=== PATIENT | male | born 1965 | race Caucasian/White ===

== ENCOUNTER → 2016-08-07 | Outpatient (CLI) | payer OTHER, BC ==
[~2016-08-07] MED LIST: ANDROGEL TOP; MOME50SP5; MULT-506 PO; PRLSR20 PO; SERT-234 PO
[2016-08-07 15:54] LABS: BASO % 0.2 %; BASO ABS # 0.01 K/uL (0-0.2); COMPLETE YES; EOS % 2.6 %; HEMATOCRIT 42.5 % (42-52); IG% 0.7 %; LYMPH % 15.4 %; LYMPH ABS # 0.94 K/uL (1.2-3.4); MEAN CELL VOLUME 88.5 fL (80-100); MEAN CORPUSCULAR HEMOGLOBIN 32.1 pg (25-34); MEAN CORPUSCULAR HGB CONC 36.2 g/dl (32-36); MEAN PLATELET VOLUME 10.4 fL (7.4-10.4); MONO % 6.9 %; NEUT % 74.2 %; PLATELET COUNT 175 K/uL (130-400)
--- NOTE | 2016-08-07 15:59 | DIAGNOSTIC IMAGING REPORT ---
LEFT SHOULDER MIN 2 VIEWS ROUTINE CLINICAL HISTORY: ARTHRITIS pain COMPARISON: None. DISCUSSION: The bones and joint spaces appear intact. There is no evidence of fracture, dislocation or bony disease. There is no evidence for soft tissue swelling. IMPRESSION: Negative study. Electronically signed by: Chito Noe M.D. 08/07/2016 3:57 PM Dictated Date/Time: 08/07/2016 3:57 PM
--- NOTE | 2016-08-07 16:00 | DIAGNOSTIC IMAGING REPORT ---
RIGHT SHOULDER MIN 2 VIEWS ROUTINE CLINICAL HISTORY: ARTHRITIS Right COMPARISON: None. DISCUSSION: The bones and joint spaces appear intact. There is no evidence of fracture, dislocation or bony disease. Minimal to mild degenerative change acromioclavicular joint. IMPRESSION: Minimal degenerative change acromioclavicular joint. Otherwise negative study. Electronically signed by: Chito Noe M.D. 08/07/2016 3:58 PM Dictated Date/Time: 08/07/2016 3:58 PM
--- NOTE | 2016-08-07 16:01 | DIAGNOSTIC IMAGING REPORT ---
RIGHT HAND MIN 3 VIEWS ROUTINE, LEFT HAND MIN 3 VIEWS ROUTINE CLINICAL HISTORY: ARTHRITIS Right. Bilateral hand pain. COMPARISON STUDY: None. FINDINGS: No fracture or dislocation. Soft tissues are unremarkable. No erosions identified. Bone mineralization is intact. Minimal cartilage space narrowing at the DIP joints. IMPRESSION: Minimal degenerative changes at the bilateral DIP joints. No erosions identified. Electronically signed by: Kme Mendieta M.D. 08/07/2016 4:00 PM Dictated Date/Time: 08/07/2016 3:57 PM
--- NOTE | 2016-08-07 16:01 | DIAGNOSTIC IMAGING REPORT ---
RIGHT HIP UNILATERAL 2 VIEWS CLINICAL HISTORY: ARTHRITIS Right pain COMPARISON: None. DISCUSSION: The bones and joint spaces appear intact. There is no evidence of fracture, dislocation or bony disease. There is no evidence for soft tissue swelling. IMPRESSION: Negative study. Electronically signed by: Chito Noe M.D. 08/07/2016 4:00 PM Dictated Date/Time: 08/07/2016 3:59 PM
--- NOTE | 2016-08-07 16:04 | DIAGNOSTIC IMAGING REPORT ---
LEFT HIP 2 VIEWS HISTORY: Left hip pain. ARTHRITIS COMPARISON: None. FINDINGS: There is no fracture or dislocation. Soft tissues are unremarkable. No radiopaque foreign bodies. The left hip cartilage space is maintained for age. Bone mineralization is intact. IMPRESSION: No significant degenerative changes within the left hip. Electronically signed by: Kem Mendieta M.D. 08/07/2016 4:02 PM Dictated Date/Time: 08/07/2016 4:01 PM
[2016-08-07 16:53] LABS: TOTAL IRON BINDING CAPACITY 376 mcg/dl (250-450)
[2016-08-07 16:54] LABS: ALKALINE PHOSPHATASE 86 U/L (45-117); AST/SGOT 26 U/L (15-37); BLOOD UREA NITROGEN 17 mg/dl (7-18); BUN/CREATININE RATIO 17.2 (10-20); CALCIUM 7.9 mg/dl (8.5-10.1); CARBON DIOXIDE 25 mmol/L (21-32); CHLORIDE 108 mmol/L (98-107); CREATININE 0.99 mg/dl (0.60-1.40); POTASSIUM 4.1 mmol/L (3.5-5.1); RHEUMATOID FACTOR < 10.0 U/mL (0-15); SODIUM 143 mmol/L (136-145)
[2016-08-07 16:56] LABS: ALB/GLOB RATIO 1.4 (0.9-2)
[2016-08-07 16:57] LABS: ALT/SGPT 50 U/L (12-78)
[2016-08-07 17:18] LABS: GLUCOSE 104 mg/dl (70-99)
[2016-08-12 04:29] LABS: 18KDIGG BAND NONREACTIVE (NONREACTIVE); 23KDIGG BAND NONREACTIVE (NONREACTIVE); 23KDIGM BAND NONREACTIVE (NONREACTIVE); 28KDIGG BAND NONREACTIVE (NONREACTIVE); 30KDIGG BAND NONREACTIVE (NONREACTIVE); 39KDIGG BAND NONREACTIVE (NONREACTIVE); 39KDIGM BAND NONREACTIVE (NONREACTIVE); 41KDIGG BAND NONREACTIVE (NONREACTIVE); 41KDIGM BAND NONREACTIVE (NONREACTIVE); 45KDIGG BAND NONREACTIVE (NONREACTIVE); 58KDIGG BAND NONREACTIVE (NONREACTIVE); 66KDIGG BAND NONREACTIVE (NONREACTIVE); 93KDIGG BAND NONREACTIVE (NONREACTIVE)
== END | disposition home or self-care (01) ==
LOC: C.RAD 14:43
PROVIDERS: ATTEND Family Medicine
DX: R53.83 Other fatigue (principal); M25.50 Pain in unspecified joint; M19.90 Unspecified osteoarthritis, unspecified site

== ENCOUNTER → 2016-09-04 | Outpatient (CLI) | payer OTHER, BC ==
[2016-09-04 12:52] LABS: THYROID STIMULATING HORMONE 1.51 uIu/ml (0.300-4.500)
== END | disposition home or self-care (01) ==
LOC: C.LABBFT 10:24
PROVIDERS: ATTEND Family Medicine
DX: E03.9 Hypothyroidism, unspecified (principal)

== ENCOUNTER 2021-10-01 16:04 | Observation (INO) ==
--- NOTE | 2021-10-01 16:08 | Emergency Department Note ---
Impression & Plan TIA (transient ischemic attack), Hyponatremia ED Provider Note NAME: OUSMANE LISA AGE: 55 SEX: M : 1965 ARRIVES VIA: Ambulance INFORMANT: Patient, ED PROVIDER(S): Reinaldo Kwon MD Chief Complaint: Right upper extremity weakness and facial droop, stroke alert HPI: Patient presents as a stroke alert from EMS. Patient's last known well was 3 PM when the patient developed right-sided facial weakness and right upper extremity weakness. Patient reportedly had improvement in symptoms while he was evaluated by EMS and had a normal BSG. The patient currently denies any symptoms head or neck pain. The patient denies any chest pain or shortness of breath. The patient did have some nausea with associated vomiting after receiving the CAT scan dye. Patient denies any prior history of stroke or mini stroke. Patient denies any history of seizure. Patient denies any alcohol tobacco or drug use. A code stroke was initiated in the field and the patient was taken directly to CT scan prior to my evaluation. ROS: See HPI for pertinent positives and negatives. A total of 10 systems were reviewed and otherwise negative. Past medical history: See below Surgical history: See below Social history: See below Physical Exam: GENERAL: NAD, wearing a mask, non-toxic. EYE EXAM: Normal conjunctiva. PERRL, no anisocoria and EOM's grossly intact w/o pain. OROPHARYNX: Moist mucus membranes. Grossly normal dentition. NECK: Supple, no nuchal rigidity, no adenopathy, non-tender. No signs of meningismus. LUNGS: Clear to auscultation. Normal chest wall mechanics. HEART: NSR, no MRG. ABDOMEN: Abdomen soft, non-tender, normo-active bowel sounds, no masses, no rebound or guarding. BACK: No CVA TTP. SKIN: No rashes and no bruising. UPPER EXTREMITIES: Upper extremities are grossly normal. LOWER EXTREMITIES: Grossly normal, no edema. NEURO EXAM: A&O x3, cranial nerves II-XII grossly intact, normal speech, moves all 4 extremities on command w/o issue. Good finger to nose, no drift, no sensory deficits. Differential diagnoses: Infection, dehydration, metabolic abnormality, hypo/hyperglycemia, electrolyte disturbance, anemia, hypoxia, cardiac sources, intracerebral event, toxicologic, neurologic, as well as other pathologies. Course: Patient was seen and evaluated the bedside. Full history physical exam was performed. EKG interpreted by me Normal sinus rhythm, rate of 60, normal intervals, normal axis, no ST changes or T WI. Imaging Studies: See Below Cardiac monitoring: An order was placed for continuous cardiac monitoring. The monitor shows a rate of 62 with sinus rhythm. MDM: Patient was seen due to concern for strokelike symptoms. I did evaluate the patient the patient did not have any obvious concerning findings on exam. The patient may have had slight difficulty with [id number] of the left upper extremity but the patient did not have any evidence of right upper extremity weakness or facial droop. I did convey these findings and symptoms to the telestroke neurologist Dr. Maya. She stated that she would be happy to evaluate the patient but stated that this would likely not change the patient's overall disposition unless there was concern on the patient's CT or CT angiography's. She did recommend that the patient be given aspirin and Plavix as there is no evidence of bleeding. She stated the Plavix would be a 300 load and then subsequently at 75. She recommended checking lipid panel MRI brain, hemoglobin A1c and echocardiogram. The patient CT head and CT angiography head and neck are negative. Blood work shows a normal white count virtually normal hemoglobin at 13.9. Platelet count is unremarkable. Patient's kidney function is unremarkable with mild hyponatremia. COVID-negative. The patient was ordered baby aspirin and 300 of Plavix. I did speak with the on-call hospitalist Dr. Velarde. The patient was admitted to the medicine service. MR brain ordered and pending at the time of admission. Past Med/Surg History Medical History Arthritis Depression GERD (gastroesophageal reflux disease) Severe persistent asthma Tremor Surgical History History of appendectomy History of carpal tunnel surgery History of cholecystectomy Family History Other Cancer Diabetes Denies family history of Heart disease Lung disease Asthma Social History (Updated 10/01/21 @ 19:14 by Reinaldo Kwon MD) Smoking Status: Never smoker Hx Alcohol Use: No Hx Substance Use: No Feels Safe at Home: Yes Allergies Allergies Allergy/AdvReac Type Severity Reaction Status Date / Time oxycodone Allergy Intermediate Vomiting Verified 10/01/21 16:44 hydrocodone AdvReac Intermediate Vomiting Verified 10/01/21 16:44 Home Meds Home Medications Medication Instructions Recorded Confirmed omeprazole magnesium 20 mg 20 mg PO QAM 11/05/19 10/01/21 tablet,delayed release diclofenac potassium 50 mg tablet 100 mg PO TID 12/24/20 10/01/21 sertraline 100 mg tablet 200 mg PO DAILY 12/24/20 10/01/21 budesonide 0.5 mg/2 mL suspension 0.5 mg INHALATION BID PRN 10/01/21 10/01/21 for nebulization cetirizine 10 mg tablet 10 mg PO DAILY 10/01/21 10/01/21 fluticasone propionate 50 1 - 2 spray INTRANASAL BID PRN 10/01/21 10/01/21 mcg/actuation nasal spray,suspension ibuprofen 200 mg tablet 400 - 600 mg PO DIRECTED PRN 10/01/21 10/01/21 methylprednisolone 4 mg tablet 0 mg PO DAILY 10/01/21 10/01/21 propranolol 20 mg tablet 20 mg PO TID PRN 10/01/21 10/01/21 Results & Data (ED) Vital Signs Vital Signs - 24 hr 10/01/21 16:25 10/01/21 16:56 10/01/21 17:56 Temperature 36.8 C 36.5 C Temperature Source Oral Oral Pulse Rate 63 Pulse Rate [Apical] 59 L 70 Pulse Rhythm Regular Pulse Strength Normal Respiratory Rate 15 15 16 Respiratory Effort / Characteristics Non-Labored Spontaneous Respiratory Depth Normal Respiratory Pattern Regular Blood Pressure 164/96 H Blood Pressure [Right Arm] 126/79 129/70 Blood Pressure Mean 118 Blood Pressure Mean [Right Arm] 94 89 Blood Pressure Position Lying Blood Pressure Position [Right Arm] Lying Pulse Oximetry 94 96 94 Oxygen Delivery Method Room Air Room Air Sepsis Recent Fever Within 48 Hours No Sepsis New/Unexplained Change in Mental Status No Sepsis Action Taken by Nursing No Action Required Home Medications Current Medication List: was personally reviewed by me Laboratory Data Attestation: I reviewed the patient's lab results. Result diagrams: 10/01/21 16:21 10/01/21 16:21 Lab Results 10/01/21 10/01/21 10/01/21 Range/Units 16:21 16:21 16:21 WBC 5.75 (4.8-10.8) K/uL RBC 4.48 L (4.7-6.1) M/uL Hgb 13.9 L (14.0-18.0) g/dL Hct 39.5 L (42-52) % MCV 88.2 (80-100) fL MCH 31.0 (25-34) pg MCHC 35.2 (32-36) g/dL RDW Std Deviation 46.6 H (36.4-46.3) fL RDW Coeff of Cheryl 14.4 (11.5-14.5) % Plt Count 176 (130-400) K/uL MPV 9.2 (7.4-10.4) fL Immature Gran % (Auto) 0.2 % Neut % (Auto) 60.9 % Lymph % (Auto) 24.2 % [place] % (Auto) 7.7 % Eos % (Auto) 6.8 % Baso % (Auto) 0.2 % Neut # (Auto) 3.51 (1.4-6.5) K/uL Lymph # (Auto) 1.39 (1.2-3.4) K/uL [place] # (Auto) 0.44 (0.11-0.59) K/uL Eos # (Auto) 0.39 (0-0.5) K/uL Baso # (Auto) 0.01 (0-0.2) K/uL Immature Gran # (Auto) 0.01 (0.00-0.02) K/uL PT 11.3 (9.0-12.0) Seconds INR 1.1 (0.9-1.1) APTT 41.6 H (21.0-31.0) Seconds PTT Ratio 1.5 Sodium 133 L (136-145) mmol/L Potassium 4.0 (3.5-5.1) mmol/L Chloride 99 (98-107) mmol/L Carbon Dioxide 30 (21-32) mmol/L Anion Gap 4 (3-11) BUN 16 (6-23) mg/dl Creatinine 1.11 (0.6-1.4) mg/dl Est Cr Clr Drug Dosing 89.6 ml/min Est GFR ( Amer) 85.6 ml/min Est GFR (Non-Af Amer) 73.8 ml/min BUN/Creatinine Ratio 14.4 (10-20) Glucose 83 (70-99(Fasting)) mg/dl Calcium 8.6 (8.5-10.1) mg/dl Magnesium 1.8 (1.7-2.4) mg/dl Total Bilirubin 1.0 (0.2-1.0) mg/dl AST 17 (13-39) U/L ALT 16 (7-52) U/L Alkaline Phosphatase 66 (34-104) U/L Troponin I High Sens 3.6 (0-20) pg/ml Total Protein 7.0 (6.0-8.3) gm/dl Albumin 4.2 (3.4-5.0) gm/dl Globulin 2.8 (2.5-4.0) gm/dl Albumin/Globulin Ratio 1.5 (0.9-2) SARS-CoV-2, RNA, NAAT (NEGATIVE) 10/01/21 Range/Units 17:50 WBC (4.8-10.8) K/uL RBC (4.7-6.1) M/uL Hgb (14.0-18.0) g/dL Hct (42-52) % MCV (80-100) fL MCH (25-34) pg MCHC (32-36) g/dL RDW Std Deviation (36.4-46.3) fL RDW Coeff of Cheryl (11.5-14.5) % Plt Count (130-400) K/uL MPV (7.4-10.4) fL Immature Gran % (Auto) % Neut % (Auto) % Lymph % (Auto) % [place] % (Auto) % Eos % (Auto) % Baso % (Auto) % Neut # (Auto) (1.4-6.5) K/uL Lymph # (Auto) (1.2-3.4) K/uL [place] # (Auto) (0.11-0.59) K/uL Eos # (Auto) (0-0.5) K/uL Baso # (Auto) (0-0.2) K/uL Immature Gran # (Auto) (0.00-0.02) K/uL PT (9.0-12.0) Seconds INR (0.9-1.1) APTT (21.0-31.0) Seconds PTT Ratio Sodium (136-145) mmol/L Potassium (3.5-5.1) mmol/L Chloride (98-107) mmol/L Carbon Dioxide (21-32) mmol/L Anion Gap (3-11) BUN (6-23) mg/dl Creatinine (0.6-1.4) mg/dl Est Cr Clr Drug Dosing ml/min Est GFR ( Amer) ml/min Est GFR (Non-Af Amer) ml/min BUN/Creatinine Ratio (10-20) Glucose (70-99(Fasting)) mg/dl Calcium (8.5-10.1) mg/dl Magnesium (1.7-2.4) mg/dl Total Bilirubin (0.2-1.0) mg/dl AST (13-39) U/L ALT (7-52) U/L Alkaline Phosphatase (34-104) U/L Troponin I High Sens (0-20) pg/ml Total Protein (6.0-8.3) gm/dl Albumin (3.4-5.0) gm/dl Globulin (2.5-4.0) gm/dl Albumin/Globulin Ratio (0.9-2) SARS-CoV-2, RNA, NAAT NEGATIVE (NEGATIVE) Administered Medications Discontinued Medications Aspirin (Aspirin Chew 324 Mg) 81 mg PO NOW STA Stop: 10/01/21 17:46 Last Admin: 10/01/21 17:57 Dose: 81 mg Documented by: [id number] Clopidogrel Bisulfate (Clopidogrel Bisulfate 300 Mg Tab) 300 mg PO NOW STA Stop: 10/01/21 17:46 Last Admin: 10/01/21 17:57 Dose: 300 mg Documented by: [id number] Ioversol (Optiray 320 125ml) 120 ml IV ONCE ONE Stop: 10/01/21 16:10 Last Admin: 10/01/21 16:14 Dose: 120 ml Documented by: [id number] Imaging Data Radiologist's Impression: Head CT 10/01/21 16:01 CT angio head w con, CT head/brain wo con, CT angio neck with con CLINICAL HISTORY: Stroke Like Symptoms. Right facial droop, slurred speech TECHNIQUE: Contiguous axial CT images of the head were acquired from the base of the skull to the vertex without intravenous contrast administration. CT angiography of the head and neck was performed following intravenous administration of iodinated contrast. Coronal and sagittal MIPS were obtained from the axial data set and were submitted for review. Automated dose lowering techniques and/or adjustment according to patient size were utilized for this examination. All measurements were calculated based on NASCET criteria. CT DOSE: 1217.16 mGy.cm Comparison: None available at the time of this dictation. FINDINGS: CT head: There is no acute intracranial hemorrhage or evidence of acute territorial infarction. No shift of the midline structures, mass effect, or extra-axial abnormalities are shown. Soft tissue thickening is seen in the ethmoid air cells and bilateral maxillary sinuses. Lungs and soft tissues are unremarkable. CTA Neck: A 3 vessel aortic arch is shown. There is no significant atheroscle rotic plaque in the aortic arch or the origins of the innominate, left common carotid, and left subclavian arteries. The common carotid, external carotid, cervical segments of the internal carotid arteries, and the cervical segments of the vertebral arteries are patent without hemodynamically significant stenosis. The left vertebral artery is dominant. CTA Head: The anterior and posterior cerebral circulations are patent. No hemodynamically significant stenosis, aneurysm, dissection, or arteriovenous malformation is shown. Atherosclerotic disease is noted. IMPRESSION: 1. No acute intracranial hemorrhage, evidence of acute territorial infarction, or other acute intracranial disease process. 2. No occlusion, hemodynamically significant stenosis, aneurysm, dissection, or arteriovenous malformation in the major intracranial arteries. 3. No occlusion, hemodynamically significant stenosis, or dissection in the major cervical arteries. Assessment of stenosis of the internal carotid arteries is based on NASCET criteria. ACT 112: Negative or not required by law. Electronically signed by: Sebas Wasserman M.D. 10/01/2021 4:47 PM Head CTA 10/01/21 16:01 CT angio head w con, CT head/brain wo con, CT angio neck with con CLINICAL HISTORY: Stroke Like Symptoms. Right facial droop, slurred speech TECHNIQUE: Contiguous axial CT images of the head were acquired from the base of the skull to the vertex without intravenous contrast administration. CT angiography of the head and neck was performed following intravenous administration of iodinated contrast. Coronal and sagittal MIPS were obtained from the axial data set and were submitted for review. Automated dose lowering techniques and/or adjustment according to patient size were utilized for this examination. All measurements were calculated based on NASCET criteria. CT DOSE: 1217.16 mGy.cm Comparison: None available at the time of this dictation. FINDINGS: CT head: There is no acute intracranial hemorrhage or evidence of acute territorial infarction. No shift of the midline structures, mass effect, or extra-axial abnormalities are shown. Soft tissue thickening is seen in the ethmoid air cells and bilateral maxillary sinuses. Lungs and soft tissues are unremarkable. CTA Neck: A 3 vessel aortic arch is shown. There is no significant atherosclerotic plaque in the aortic arch or the origins of the innominate, left common carotid, and left subclavian arteries. The common carotid, external carotid, cervical segments of the internal carotid arteries, and the cervical segments of the vertebral arteries are patent without hemodynamically significant stenosis. The left vertebral artery is dominant. CTA Head: The anterior and posterior cerebral circulations are patent. No hemodynamically significant stenosis, aneurysm, dissection, or arteriovenous malformation is shown. Atherosclerotic disease is noted. IMPRESSION: 1. No acute intracranial hemorrhage, evidence of acute territorial infarction, or other acute intracranial disease process. 2. No occlusion, hemodynamically significant stenosis, aneurysm, dissection, or arteriovenous malformation in the major intracranial arteries. 3. No occlusion, hemodynamically significant stenosis, or dissection in the major cervical arteries. Assessment of stenosis of the internal carotid arteries is based on NASCET criteria. ACT 112: Negative or not required by law. Electronically signed by: Sebas Wasserman M.D. 10/01/2021 4:47 PM Neck CTA 10/01/21 16:01 CT angio head w con, CT head/brain wo con, CT angio neck with con CLINICAL HISTORY: Stroke Like Symptoms. Right facial droop, slurred speech TECHNIQUE: Contiguous axial CT images of the head were acquired from the base of the skull to the vertex without intravenous contrast administration. CT angiography of the head and neck was performed following intravenous administration of iodinated contrast. Coronal and sagittal MIPS were obtained from the axial data set and were submitted for review. Automated dose lowering techniques and/or adjustment according to patient size were utilized for this examination. All measurements were calculated based on NASCET criteria. CT DOSE: 1217.16 mGy.cm Comparison: None available at the time of this dictation. FINDINGS: CT head: There is no acute intracranial hemorrhage or evidence of acute ter ritorial infarction. No shift of the midline structures, mass effect, or extra- axial abnormalities are shown. Soft tissue thickening is seen in the ethmoid air cells and bilateral maxillary sinuses. Lungs and soft tissues are unremarkable. CTA Neck: A 3 vessel aortic arch is shown. There is no significant atherosclerotic plaque in the aortic arch or the origins of the innominate, left common carotid, and left subclavian arteries. The common carotid, external carotid, cervical segments of the internal carotid arteries, and the cervical segments of the vertebral arteries are patent without hemodynamically significant stenosis. The left vertebral artery is dominant. CTA Head: The anterior and posterior cerebral circulations are patent. No hemodynamically significant stenosis, aneurysm, dissection, or arteriovenous malformation is shown. Atherosclerotic disease is noted. IMPRESSION: 1. No acute intracranial hemorrhage, evidence of acute territorial infarction, or other acute intracranial disease process. 2. No occlusion, hemodynamically significant stenosis, aneurysm, dissection, or arteriovenous malformation in the major intracranial arteries. 3. No occlusion, hemodynamically significant stenosis, or dissection in the major cervical arteries. Assessment of stenosis of the internal carotid arteries is based on NASCET criteria. ACT 112: Negative or not required by law. Electronically signed by: Sebas Wasserman M.D. 10/01/2021 4:47 PM Discharge Plan Visit Data Chief Complaint: Stroke Alert Stated Complaint: STROKE SX ED Provider: Reinaldo Kwon Discharge Problem: TIA (transient ischemic attack), Hyponatremia Patient Disposition: Admitted As Inpatient Forms Stand Alone Forms: [facility] Prescriptions Prescriptions: No Action omeprazole magnesium 20 mg tablet,delayed release (DR/EC) 20 mg PO QAM RF: 0 sertraline 100 mg tablet 200 mg PO DAILY RF: 0 diclofenac potassium 50 mg tablet 100 mg PO TID RF: 0 cetirizine 10 mg tablet 10 mg PO DAILY RF: 0 methylprednisolone 4 mg tablet 0 mg PO DAILY RF: 0 ibuprofen 200 mg Tablet 400 - 600 mg PO DIRECTED PRN (Reason: Pain) RF: 0 budesonide 0.5 mg/2 mL suspension for nebulization 0.5 mg inhalation BID PRN (Reason: Shortness Of Breath) RF: 0 propranolol 20 mg tablet 20 mg PO TID PRN (Reason: TREMORS) RF: 0 fluticasone propionate 50 mcg/actuation spray,suspension 1 - 2 spray INTRANASAL BID PRN (Reason: Congestion) RF: 0 Referrals Referrals: Song Pride MD [Primary Care Provider] -
[2021-10-01] MEDS ORDERED: OPTIRAY 320 125ml IV ONE (16:09)
[2021-10-01 16:38] LABS: Basophils # (auto) 0.01 K/uL (0-0.2); Basophils % (auto) 0.2 %; Eosinophils # (auto) 0.39 K/uL (0-0.5); Eosinophils % (auto) 6.8 %; Hematocrit (blood only) 39.5 % (42-52); Hemoglobin 13.9 g/dL (14.0-18.0); Immature Granulocytes # (auto) 0.01 K/uL (0.00-0.02); Immature Granulocytes % (auto) 0.2 %; Lymphocytes # (auto) 1.39 K/uL (1.2-3.4); Lymphocytes % (auto) 24.2 %; Mean Corpuscular Hgb Conc 35.2 g/dL (32-36); Mean Corpuscular Volume 88.2 fL (80-100); Mean Platelet Volume 9.2 fL (7.4-10.4); Monocytes # (auto) 0.44 K/uL (0.11-0.59); Monocytes % (auto) 7.7 %; Neutrophils # (auto) 3.51 K/uL (1.4-6.5); Neutrophils % (auto) 60.9 %; Platelet Count 176 K/uL (130-400); RDW Coefficient of Variation 14.4 % (11.5-14.5); RDW Standard Deviation 46.6 fL (36.4-46.3); Red Blood Count 4.48 M/uL (4.7-6.1); White Blood Count 5.75 K/uL (4.8-10.8)
--- NOTE | 2021-10-01 16:49 | CT Scan Report ---
CT angio head w con, CT head/brain wo con, CT angio neck with con CLINICAL HISTORY: Stroke Like Symptoms. Right facial droop, slurred speech TECHNIQUE: Contiguous axial CT images of the head were acquired from the base of the skull to the lui ace without intravenous contrast administration. CT angiography of the head and neck was performed f ollowing intravenous administration of iodinated contrast. Coronal and sagittal MIPS were obtained fr om the axial data set and were submitted for review. Automated dose lowering techniques and/or adjus tment according to patient size were utilized for this examination. All measurements were calculated based on NASCET criteria. CT DOSE: 1217.16 mGy.cm Comparison: None available at the time of this dictation. FINDINGS: CT head: There is no acute intracranial hemorrhage or evidence of acute territorial infarction. No sh ift of the midline structures, mass effect, or extra-axial abnormalities are shown. Soft tissue thick ening is seen in the ethmoid air cells and bilateral maxillary sinuses. Lungs and soft tissues are unremarkable. CTA Neck: A 3 vessel aortic arch is shown. There is no significant atherosclerotic plaque in the aor tic arch or the origins of the innominate, left common carotid, and left subclavian arteries. The c ommon carotid, external carotid, cervical segments of the internal carotid arteries, and the cervical segments of the vertebral arteries are patent without hemodynamically significant stenosis. The left vertebral artery is dominant. CTA Head: The anterior and posterior cerebral circulations are patent. No hemodynamically significan t stenosis, aneurysm, dissection, or arteriovenous malformation is shown. Atherosclerotic disease is noted. IMPRESSION: 1. No acute intracranial hemorrhage, evidence of acute territorial infarction, or other acute intrac ranial disease process. 2. No occlusion, hemodynamically significant stenosis, aneurysm, dissection, or arteriovenous malfor mation in the major intracranial arteries. 3. No occlusion, hemodynamically significant stenosis, or dissection in the major cervical arteries. Assessment of stenosis of the internal carotid arteries is based on NASCET criteria. ACT 112: Negative or not required by law. Electronically signed by: Sebas Wasserman M.D. 10/01/2021 4:47 PM
[2021-10-01 16:52] LABS: INR 1.1 (0.9-1.1); Partial Thromboplastin Ratio 1.5; Partial Thromboplastin Time 41.6 Seconds (21.0-31.0); Prothrombin Time 11.3 Seconds (9.0-12.0)
[2021-10-01 16:57] LABS: Albumin Globulin Ratio 1.5 (0.9-2); Albumin Level 4.2 gm/dl (3.4-5.0); BUN Creatinine Ratio 14.4 (10-20); Calcium 8.6 mg/dl (8.5-10.1); Creatinine Clr Calc Pharmacy 89.6 ml/min; Est GFR (African American) 85.6 ml/min; Est GFR (Non-African American) 73.8 ml/min; Globulin 2.8 gm/dl (2.5-4.0); Magnesium 1.8 mg/dl (1.7-2.4)
[2021-10-01 17:03] LABS: Troponin I High Sensitivity 3.6 pg/ml (0-20)
[2021-10-01] MEDS ORDERED: CLOPIDOGREL BISULFATE 300 MG TAB PO STA (17:45)
[2021-10-01] MEDS ORDERED: ASPIRIN CHEW 324 MG PO STA (17:45)
--- NOTE | 2021-10-01 18:00 | History & Physical Report ---
Date of Service October 01, 2021 Assessment & Plan (1) TIA (transient ischemic attack): Plan: - Admit to telemetry for 24 hours, evaluate for episodes of atrial fibrillation. - Aspirin + Plavix given in ED per telestroke. - Head CT, CTA of head and neck as above, no significant stenosis. - Echo in a.m. - CBC, BMP, HbA1c, lipid panel in a.m. - PT, OT to evaluate in a.m. - Avoid hypotension, hypoglycemia. (2) Hyponatremia: Plan: - Na 133. - Continue to monitor on a.m. labs. (3) Severe persistent asthma: Plan: - Apparently being worked up for unknown lung dz at [facility]. - Continue budesonide and Flonase twice daily. - Continue Zyrtec and methylprednisolone daily. (4) GERD (gastroesophageal reflux disease): Plan: - Continue PPI. (5) Tremor: Plan: - Continue propranolol 20 mg 3 times daily as needed. (6) Depression: Plan: - Continue Zoloft 200 mg daily. (7) Arthritis: Plan: - Continue diclofenac. Ibuprofen prn. Plan: - Med/tele for observation overnight. - SCDs for DVT ppx. - Full Code. History of Present Illness Chief Complaint: RUE numbness, right facial droop Primary Care Provider: Song Pride MD Patient is a 55-year-old male with past medical history of interstitial lung disease, asthma, depression, tremor, GERD, arthritis who presents today with right upper extremity numbness, right facial droop, and confusion for 1 hour patient was outside with his when he complained to her that his right arm was numb and weak. At this time she noticed right-sided facial droop. She immediately called EMS for transportation to ED for evaluation. During this, he had intermittent episodes of confusion, there were periods of time he was unable to comprehend questions being asked to him, and other times when he could comprehend questions but was unable to get his words out to respond appropr iately. This is all resolved by the time they arrived to the ED. He denies headache, nausea, vomiting, chest pain, palpitations, shortness of breath, dizziness, visual changes with this. He has not experienced something like this before. Did have one episode of emesis during CT, otherwise feels he is back to his baseline. In ED, vital signs within normal limits and stable. Labs largely nonsignificant, sodium 133. Hemoglobin 13.9, stable. Head CT, as well as head and neck CTA all unrevealing. Telestroke service consulted, recommend aspirin with clopidogrel loading dose. Hospitalist service consulted for further evaluation and admission. Allergies Allergy/AdvReac Type Severity Reaction Status Date / Time oxycodone Allergy Intermediate Vomiting Verified 10/01/21 16:44 hydrocodone AdvReac Intermediate Vomiting Verified 10/01/21 16:44 Home Medications Medication Instructions Recorded Confirmed Type omeprazole magnesium 20 mg 20 mg PO QAM 11/05/19 10/01/21 History tablet,delayed release diclofenac potassium 50 mg tablet 100 mg PO TID 12/24/20 10/01/21 History sertraline 100 mg tablet 200 mg PO DAILY 12/24/20 10/01/21 History budesonide 0.5 mg/2 mL suspension 0.5 mg INHALATION BID PRN 10/01/21 10/01/21 History for nebulization cetirizine 10 mg tablet 10 mg PO DAILY 10/01/21 10/01/21 History fluticasone propionate 50 1 - 2 spray INTRANASAL BID PRN 10/01/21 10/01/21 History mcg/actuation nasal spray,suspension ibuprofen 200 mg tablet 400 - 600 mg PO DIRECTED PRN 10/01/21 10/01/21 History methylprednisolone 4 mg tablet 0 mg PO DAILY 10/01/21 10/01/21 History propranolol 20 mg tablet 20 mg PO TID PRN 10/01/21 10/01/21 History Past Med/Surg History Medical History Arthritis Depression GERD (gastroesophageal reflux disease) Severe persistent asthma Tremor Surgical History History of appendectomy History of carpal tunnel surgery History of cholecystectomy Family History Other Cancer Diabetes Denies family history of Heart disease Lung disease Asthma Social History (Updated 10/01/21 @ 19:14 by Reinaldo Kwon MD) Smoking Status: Never smoker Hx Alcohol Use: No Hx Substance Use: No Current Living Situation: Spouse Feels Safe at Home: Yes Safety Concerns: Feels Safe At This Time Assistive Devices: None Review of Systems Review of Systems: Constitutional: No fever/chills, weakness, fatigue, myalgias, anorexia, night sweats Eyes: No diplopia, no worsening or blurred vision ENT: normal hearing, no trouble swallowing Respiratory: No cough, sputum, dyspnea at rest or on exertion Cardiovascular: No chest pain, tightness or palpitations Abdomen: No pain, nausea, vomiting, diarrhea or constipation : Denies dysuria, hematuria, increased urgency/frequency, urinary retention Musculoskeletal: No joint pain, calf pain, swelling Neurologic: RUE numbness/weakness, R facial droop, acute confusion x 1 hour today, resolved; No balance problems Psychiatric: No anxiety or depression Skin: No rash or itch Physical Exam Physical Exam: General: awake, alert, no apparent distress Head: Normocephalic, atraumatic ENT: PERRL, EOMI, no pharyngeal exudate, mucous membranes moist Chest: Clear to auscultation, on room air, no adventitious breath sounds Cardiac: Regular rate and rhythm, no murmur, no JVD, normal peripheral pulses, good capillary refill Abdominal: NABS x 4 quadrants, soft, nontender to palpation, no rebound, guarding or tenderness Extremities: Normal inspection, no peripheral edema or erythema, calfs nontender to palpation Psych: Normal mood and affect Neuro: AAO x 3, strength intact bilaterally and rated 5/5, no motor deficits, speech is clear, no peripheral sensory deficits Skin: no rash or erythema Results & Data Results & Data ([facility]) Vital Signs (Past 12 Hours) Vital Signs Temp Pulse Pulse Resp BP BP Pulse Ox 10/01/21 16:56 36.5 C 59 L 15 126/79 96 10/01/21 16:25 36.8 C 63 15 164/96 H 94 Laboratory Results Abnormal lab results 10/01/21 10/01/21 10/01/21 Range/Units 16:21 16:21 16:21 RBC 4.48 L (4.7-6.1) M/uL Hgb 13.9 L (14.0-18.0) g/dL Hct 39.5 L (42-52) % RDW Std Deviation 46.6 H (36.4-46.3) fL APTT 41.6 H (21.0-31.0) Seconds Sodium 133 L (136-145) mmol/L Diagnostic Findings Head CT 10/01/21 16:01 CT angio head w con, CT head/brain wo con, CT angio neck with con CLINICAL HISTORY: Stroke Like Symptoms. Right facial droop, slurred speech TECHNIQUE: Contiguous axial CT images of the head were acquired from the base of the skull to the vertex without intravenous contrast administration. CT angiography of the head and neck was performed following intravenous administration of iodinated contrast. Coronal and sagittal MIPS were obtained from the axial data set and were submitted for review. Automated dose lowering techniques and/or adjustment according to patient size were utilized for this examination. All measurements were calculated based on NASCET criteria. CT DOSE: 1217.16 mGy.cm Comparison: None available at the time of this dictation. FINDINGS: CT head: There is no acute intracranial hemorrhage or evidence of acute territorial infarction. No shift of the midline structures, mass effect, or extra-axial abnormalities are shown. Soft tissue thickening is seen in the ethmoid air cells and bilateral maxillary sinuses. Lungs and soft tissues are unremarkable. CTA Neck: A 3 vessel aortic arch is shown. There is no significant atherosclerotic plaque in the aortic arch or the origins of the innominate, left common carotid, and left subclavian arteries. The common carotid, external carotid, cervical segments of the internal carotid arteries, and the cervical segments of the vertebral arteries are patent without hemodynamically signifi cant stenosis. The left vertebral artery is dominant. CTA Head: The anterior and posterior cerebral circulations are patent. No hemodynamically significant stenosis, aneurysm, dissection, or arteriovenous malformation is shown. Atherosclerotic disease is noted. IMPRESSION: 1. No acute intracranial hemorrhage, evidence of acute territorial infarction, or other acute intracranial disease process. 2. No occlusion, hemodynamically significant stenosis, aneurysm, dissection, or arteriovenous malformation in the major intracranial arteries. 3. No occlusion, hemodynamically significant stenosis, or dissection in the major cervical arteries. Assessment of stenosis of the internal carotid arteries is based on NASCET criteria. ACT 112: Negative or not required by law. Electronically signed by: Sebas Wasserman M.D. 10/01/2021 4:47 PM Head CTA 10/01/21 16:01 CT angio head w con, CT head/brain wo con, CT angio neck with con CLINICAL HISTORY: Stroke Like Symptoms. Right facial droop, slurred speech TECHNIQUE: Contiguous axial CT images of the head were acquired from the base of the skull to the vertex without intravenous contrast administration. CT angiography of the head and neck was performed following intravenous administration of iodinated contrast. Coronal and sagittal MIPS were obtained from the axial data set and were submitted for review. Automated dose lowering techniques and/or adjustment according to patient size were utilized for this examination. All measurements were calculated based on NASCET criteria. CT DOSE: 1217.16 mGy.cm Comparison: None available at the time of this dictation. FINDINGS: CT head: There is no acute intracranial hemorrhage or evidence of acute territorial infarction. No shift of the midline structures, mass effect, or extra-axial abnormalities are shown. Soft tissue thickening is seen in the ethmoid air cells and bilateral maxillary sinuses. Lungs and soft tissues are unremarkable. CTA Neck: A 3 vessel aortic arch is shown. There is no significant atherosclerotic plaque in the aortic arch or the origins of the innominate, left common carotid, and left subclavian arteries. The common carotid, external carotid, cervical segments of the internal carotid arteries, and the cervical segments of the vertebral arteries are patent without hemodynamically significant stenosis. The left vertebral artery is dominant. CTA Head: The anterior and posterior cerebral circulations are patent. No hemodynamically significant stenosis, aneurysm, dissection, or arteriovenous malformation is shown. Atherosclerotic disease is noted. IMPRESSION: 1. No acute intracranial hemorrhage, evidence of acute territorial infarction, or other acute intracranial disease process. 2. No occlusion, hemodynamically significant stenosis, aneurysm, dissection, or arteriovenous malformation in the major intracranial arteries. 3. No occlusion, hemodynamically significant stenosis, or dissection in the major cervical arteries. Assessment of stenosis of the internal carotid arteries is based on NASCET criteria. ACT 112: Negative or not required by law. Electronically signed by: Sebas Wasserman M.D. 10/01/2021 4:47 PM Neck CTA 10/01/21 16:01 CT angio head w con, CT head/brain wo con, CT angio neck with con CLINICAL HISTORY: Stroke Like Symptoms. Right facial droop, slurred speech TECHNIQUE: Contiguous axial CT images of the head were acquired from the base of the skull to the vertex without intravenous contrast administration. CT angiography of the head and neck was performed following intravenous administration of iodinated contrast. Coronal and sagittal MIPS were obtained from the axial data set and were submitted for review. Automated dose lowering techniques and/or adjustment according to patient size were utilized for this examination. All measurements were calculated based on NASCET criteria. CT DOSE: 1217.16 mGy.cm Comparison: None available at the time of this dictation. FINDINGS: CT head: There is no acute intracranial hemorrhage or evidence of acute territorial infarction. No shift of the midline structures, mass effect, or extra-axial abnormalities are shown. Soft tissue thickening is seen in the ethmoid air cells and bilateral maxillary sinuses. Lungs and soft tissues are unremarkable. CTA Neck: A 3 vessel aortic arch is shown. There is no significant atherosclerotic plaque in the aortic arch or the origins of the innominate, left common carotid, and left subclavian arteries. The common carotid, external carotid, cervical segments of the internal carotid arteries, and the cervical segments of the vertebral arteries are patent without hemodynamically significant stenosis. The left vertebral artery is dominant. CTA Head: The anterior and posterior cerebral circulations are patent. No hemodynamically significant stenosis, aneurysm, dissection, or arteriovenous malformation is shown. Atherosclerotic disease is noted. IMPRESSION: 1. No acute intracranial hemorrhage, evidence of acute territorial infarction, or other acute intracranial disease process. 2. No occlusion, hemodynamically significant stenosis, aneurysm, dissection, or arteriovenous malformation in the major intracranial arteries. 3. No occlusion, hemodynamically significant stenosis, or dissection in the major cervical arteries. Assessment of stenosis of the internal carotid arteries is based on NASCET criteria. ACT 112: Negative or not required by law. Electronically signed by: Sebas Wasserman M.D. 10/01/2021 4:47 PM ECG Additional Comments: Normal sinus rhythm Normal ECG When compared with ECG of 24-DEC-2020 16:09, No significant change was found. Code Status & VTE Plan Code Status Full code. Supervising Physician Co-Signing Physician Notes I personally saw and examined the patient. I verified all dwyer points and agree with Maria L Bryson PA-C with the following exceptions and/or additions: 55 year old male with right upper extremity numbness and motor weakness with right sided facial droop and expressive dysphasia lasting for < 1 hour. Symptoms now completely resolved. O/E A&Ox3, HS1+2, no murmurs, Chest CTAB, no unilateral focal neurological deficit. PERRL, EOMI without diplopia, CN 2-> 12 intact. A/P TIA - Brain MRI pending. TTE. Lipid panel. HbA1C. Symptoms now resolved and can likely go home tomorrow if do not recur. ASA + clopidogrel + atorvastatin. Interstitial lung disease and arthritis - he reports inability to come off steroids and diclofenac no longer working for him. Family history fo RA. Highly recommend rheumatology follow up and autoimmune testing as outpatient as I suspect he has rheumatoid arthritis which also puts him at higher risk of stroke. PG Care Time/CCT Total # of Minutes Spent Total Time Spent with Patient: Total time spent is greater than 50% in coordination of care (as documented) at patient's floor/unit and/or counseling patient: Coding Level of Care Code INT OBSERVATION CARE 70M LVL 3 Diagnoses Severe persistent asthma J45.50 TIA (transient ischemic attack) G45.9 Hyponatremia E87.1 GERD (gastroesophageal reflux disease) K21.9 Tremor R25.1 Depression F32.A Arthritis M19.90
[2021-10-01] MEDS ORDERED: FLUTICASONE PROPIONATE NA SPR 16 GM BTL NAE PRN (19:55)
[2021-10-01] MEDS ORDERED: ONDANSETRON INJ 2 MG/ML 2 ML VIAL IV PRN (19:55)
[2021-10-01] MEDS ORDERED: IBUPROFEN 200 MG TAB PO PRN (19:55)
[2021-10-01] MEDS ORDERED: BUDESONIDE 0.5 MG/2 ML VIAL (PULMICORT) INH PRN (19:55)
[2021-10-01] MEDS ORDERED: PROPRANOLOL HCL 20 MG TAB PO PRN (19:55)
[2021-10-01] MEDS ORDERED: ACETAMINOPHEN 325 MG TAB PO PRN (19:55)
[2021-10-01] MEDS ORDERED: POLYETHYLENE (MIRALAX) 17 GM PACK PO PRN (19:55)
[2021-10-01] MEDS ORDERED: DICLOFENAC SODIUM 25 MG TABDR PO SCH (21:00)
[2021-10-01] MEDS ORDERED: Nursing to Pharmacy Communication SCH (22:00)
[2021-10-02] MEDS ORDERED: methylPREDNISolone 4 MG TAB PO SCH
--- NOTE | 2021-10-02 01:23 | Communication Note ---
Date of Service: October 02, 2021 0121 -- Notified by [facility] radiologist by phone that MRI of brain is NEGATIVE for stroke. [facility] Patient: OUSMANE LISA (Male) : 63 Status: IP Date: 10/02/21 00:58 Room #: 258 History: Patient's last known well was 3 PM when the patient developed right- sided facial weakness and right upper extremity weakness. Patient reportedly had improvement in symptoms while he was evaluated by EMS and had a normal BSG. The patient currently denies any symptoms head or neck pain. Patient denies any prior history of stroke or mini stroke. Patient denies any history of seizure. Patient denies any alcohol tobacco or drug use. Slices: [phone] Priors: Tech: ZiggysixtomeccaPascual [place] @ [phone] Exams: MRI HEAD Contrast: Accession Numbers: [id number] Referring Physician: REFERRED SELF Preliminary Findings Only See Final Report For Complete Findings MRI HEAD : No acute infarct, bleed, or acute intracranial abnormality. Mild to moderate motion artifact. Radiologist: Radha Lilly M.D. Study ready at 01:01 and initial results transmitted at 01:07 Results also transmitted to [facility] ([id number]) @ [phone] (Fax) Communications: Clear Time Type Notes 10/02/21 01:21 Call Doctor Regarding Caitlyn dickerson, called Dr. Bobby on 10/02 01:21 (-04:00) *This report constitutes a preliminary interpretation only. Non-acute findings felt to be unrelated to the clinical presentation may not be discussed in this report. The study will be interpreted and a final report will be generated by the local Radiologist the following shift. To reach the [facility] radiology department call [phone]. If a discrepancy is found between the preliminary and final interpretations of this study, please notify us via our Client Portal at [email or web address], under QA Exams. You can also fax this report with a description of the discrepancy, or include the final report, to our daytime fax number [phone]. If faxing, please indicate the severity of discrepancy using one of the following categories: [ ] 1 - Agree/Informational [ ] 2 - Unlikely to Affect Management [ ] 3 - Possible Eventual Change of Management [ ] 4 - Probable Immediate Change of Management For all other patient related information, please fax us at [phone]. [phone]
[2021-10-02 07:19] LABS: Basophils # (auto) 0.01 K/uL (0-0.2); Basophils % (auto) 0.3 %; Eosinophils # (auto) 0.31 K/uL (0-0.5); Hematocrit (blood only) 38.5 % (42-52); Hemoglobin 13.5 g/dL (14.0-18.0); Immature Granulocytes # (auto) 0.01 K/uL (0.00-0.02); Immature Granulocytes % (auto) 0.3 %; Lymphocytes # (auto) 0.83 K/uL (1.2-3.4); Lymphocytes % (auto) 21.4 %; Mean Corpuscular Hemoglobin 30.7 pg (25-34); Mean Corpuscular Hgb Conc 35.1 g/dL (32-36); Mean Corpuscular Volume 87.5 fL (80-100); Mean Platelet Volume 9.4 fL (7.4-10.4); Monocytes # (auto) 0.32 K/uL (0.11-0.59); Monocytes % (auto) 8.3 %; Neutrophils # (auto) 2.39 K/uL (1.4-6.5); Neutrophils % (auto) 61.7 %; Platelet Count 147 K/uL (130-400); RDW Coefficient of Variation 14.3 % (11.5-14.5); RDW Standard Deviation 45.8 fL (36.4-46.3); White Blood Count 3.87 K/uL (4.8-10.8)
--- NOTE | 2021-10-02 07:40 | Magnetic Resonance Report ---
Brain MRI WITHOUT CONTRAST HISTORY: Right-sided facial weakness and right upper extremity weakness. TECHNIQUE: Multiplanar multisequence MRI of the brain was performed without the use of contrast. COMPARISON STUDY: Head CT 10/01/2021. FINDINGS: There are no areas of restricted diffusion to suggest acute infarction. The midline structu res are intact. Near-complete opacification of the ethmoid air cells with mild to moderate mucosal th ickening within the maxillary sinuses. There are trace fluid levels within the paranasal sinuses. Old punctate lacunar infarct within the right cerebellar hemisphere. The mastoid air cells are clear. Th e ventricles and sulci are within normal limits for age. There is no mass, hematoma, midline shift. T he major vascular flow-voids at the skull base are well maintained. IMPRESSION: No acute intracranial abnormality. Acute on chronic paranasal sinus disease. ACT 112: Negative or not required by law. Electronically signed by: Kem Mendieta M.D. 10/02/2021 7:37 AM
[2021-10-02 07:49] LABS: BUN Creatinine Ratio 12.5 (10-20); Calcium 8.9 mg/dl (8.5-10.1); Chol HDL Ratio 8.1 (0-5); Creatinine Clr Calc Pharmacy 92.7 ml/min; Est GFR (African American) 92.6 ml/min; Est GFR (Non-African American) 79.9 ml/min; Potassium 3.9 mmol/L (3.5-5.1)
[2021-10-02] MEDS: CLOPIDOGREL BISULFATE 75 MG TAB PO SCH (08:12)
[2021-10-02] MEDS: methylPREDNISolone 4 MG TAB PO SCH (08:12)
[2021-10-02] MEDS: SERTRALINE HCL 100 MG TABLET PO SCH (08:12)
[2021-10-02] MEDS: CETIRIZINE HCL 10 MG TABLET PO SCH (08:12)
[2021-10-02] MEDS: PANTOprazole 40 MG TAB PO SCH (08:12)
[2021-10-02] MEDS: ASPIRIN 81 MG ECTAB PO SCH (09:06)
[2021-10-02 10:10] LABS: Partial Thromboplastin Ratio 1.5; Partial Thromboplastin Time 40.7 Seconds (21.0-31.0)
--- NOTE | 2021-10-02 10:18 | Electrocardiogram Report ---
Test Reason : Blood Pressure : / mmHG Vent. Rate : 060 BPM Atrial Rate : 060 BPM P-R Int : 168 ms QRS Dur : 088 ms QT Int : 426 ms P-R-T Axes : 064 -01 060 degrees QTc Int : 426 ms Normal sinus rhythm Normal ECG When compared with ECG of 24-DEC-2020 16:09, No significant change was found Confirmed by Kana Iverson ([id number]) on 10/02/2021 10:17:31 AM Referred By: REFERRED SELF Confirmed By:Kana Iverson
--- NOTE | 2021-10-02 11:34 | CT Scan Report ---
HEAD CT NONCONTRAST CT DOSE: 729.78 mGycm HISTORY: recurrent expressive dysphasia, stroke alert TECHNIQUE: Multiaxial CT images of the head were performed without the use of intravenous contrast. A utomated exposure control was utilized for this study. A dose lowering technique was utilized adheri ng to the principles of ALARA. Comparison: Head CT 10/01/2021 brain MRI 10/02/2021. Findings: Acute on chronic paranasal sinus disease again noted. The mastoid air cells are clear. Old lacunar infarct again noted within the right cerebellar hemisphere. The calvarium and skull base are intact. The ventricles and sulci are within normal limits. There is no mass, hematoma, midline shift, or acute infarct. Impression: 1. No acute intracranial abnormality. 2. Acute on chronic paranasal sinus disease again noted. ACT 112: Negative or not required by law. Electronically signed by: Kem Mendieta M.D. 10/02/2021 11:33 AM
--- NOTE | 2021-10-02 11:45 | Hospitalist Progress Note ---
Date of Service October 02, 2021 Assessment & Plan (1) TIA (transient ischemic attack): Plan: It appears that the patient had a 30-min long TIA episode yesterday localizing to the left brain. Work-up was negative including CTA head/neck, echo with bubble study, and MRI br ain. Tele also normal thus far. Asa/plavix for secondary prevention was advised by [facility] last evening. This am about 1100 he had a second event - will assume another TIA event - lasting about 30 minutes also. Repeat MRI brain w/ contrast was again negative. CT head negative for ICH. EEG negative for seizure activity. Lyme, sed rate, crp, prolactin, VBG, TSH - all normal/negative. Etiology of recurrent TIAs?? Or, is he having seizures? Other cause? Still suspect TIAs. Cont asa/plavix. Serial neuro exams and neuro checks. Cholesterol/LDL noted to be quite high - start high-intensity statin 80mg daily. 30-day event monitor post-d/c if nothing else is found while here. Consult [facility] neuro in am tomorrow. If patient has a lupus anticoagulant or APL antibody he may need anticoagulation. see below. (2) Cerebrovascular disease: Plan: OLD right sided cerebellar stroke seen on imaging. I discussed this finding with the patient & his . I explained that we cannot date old strokes; chronicity is uncertain. Prior to yesterday no old head imaging is available. (3) Prolonged PTT (partial thromboplastin time): Plan: Patient is not on heparin or any anticoagulation. PTT was 41 yesterday and 40 again today. Mixing study performed - initially corrected, then with time the PTT became prolonged once again. This could be due to a lupus anticoagulant or a factor inhibitor. I spoke with the on-call automatic lump making machine tender - advises lupus anticoagulant, antiphospholipid ab, and factor levels (8, 9, 11, 12). If patient has Lupus Anticoagulant or Antiphospholipid ab syndrome this could be the reason he is having TIAs. (4) Hyperlipidemia: Plan: very high total chol + LDL very low HDL in light of #1 and #2 --- start lipitor 80mg daily (5) Hyponatremia: Plan: Na 133 upon admission; 139 this am. Etiology? Mild volume contraction at presentation? (6) Severe persistent asthma: Plan: Follows with [facility]. Previously seen by Dr Arboleda with [facility] and Dr Flores [facility] Allergy. h/o severe asthma; now with ?ILD? Continue budesonide and Flonase twice daily. Continue Zyrtec and methylprednisolone daily. (7) GERD (gastroesophageal reflux disease): Plan: Continue PPI. (8) Tremor: Plan: Noted. Typically takes inderal prn. (9) Depression: Plan: Continue Zoloft 200 mg daily. (10) Arthritis: Plan: Hold NSAIDs in the setting of elevated aPTT and #1. (11) Sinus disease: Plan: 2nd to chronic allergic rhinitis? Patient does not endorse any acute sinusitis symptoms. Further, sed rate & crp wnl. Continue antihistamines, etc. Plan: in light of code purple/code stroke alert and management of such, complex care coordination with Marlene, updating , etc - critical care = 90 minutes today Admission and Anticipated Discharge Date Admission Date: October 01, 2021 Subjective overnight - telemetry was normal apparently ate a normal breakfast and saw PT/OT - did well with both about 11am a "Colten Ferro" was called by staff for aphasia and altered mental status upon arrival he was awake, able to state he was at [facility] (although speech was slow/slurred) and followed commands albeit with difficulty no obvious facial droop fingerstick blood sugar was upper 90s and vitals were normal staff report no obvious seizure or seizure like activity as I proceeded with my assessment he followed commands less and less it seemed as if he may have had mild left arm/weakness but this was not certain I asked staff to activate the code stroke alert pathway additional exam findings - no acute distress; neck - no JVD; heart - RRR, s1 s2; lungs - scant rales bases; abd - soft; ext - warm, no edema patient sent for STAT head CT, and following such he was transferred to room 102 in the ICU I reassessed him upon arrival from CT -- exam unchanged; still not following commands, global aphasia now present, but no focal motor deficits were obvious telestroke consult with [facility] was obtained - Dr Gomez did the consultation TPA NOT advised, especially since aPTT was 40 she advised repeat MRI brain w/ and w/o contrast along with EEG & hypercoagulable work-up about 1130am the patient began to follow commands and was speaking; speech was clear he was moving all 4 limbs EEG was subsequently completed following his repeat MRI brain; EEG neg for seizure focus prolactin level returned normal Lyme testing, sed rate and crp were all normal due to prolonged aPTT I performed a mixing study; there was early correction, but ultimately aPTT became delayed as time went on I spoke with on-call heme/onc who recommended Lupus Anticoagulant testing, APLA testing and factor testing for deficiencies pt's - Daisy ([phone]) - was at bedside early this afternoon extensive update given to her during this additional visit the patient was awake/alert explained concern for recurrent TIA also in differential - seizures vs migraines vs stroke "mimics" vs other explained that EEG did not show seizure focus and prolactin was normal pt does not have h/o migraines no infections and no lyme based on testing at one point asked for transfer to [facility] was concerned that we were not certain about his diagnosis and that she wanted neurology to see him gave reassurances regarding his testing, work-up, the telestroke visit with [facility] today, and that [facility] Neuro would see him in am with that said I also offered to honor her request for transfer she ultimately stated that they were ok with staying at [facility] Review of Systems Review of Systems: Unobtainable due to cognitive status Physical Exam Physical Exam: initial exam this am during code purple - gen - eyes open, awake, did talk albeit with expressive aphasia/slowed speech; no acute distress eyes - PERRL face - no obvious droop heart - RRR, s1 s2, no murmur lungs - fine b/l basilar rales, no increased work of breathing abd - soft NT ND BS+ ext - no edema neuro - no pronator drift initially; then, L handgrip and left hip flexion seemed weaker vs the right side repeat exam after the event resolved - gen - speech clear, following commands face - no droop neuro - strength 5/5 x 4 exts Results & Data Results & Data ([facility]) Vital Signs (Past 12 Hours) Vital Signs Temp Pulse Pulse Resp BP Pulse Ox 10/02/21 11:36 36.4 C L 62 16 127/80 94 10/02/21 11:11 97 H 18 153/97 H 96 10/02/21 08:00 36.5 C 67 16 123/85 93 10/02/21 07:49 56 L 10/02/21 03:40 36.6 C 63 20 120/75 94 10/02/21 01:38 66 Laboratory Results Laboratory Results - last 24 hr 10/02/21 10/02/21 10/02/21 06:38 06:38 06:38 WBC 3.87 L RBC 4.40 L Hgb 13.5 L Hct 38.5 L MCV 87.5 MCH 30.7 MCHC 35.1 RDW Std Deviation 45.8 RDW Coeff of Cheryl 14.3 Plt Count 147 MPV 9.4 Immature Gran % (Auto) 0.3 Neut % (Auto) 61.7 Lymph % (Auto) 21.4 [place] % (Auto) 8.3 Eos % (Auto) 8.0 Baso % (Auto) 0.3 Neut # (Auto) 2.39 Lymph # (Auto) 0.83 L [place] # (Auto) 0.32 Eos # (Auto) 0.31 Baso # (Auto) 0.01 Immature Gran # (Auto) 0.01 ESR PT INR APTT PTT Ratio PT Mix Interpretation PTT Mix Interpretation VBG pH VBG pCO2 VBG pO2 VBG HCO3 VBG O2 Saturation VBG Base Excess Barometric Pressure Sodium 139 Potassium 3.9 Chloride 104 Carbon Dioxide 30 Anion Gap 5 BUN 13 Creatinine 1.04 Est Cr Clr Drug Dosing 92.7 Est GFR ( Amer) 92.6 Est GFR (Non-Af Amer) 79.9 BUN/Creatinine Ratio 12.5 Glucose 96 POC Glucose Estimat Average Glucose Pending Hemoglobin A1c Pending Calcium 8.9 Ammonia C-Reactive Protein Triglycerides 380 H Cholesterol 235 H LDL Cholesterol, Calc 130 VLDL Cholesterol, Calc 76 H HDL Cholesterol 29 Cholesterol/HDL Ratio 8.1 H TSH Prolactin Lyme Disease IgG Ab Lyme Disease IgM Ab 10/02/21 10/02/21 10/02/21 09:40 11:13 12:21 WBC RBC Hgb Hct MCV MCH MCHC RDW Std Deviation RDW Coeff of Cheryl Plt Count MPV Immature Gran % (Auto) Neut % (Auto) Lymph % (Auto) [place] % (Auto) Eos % (Auto) Baso % (Auto) Neut # (Auto) Lymph # (Auto) [place] # (Auto) Eos # (Auto) Baso # (Auto) Immature Gran # (Auto) ESR 7 PT INR APTT 40.7 H PTT Ratio 1.5 PT Mix Interpretation PTT Mix Interpretation VBG pH VBG pCO2 VBG pO2 VBG HCO3 VBG O2 Saturation VBG Base Excess Barometric Pressure Sodium Potassium Chloride Carbon Dioxide Anion Gap BUN Creatinine Est Cr Clr Drug Dosing Est GFR ( Amer) Est GFR (Non-Af Amer) BUN/Creatinine Ratio Glucose POC Glucose 97 Estimat Average Glucose Hemoglobin A1c Calcium Ammonia C-Reactive Protein Triglycerides Cholesterol LDL Cholesterol, Calc VLDL Cholesterol, Calc HDL Cholesterol Cholesterol/HDL Ratio TSH Prolactin Lyme Disease IgG Ab Lyme Disease IgM Ab 10/02/21 10/02/21 10/02/21 12:21 12:21 12:21 WBC RBC Hgb Hct MCV MCH MCHC RDW Std Deviation RDW Coeff of Cheryl Plt Count MPV Immature Gran % (Auto) Neut % (Auto) Lymph % (Auto) [place] % (Auto) Eos % (Auto) Baso % (Auto) Neut # (Auto) Lymph # (Auto) [place] # (Auto) Eos # (Auto) Baso # (Auto) Immature Gran # (Auto) ESR PT INR APTT PTT Ratio PT Mix Interpretation PTT Mix Interpretation VBG pH VBG pCO2 VBG pO2 VBG HCO3 VBG O2 Saturation VBG Base Excess Barometric Pressure Sodium Potassium Chloride Carbon Dioxide Anion Gap BUN Creatinine Est Cr Clr Drug Dosing Est GFR ( Amer) Est GFR (Non-Af Amer) BUN/Creatinine Ratio Glucose POC Glucose Estimat Average Glucose Hemoglobin A1c Calcium Ammonia 44.0 C-Reactive Protein < 0.50 Triglycerides Cholesterol LDL Cholesterol, Calc VLDL Cholesterol, Calc HDL Cholesterol Cholesterol/HDL Ratio TSH Prolactin 7.01 Lyme Disease IgG Ab Lyme Disease IgM Ab 10/02/21 10/02/21 10/02/21 12:21 12:21 12:22 WBC RBC Hgb Hct MCV MCH MCHC RDW Std Deviation RDW Coeff of Cheryl Plt Count MPV Immature Gran % (Auto) Neut % (Auto) Lymph % (Auto) [place] % (Auto) Eos % (Auto) Baso % (Auto) Neut # (Auto) Lymph # (Auto) [place] # (Auto) Eos # (Auto) Baso # (Auto) Immature Gran # (Auto) ESR PT 11.2 INR 1.1 APTT 41.8 H PTT Ratio 1.5 PT Mix Interpretation Not Reportable PTT Mix Interpretation Factor Inhibitor VBG pH 7.40 VBG pCO2 48 VBG pO2 36 VBG HCO3 29 VBG O2 Saturation 72.0 VBG Base Excess 2.8 Barometric Pressure 728.1 Sodium Potassium Chloride Carbon Dioxide Anion Gap BUN Creatinine Est Cr Clr Drug Dosing Est GFR ( Amer) Est GFR (Non-Af Amer) BUN/Creatinine Ratio Glucose POC Glucose Estimat Average Glucose Hemoglobin A1c Calcium Ammonia C-Reactive Protein Triglycerides Cholesterol LDL Cholesterol, Calc VLDL Cholesterol, Calc HDL Cholesterol Cholesterol/HDL Ratio TSH Prolactin Lyme Disease IgG Ab Negative Lyme Disease IgM Ab Negative 10/02/21 12:22 WBC RBC Hgb Hct MCV MCH MCHC RDW Std Deviation RDW Coeff of Cheryl Plt Count MPV Immature Gran % (Auto) Neut % (Auto) Lymph % (Auto) [place] % (Auto) Eos % (Auto) Baso % (Auto) Neut # (Auto) Lymph # (Auto) [place] # (Auto) Eos # (Auto) Baso # (Auto) Immature Gran # (Auto) ESR PT INR APTT PTT Ratio PT Mix Interpretation PTT Mix Interpretation VBG pH VBG pCO2 VBG pO2 VBG HCO3 VBG O2 Saturation VBG Base Excess Barometric Pressure Sodium Potassium Chloride Carbon Dioxide Anion Gap BUN Creatinine Est Cr Clr Drug Dosing Est GFR ( Amer) Est GFR (Non-Af Amer) BUN/Creatinine Ratio Glucose POC Glucose Estimat Average Glucose Hemoglobin A1c Calcium Ammonia C-Reactive Protein Triglycerides Cholesterol LDL Cholesterol, Calc VLDL Cholesterol, Calc HDL Cholesterol Cholesterol/HDL Ratio TSH 2.493 Prolactin Lyme Disease IgG Ab Lyme Disease IgM Ab Diagnostic Findings Head CT 10/02/21 11:[address] DOSE: 729.78 mGycm HISTORY: recurrent expressive dysphasia, stroke alert TECHNIQUE: Multiaxial CT images of the head were performed without the use of intravenous contrast. Automated exposure control was utilized for this study. A dose lowering technique was utilized adhering to the principles of ALARA. Comparison: Head CT 10/01/2021 brain MRI 10/02/2021. Findings: Acute on chronic paranasal sinus disease again noted. The mastoid air cells are clear. Old lacunar infarct again noted within the right cerebellar hemisphere. The calvarium and skull base are intact. The ventricles and sulci are within normal limits. There is no mass, hematoma, midline shift, or acute infarct. Impression: 1. No acute intracranial abnormality. 2. Acute on chronic paranasal sinus disease again noted. ACT 112: Negative or not required by law. Electronically signed by: Kem Mendieta M.D. 10/02/2021 11:33 AM Brain MRI 10/02/21 12:18 Brain MRI WITH AND WITHOUT CONTRAST HISTORY: recurrent TIA event (global aphasia AM of 10/02) TECHNIQUE: Multiplanar multisequence MRI of the brain was performed both before and after the intravenous administration of contrast. COMPARISON STUDY: Brain MRI 10/02/2021. FINDINGS: There are no areas of restricted diffusion to suggest acute infarction. The midline structures are intact. Acute on chronic paranasal sinus disease again noted.. The mastoid air cells are clear. The ventricles and sulci are within normal limits for age. There is no mass, hematoma, midline shift. The major vascular flow-voids at the skull base are well maintained. Postcontrast sequences show no areas of abnormal enhancement. There is an old right cerebellar lacunar infarct again noted. IMPRESSION: No significant change compared to the prior study. No acute intracranial abnormality. ACT 112: Negative or not required by law. Electronically signed by: Kem Mendieta M.D. 10/02/2021 1:45 PM PG Care Time/CCT Total # of Minutes Spent Total Time Spent with Patient: Total time spent is greater than 50% in coordination of care (as documented) at patient's floor/unit and/or counseling patient: Prolonged Care Time 90 Critical Care Time: Yes Total Critical Care Time: 90 Coding Level of Care Code None Diagnoses TIA (transient ischemic attack) G45.9 Hyponatremia E87.1 Severe persistent asthma J45.50 GERD (gastroesophageal reflux disease) K21.9 Tremor R25.1 Depression F32.A Arthritis M19.90 Sinus disease J34.9 Prolonged PTT (partial thromboplastin time) R79.1 Hyperlipidemia E78.5 Cerebrovascular disease I67.9 Additional Codes Critical Care Time - Critical Care Time: Yes ([id number])
[2021-10-02 12:34] LABS: Base Excess VBG 2.8 mEq/L; pH VBG 7.4 (7.36-7.41)
[2021-10-02 12:46] LABS: INR 1.1 (0.9-1.1); Partial Thromboplastin Ratio 1.5; Partial Thromboplastin Time 41.8 Seconds (21.0-31.0); Prothrombin Time 11.2 Seconds (9.0-12.0)
[2021-10-02] MEDS ORDERED: GADOBUTROL 10ML VIAL IV ONE (13:14)
--- NOTE | 2021-10-02 13:48 | Magnetic Resonance Report ---
Brain MRI WITH AND WITHOUT CONTRAST HISTORY: recurrent TIA event (global aphasia AM of 10/02) TECHNIQUE: Multiplanar multisequence MRI of the brain was performed both before and after the intrave nous administration of contrast. COMPARISON STUDY: Brain MRI 10/02/2021. FINDINGS: There are no areas of restricted diffusion to suggest acute infarction. The midline structu res are intact. Acute on chronic paranasal sinus disease again noted.. The mastoid air cells are jose alejandro r. The ventricles and sulci are within normal limits for age. There is no mass, hematoma, midline ajay ft. The major vascular flow-voids at the skull base are well maintained. Postcontrast sequences show no areas of abnormal enhancement. There is an old right cerebellar lacunar infarct again noted. IMPRESSION: No significant change compared to the prior study. No acute intracranial abnormality. ACT 112: Negative or not required by law. Electronically signed by: Kem Mendieta M.D. 10/02/2021 1:45 PM
[2021-10-02 13:52] LABS: Lyme Ab IgG w/WB Rflx Negative (Negative); Lyme Ab IgM w/WB Rflx Negative (Negative)
--- NOTE | 2021-10-02 15:37 | Electroencephalogram ---
EEG Procedure Note Date of Service October 02, 2021 Start / End Times Start Time: 13:37 End Time: 13:[address] Myles Núñez History A 55 year old male with 2 episodes of staring spells. EEG performed for evaluation of epileptiform activity. Home Medication List Medication Instructions Recorded Confirmed Type omeprazole magnesium 20 mg 20 mg PO QAM 11/05/19 10/01/21 History tablet,delayed release diclofenac potassium 50 mg tablet 100 mg PO TID 12/24/20 10/01/21 History sertraline 100 mg tablet 200 mg PO DAILY 12/24/20 10/01/21 History budesonide 0.5 mg/2 mL suspension 0.5 mg INHALATION BID PRN 10/01/21 10/01/21 History for nebulization cetirizine 10 mg tablet 10 mg PO DAILY 10/01/21 10/01/21 History fluticasone propionate 50 1 - 2 spray INTRANASAL BID PRN 10/01/21 10/01/21 History mcg/actuation nasal spray,suspension ibuprofen 200 mg tablet 400 - 600 mg PO DIRECTED PRN 10/01/21 10/01/21 History methylprednisolone 4 mg tablet 0 mg PO DAILY 10/01/21 10/01/21 History propranolol 20 mg tablet 20 mg PO TID PRN 10/01/21 10/01/21 History Inpatient Medication List Aspirin (Aspirin 81 Mg Ectab) 81 mg PO DAILY [facility] Stop: 11/01/21 08:59 Last Admin: 10/02/21 09:06 Dose: 81 mg Documented by: [id number] Cetirizine HCl (Cetirizine Hcl 10 Mg Tablet) 10 mg PO DAILY [facility] Stop: 11/01/21 08:59 Last Admin: 10/02/21 08:12 Dose: 10 mg Documented by: [id number] Clopidogrel Bisulfate (Cl[facility]ogrel Bisulfate 75 Mg Tab) [facility] [place]: 11/01/21 08:59 Last Admin: 10/02/21 08:12 Dose: 75 mg Documented by: [id number] Methylprednisolone (Methylprednisolone 4 Mg Tab) 16 mg PO DAILY [facility] Stop: 10/06/21 08:59 Last Admin: 10/02/21 08:12 Dose: 16 mg Documented by: [id number] Pantoprazole Sodium (Pantoprazole 40 Mg Tab) [facility] [place] Stop: 11/01/21 08:59 Last Admin: 10/02/21 08:12 Dose: 40 mg Documented by: [id number] Sertraline HCl (Sertraline Hcl 100 Mg Tablet) 200 mg PO DAILY [facility] Stop: 11/01/21 08:59 Last Admin: 10/02/21 08:12 Dose: 200 mg Documented by: [id number] Discontinued Medications Aspirin (Aspirin Chew 324 Mg) 81 mg PO NOW STA Stop: 10/01/21 17:46 Last Admin: 10/01/21 17:57 Dose: 81 mg Documented by: [id number] Clopidogrel Bisulfate (Clopidogrel Bisulfate 300 Mg Tab) 300 mg PO NOW STA Stop: 10/01/21 17:46 Last Admin: 10/01/21 17:57 Dose: 300 mg Documented by: [id number] Diclofenac Sodium (Diclofenac Sodium 25 Mg Tabdr) 100 mg PO TID [facility] Stop: 10/31/21 20:59 Last Admin: 10/01/21 21:46 Dose: 100 mg Documented by: [id number] Gadobutrol (Gadobutrol 10ml Vial) 9 ml IV ONCE ONE Stop: 10/02/21 13:15 Last Admin: 10/02/21 13:15 Dose: 9 ml Documented by: [id number] Ioversol (Optiray 320 125ml) 120 ml IV ONCE ONE Stop: 10/01/21 16:10 Last Admin: 10/01/21 16:14 Dose: 120 ml Documented by: [id number] Description This is a 21 electrode EEG with a single channel dedicated to limited EKG. The electrodes were placed in accordance with the International 10-20 system. REPORT: At the onset of the EEG the patient is in an altered mental state.. The background is symmetric. The posterior dominant rhythm is not well seen with a loss of the normal anterior to posterior gradient. The background predominantly consist of 6-7 Hz theta activity with intermixed generalized 2-3 Hz delta activity. Photic stimulation does not inducte any additional abnormalities. No stage II sleep transients are seen. Interpretation This is an abnormal routine EEG due to generalized background slowing suggestive of a non specific encephalopathy. There is no evidence of focal slowing or epileptiform activity.
[2021-10-03 05:31] LABS: Basophils # (auto) 0.01 K/uL (0-0.2); Basophils % (auto) 0.2 %; Eosinophils # (auto) 0.23 K/uL (0-0.5); Eosinophils % (auto) 4.4 %; Hematocrit (blood only) 40.1 % (42-52); Hemoglobin 14.3 g/dL (14.0-18.0); Immature Granulocytes # (auto) 0.01 K/uL (0.00-0.02); Immature Granulocytes % (auto) 0.2 %; Lymphocytes # (auto) 1.08 K/uL (1.2-3.4); Lymphocytes % (auto) 20.8 %; Mean Corpuscular Hemoglobin 31.2 pg (25-34); Mean Corpuscular Hgb Conc 35.7 g/dL (32-36); Mean Corpuscular Volume 87.6 fL (80-100); Mean Platelet Volume 9.2 fL (7.4-10.4); Monocytes # (auto) 0.37 K/uL (0.11-0.59); Monocytes % (auto) 7.1 %; Neutrophils # (auto) 3.48 K/uL (1.4-6.5); Neutrophils % (auto) 67.3 %; Platelet Count 162 K/uL (130-400); RDW Coefficient of Variation 14.6 % (11.5-14.5); RDW Standard Deviation 46.6 fL (36.4-46.3); Red Blood Count 4.58 M/uL (4.7-6.1); White Blood Count 5.18 K/uL (4.8-10.8)
[2021-10-03 05:58] LABS: BUN Creatinine Ratio 16.1 (10-20); Calcium 9.3 mg/dl (8.5-10.1); Creatinine Clr Calc Pharmacy 110.8 ml/min; Est GFR (African American) 111.8 ml/min; Est GFR (Non-African American) 96.5 ml/min; Potassium 3.9 mmol/L (3.5-5.1)
[2021-10-03 07:34] LABS: Estimated Average Glucose 97 mg/dl
[2021-10-03] MEDS: CETIRIZINE HCL 10 MG TABLET PO SCH (08:22)
[2021-10-03] MEDS: ASPIRIN 81 MG ECTAB PO SCH (08:22)
[2021-10-03] MEDS: CLOPIDOGREL BISULFATE 75 MG TAB PO SCH (08:22)
[2021-10-03] MEDS: PANTOprazole 40 MG TAB PO SCH (08:23)
[2021-10-03] MEDS: SERTRALINE HCL 100 MG TABLET PO SCH (08:23)
[2021-10-03] MEDS: methylPREDNISolone 4 MG TAB PO SCH (08:23)
[2021-10-03] MEDS ORDERED: ATORVASTATIN 40 MG TAB PO SCH (09:00)
--- NOTE | 2021-10-03 09:31 | Neurology Consultation ---
Date of Consultation October 03, 2021 Assessment & Plan (1) TIA (transient ischemic attack): Probable recurrent TIA affecting different vascular territories. Suspect recurrent thromboembolism is underlying etiology. Echocardiography and CT angiography are unremarkable. May have underlying coagulopathy, work-up ongoing. No known prior history of DVT or PE. Does have a chronic right cerebellar infarct on neuro imaging, clinically asymptomatic, however. Agree with aspirin 81 mg/day and Plavix 75 mg/day for the time being. Would continue with dual antiplatelet therapy for 3 weeks, then plan to switch to monotherapy, aspirin 81 mg/day. Follow-up with results of hypercoagulable panel which may impact this decision. Agree with high intensity atorvastatin. If patient has additional episodes would consider transesophageal echocardiography as well as repeat EEG. Would not start an anticonvulsant at this point time. Patient does not have signs or symptoms suggestive of meningoencephalitis, would not recommend lumbar puncture at this point in time. No prior history of migraine, I do not think these episodes are consistent with complicated or hemiplegic migraine. Conversion disorder or functional neurological disorder not strongly suspected at this time. Patient is currently neurologically intact, without evidence of aphasia, hemiplegia, or other neurologic deficit. Continue clinical observation and medical management. If he remains clinically stable should be appropriate for discharge but would recommend prolonged cardiac monitoring. Again, follow-up with results of hypercoagulable panel as above. History of Present Illness Reason for Consultation: recurrent TIA Requesting Physician: Myles Matthews MD Attending Physician: Myles Matthews History of Present Illness The patient is a 55-year-old male who presented to the emergency department on October 01, 2021 with a chief complaint of right upper extremity weakness and right facial droop that began acutely at home. Recalls having some associated sensory disturbance to the right upper limb as well. No headache, dizziness, or alteration in level of alertness or awareness. His symptoms resolved by the time he was assessed in the emergency department. A CT of the head including CT angiogram of the head and neck were unremarkable. He did present as a stroke alert although given symptomatic resolution was not considered an appropriate candidate for thrombolytic therapy. He was given both aspirin and Plavix and [facility]. Past medical history notable for severe persistent asthma, GERD, tremor, depression. He was not taking antiplatelet therapy, anticoagulants, or a statin prior to this hospitalization. MRI was unremarkable, no evidence for acute or subacute infarct. There was evidence of a chronic lacunar infarct within the right cerebellar hemisphere. The patient apparently had another strokelike episode yesterday morning, at around 11 AM. Patient exhibited some slowed slurred speech at that time, difficulty following commands, no obvious facial droop. Blood sugar and vitals were normal at that time. No obvious seizure activity. There may have been some mild left arm weakness at that time although examinatio n was inconsistent. Stat CT of the head was unremarkable. Above brain MRI was unremarkable as well, completed after this second episode. Patient also had another brain MRI completed at 5:45 last night that was negative for acute or subacute infarct. Patient's echocardiography was unremarkable as well, no cardioembolic source identified. Patient denies any history of stroke or TIA in spite of the observation of the chronic right cerebellar infarct on imaging. He denies a history of migraine or seizure disorder. Patient did have an EEG completed yesterday afternoon as well. The study revealed generalized background slowing suggestive of a nonspecific encephalopathy. No focal slowing or epileptiform activity. A hypercoagulable panel has been ordered. Allergies Allergy/AdvReac Type Severity Reaction Status Date / Time oxycodone Allergy Intermediate Vomiting Verified 10/01/21 16:44 hydrocodone AdvReac Intermediate Vomiting Verified 10/01/21 16:44 Home Medications Medication Instructions Recorded Confirmed Type omeprazole magnesium 20 mg 20 mg PO QAM 11/05/19 10/01/21 History tablet,delayed release diclofenac potassium 50 mg tablet 100 mg PO TID 12/24/20 10/01/21 History sertraline 100 mg tablet 200 mg PO DAILY 12/24/20 10/01/21 History budesonide 0.5 mg/2 mL suspension 0.5 mg INHALATION BID PRN 10/01/21 10/01/21 History for nebulization cetirizine 10 mg tablet 10 mg PO DAILY 10/01/21 10/01/21 History fluticasone propionate 50 1 - 2 spray INTRANASAL BID PRN 10/01/21 10/01/21 History mcg/actuation nasal spray,suspension ibuprofen 200 mg tablet 400 - 600 mg PO DIRECTED PRN 10/01/21 10/01/21 History methylprednisolone 4 mg tablet 0 mg PO DAILY 10/01/21 10/01/21 History propranolol 20 mg tablet 20 mg PO TID PRN 10/01/21 10/01/21 History Patient History Medical History Arthritis Depression GERD (gastroesophageal reflux disease) Severe persistent asthma Tremor Surgical History History of appendectomy History of carpal tunnel surgery History of cholecystectomy Family History Other Cancer Diabetes Denies family history of Heart disease Lung disease Asthma Social History (Updated 10/01/21 @ 19:14 by Reinaldo Kwon MD) Smoking Status: Never smoker Hx Alcohol Use: No Hx Substance Use: No Current Living Situation: Spouse Feels Safe at Home: Yes Safety Concerns: Feels Safe At This Time Assistive Devices: None Review of Systems Constitutional: no fever and no chills Eyes: no blind spots and no diplopia Ear, Nose, Mouth, Throat: no ear pain and no hearing loss Respiratory: no cough and no dyspnea Cardiovascular: no chest pain and no palpitations Gastrointestinal: no constipation and no diarrhea/loose stools Genitourinary: no urinary incontinence or no urinary urgency Musculoskeletal: no muscle weakness and no muscle atrophy Integumentary: no rash and no lesions Neurologic: as per Subjective / HPI Psychiatric: no behavioral changes, no depression, no abnormal sleep pattern and no anxiety Hematologic / Lymphatic: no easy bruising and no lymphadenopathy Exam (Neuro) Constitutional: well developed and well nourished; no acute distress Eyes: normal visual grewal by confrontation, PERRL, normal accommodation and EOM intact bilaterally; no fundoscopic abnormality, no nystagmus and no papilledema Cardiovascular: Vessels: normal carotid upstroke; no carotid bruit Neurologic: Oriented to:: Person, Place and Time Memory: Short Term Intact and Remote Intact Attention: Span Intact and Concentration Intact Language: Naming Objects and Repeating Phrases Speech Fluency: negative Dysarthria Speech Aphasia: negative Aphasia Fund of Knowledge: Current Events, Past History and Vocabulary Cranial Nerves: Normal II (Visual grewal full to confrontation, visual acuity normal), III, IV, (Pupils equal round reactive to light and accommodation, eye movements normal), V (Facial sensation intact), VII (There is no facial droop or weakness), VIII (Hearing intact), IX, X (Palate elevates to midline), XI (Shoulder shrug intact) and XII (Tongue protrudes to midline) Motor Strength: Normal Lower Extremities and Normal Upper Extremities; negative Pronator Drift Motor Tone: Normal Lower Extremities and Normal Upper Extremities Muscle Bulk/Involuntary Movements: No Involuntary Movements; negative Muscle Atrophy Sensation: Light Touch Intact, Pain/Temperature Intact, Vibration Intact and Proprioception Intact Coordination: Normal; negative Limited Balance, Dysdiadochokinesia, Finger-Nose Abnormal or Heel-Guevara Abnormal Deep Tendon Reflexes: Rt Triceps: 2+, Lt Triceps: 2+, Rt Biceps: 2+, Lt Biceps: 2+, Rt Brachioradialis: 2+, Lt Brachioradialis: 2+, Rt Patellar: 2+, Lt Patellar: 2+, Rt Ankle: 2+ and Lt Ankle: 2+ Special Tests: negative Babinski Present Gait: Normal Station and Gait Results & Data ([facility]) Vital Signs (Past 12 Hours) Vital Signs Temp Pulse Resp BP Pulse Ox 10/03/21 04:30 36.5 C 65 16 111/77 94 10/02/21 23:25 36.8 C 84 19 110/88 95 Coding Level of Care Code 88254 Initial Inpt Care Lvl 3 Diagnoses TIA (transient ischemic attack) G45.9
--- NOTE | 2021-10-03 14:12 | Discharge Summary ---
Date of Service date of admission - October 01, 2021 date of discharge - October 03, 2021 Admission HPI Per Admitting Provider Patient is a 55-year-old male with past medical history of interstitial lung disease, asthma, depression, tremor, GERD, arthritis who presents today with right upper extremity numbness, right facial droop, and confusion for 1 hour patient was outside with his when he complained to her that his right arm was numb and weak. At this time she noticed right-sided facial droop. She immediately called EMS for transportation to ED for evaluation. During this, he had intermittent episodes of confusion, there were periods of time he was unable to comprehend questions being asked to him, and other times when he could comprehend questions but was unable to get his words out to respond appropriately. This is all resolved by the time they arrived to the ED. He d enies headache, nausea, vomiting, chest pain, palpitations, shortness of breath, dizziness, visual changes with this. He has not experienced something like this before. Did have one episode of emesis during CT, otherwise feels he is back to his baseline. In ED, vital signs within normal limits and stable. Labs largely nonsignificant, sodium 133. Hemoglobin 13.9, stable. Head CT, as well as head and neck CTA all unrevealing. Telestroke service consulted, recommend aspirin with clopidogrel loading dose. Hospitalist service consulted for further evaluation and admission. Principal Diagnosis 1. TIA x 2, etiology uncertain 2. prolonged aPTT - abnormal mixing study suggesting the presence of an inhibitor - follow-up needed 3. steroid-dependent chronic lung disease Discharge Exam gen - awake, alert, oriented x 3 eyes - PERRL face - no droop neck - no JVD heart - RRR, s1 s2, no murmur lungs - minima/fine b/l basilar rales, no increased work of breathing abd - soft NT ND BS+ ext - no edema, pulses 2+ b/l neuro - no pronator drift, speech clear and fluent, strength 5/5 x 4 exts, no facial droop Discharge Data Allergies Allergy/AdvReac Type Severity Reaction Status Date / Time oxycodone Allergy Intermediate Vomiting Verified 10/01/21 16:44 hydrocodone AdvReac Intermediate Vomiting Verified 10/01/21 16:44 [facility]ations [facility], OT, Speech therapy Procedures Performed 1. EEG - negative for seizure activity 2. Echocardiogram - * EF 55-60% * dilated right ventricle but normal RV function * grade 1 diastolic dysfunction * no PFO (no right to left shunt) 3. Mixing study (indication - prolonged aPTT) Ordered Studies Head CT 10/01/21 16:01 CT angio head w con, CT head/brain wo con, CT angio neck with con CLINICAL HISTORY: Stroke Like Symptoms. Right facial droop, slurred speech TECHNIQUE: Contiguous axial CT images of the head were acquired from the base of the skull to the vertex without intravenous contrast administration. CT angiography of the head and neck was performed following intravenous administration of iodinated contrast. Coronal and sagittal MIPS were obtained from the axial data set and were submitted for review. Automated dose lowering techniques and/or adjustment according to patient size were utilized for this examination. All measurements were calculated based on NASCET criteria. CT DOSE: 1217.16 mGy.cm Comparison: None available at the time of this dictation. FINDINGS: CT head: There is no acute intracranial hemorrhage or evidence of acute territorial infarction. No shift of the midline structures, mass effect, or extra-axial abnormalities are shown. Soft tissue thickening is seen in the ethmoid air cells and bilateral maxillary sinuses. Lungs and soft tissues are unremarkable. CTA Neck: A 3 vessel aortic arch is shown. There is no significant atherosclerotic plaque in the aortic arch or the origins of the innominate, left common carotid, and left subclavian arteries. The common carotid, external carotid, cervical segments of the internal carotid arteries, and the cervical segments of the vertebral arteries are patent without hemodynamically significant stenosis. The left vertebral artery is dominant. CTA Head: The anterior and posterior cerebral circulations are patent. No hemodynamically significant stenosis, aneurysm, dissection, or arteriovenous malformation is shown. Atherosclerotic disease is noted. IMPRESSION: 1. No acute intracranial hemorrhage, evidence of acute territorial infarction, or other acute intracranial disease process. 2. No occlusion, hemodynamically significant stenosis, aneurysm, dissection, or arteriovenous malformation in the major intracranial arteries. 3. No occlusion, hemodynamically significant stenosis, or dissection in the major cervical arteries. Assessment of stenosis of the internal carotid arteries is based on NASCET criteria. ACT 112: Negative or not required by law. Electronically signed by: Sebas Wasserman M.D. 10/01/2021 4:47 PM Head CTA 10/01/21 16:01 CT angio head w con, CT head/brain wo con, CT angio neck with con CLINICAL HISTORY: Stroke Like Symptoms. Right facial droop, slurred speech TECHNIQUE: Contiguous axial CT images of the head were acquired from the base of the skull to the vertex without intravenous contrast administration. CT angiography of the head and neck was performed following intravenous administration of iodinated contrast. Coronal and sagittal MIPS were obtained from the axial data set and were submitted for review. Automated dose lowering techniques and/or adjustment according to patient size were utilized for this examination. All measurements were calculated based on NASCET criteria. CT DOSE: 1217.16 mGy.cm Comparison: None available at the time of this dictation. FINDINGS: CT head: There is no acute intracranial hemorrhage or evidence of acute territorial infarction. No shift of the midline structures, mass effect, or extra-axial abnormalities are shown. Soft tissue thickening is seen in the ethmoid air cells and bilateral maxillary sinuses. Lungs and soft tissues are unremarkable. CTA Neck: A 3 vessel aortic arch is shown. There is no significant atherosclerotic plaque in the aortic arch or the origins of the innominate, left common carotid, and left subclavian arteries. The common carotid, external carotid, cervical segments of the internal carotid arteries, and the cervical segments of the vertebral arteries are patent without hemodynamically significant stenosis. The left vertebral artery is dominant. CTA Head: The anterior and posterior cerebral circulations are patent. No hemodynamically significant stenosis, aneurysm, dissection, or arteriovenous malformation is shown. Atherosclerotic disease is noted. IMPRESSION: 1. No acute intracranial hemorrhage, evidence of acute territorial infarction, or other acute intracranial disease process. 2. No occlusion, hemodynamically significant stenosis, aneurysm, dissection, or arteriovenous malformation in the major intracranial arteries. 3. No occlusion, hemodynamically significant stenosis, or dissection in the major cervical arteries. Assessment of stenosis of the internal carotid arteries is based on NASCET criteria. ACT 112: Negative or not required by law. Electronically signed by: Sebas Wasserman M.D. 10/01/2021 4:47 PM Neck CTA 10/01/21 16:01 CT angio head w con, CT head/brain wo con, CT angio neck with con CLINICAL HISTORY: Stroke Like Symptoms. Right facial droop, slurred speech TECHNIQUE: Contiguous axial CT images of the head were acquired from the base of the skull to the vertex without intravenous contrast administration. CT angiography of the head and neck was performed following intravenous adm inistration of iodinated contrast. Coronal and sagittal MIPS were obtained from the axial data set and were submitted for review. Automated dose lowering techniques and/or adjustment according to patient size were utilized for this examination. All measurements were calculated based on NASCET criteria. CT DOSE: 1217.16 mGy.cm Comparison: None available at the time of this dictation. FINDINGS: CT head: There is no acute intracranial hemorrhage or evidence of acute territorial infarction. No shift of the midline structures, mass effect, or extra-axial abnormalities are shown. Soft tissue thickening is seen in the ethmoid air cells and bilateral maxillary sinuses. Lungs and soft tissues are unremarkable. CTA Neck: A 3 vessel aortic arch is shown. There is no significant ather osclerotic plaque in the aortic arch or the origins of the innominate, left common carotid, and left subclavian arteries. The common carotid, external carotid, cervical segments of the internal carotid arteries, and the cervical segments of the vertebral arteries are patent without hemodynamically significant stenosis. The left vertebral artery is dominant. CTA Head: The anterior and posterior cerebral circulations are patent. No hemodynamically significant stenosis, aneurysm, dissection, or arteriovenous malformation is shown. Atherosclerotic disease is noted. IMPRESSION: 1. No acute intracranial hemorrhage, evidence of acute territorial infarction, or other acute intracranial disease process. 2. No occlusion, hemodynamically significant stenosis, aneurysm, dissection, or arteriovenous malformation in the major intracranial arteries. 3. No occlusion, hemodynamically significant stenosis, or dissection in the major cervical arteries. Assessment of stenosis of the internal carotid arteries is based on NASCET criteria. ACT 112: Negative or not required by law. Electronically signed by: Sebas Wasserman M.D. 10/01/2021 4:[address] 10/02/21 11:[address] DOSE: 729.78 mGycm HISTORY: recurrent expressive dysphasia, stroke alert TECHNIQUE: Multiaxial CT images of the head were performed without the use of in travenous contrast. Automated exposure control was utilized for this study. A dose lowering technique was utilized adhering to the principles of ALARA. Comparison: Head CT 10/01/2021 brain MRI 10/02/2021. Findings: Acute on chronic paranasal sinus disease again noted. The mastoid air cells are clear. Old lacunar infarct again noted within the right cerebellar hemisphere. The calvarium and skull base are intact. The ventricles and sulci are within normal limits. There is no mass, hematoma, midline shift, or acute infarct. Impression: 1. No acute intracranial abnormality. 2. Acute on chronic paranasal sinus disease again noted. ACT 112: Negative or not required by law. Electronically signed by: Kem Mendieta M.D. 10/02/2021 11:33 AM Brain MRI 10/02/21 12:18 Brain MRI WITH AND WITHOUT CONTRAST HISTORY: recurrent TIA event (global aphasia AM of 10/02) TECHNIQUE: Multiplanar multisequence MRI of the brain was performed both before and after the intravenous administration of contrast. COMPARISON STUDY: Brain MRI 10/02/2021. FINDINGS: There are no areas of restricted diffusion to suggest acute infarction. The midline structures are intact. Acute on chronic paranasal sinus disease again noted.. The mastoid air cells are clear. The ventricles and sulci are within normal limits for age. There is no mass, hematoma, midline shift. The major vascular flow-voids at the skull base are well maintained. Postcontrast sequences show no areas of abnormal enhancement. There is an old right cerebellar lacunar infarct again noted. IMPRESSION: No significant change compared to the prior study. No acute intracranial abnormality. ACT 112: Negative or not required by law. Electronically signed by: Kem Mendieta M.D. 10/02/2021 1:45 PM Brain MRI 10/02/21 17:45 Brain MRI WITHOUT CONTRAST HISTORY: Right-sided facial weakness and right upper extremity weakness. TECHNIQUE: Multiplanar multisequence MRI of the brain was performed without the use of contrast. COMPARISON STUDY: Head CT 10/01/2021. FINDINGS: There are no areas of restricted diffusion to suggest acute infarction. The midline structures are intact. Near-complete opacification of the ethmoid air cells with mild to moderate mucosal thickening within the maxillary sinuses. There are trace fluid levels within the paranasal sinuses. Old punctate lacunar infarct within the right cerebellar hemisphere. The mastoid air cells are clear. The ventricles and sulci are within normal limits for age. There is no mass, hematoma, midline shift. The major vascular flow-voids at the skull base are well maintained. IMPRESSION: No acute intracranial abnormality. Acute on chronic paranasal sinus disease. ACT 112: Negative or not required by law. Electronically signed by: Kem Mendieta M.D. 10/02/2021 7:37 AM Cervical Spine X-Ray 10/03/21 15:43 CERVICAL SPINE 4 VIEWS CLINICAL HISTORY: Atraumatic posterior neck pain. FINDINGS: AP, lateral, odontoid, and swimmer's views of the thoracic spine are compared to a study dated 09/21/2009. The skeletal structures are well mineralized. There is no radiographic evidence of acute fracture or subluxation involving the cervical spine. The odontoid process and lateral masses appear intact as seen on the open-mouth view. The jt antodental articulation is maintained. Vertebral body height and alignment are maintained throughout the cervical spine. C7 is only seen on the swimmer's view. There is straightening of the cervical lordosis. Small anterior osteophytes are seen throughout. The spinolaminar line is maintained. The spinous processes appear intact. There is only mild disc space narrowing. Posterior disc osteophyte complexes at C4-C5 and C5-C6 may contribute to mild acquired compromise of the central canal. There is mild multilevel facet arthropathy seen on the frontal view. The prevertebral soft tissues are within normal limits. Apical lung parenchyma is clear as visualized. IMPRESSION: 1. No acute bony abnormality is seen involving the cervical spine. 2. Mild spondylotic change as above. Dictated: 10/03/2021 4:00 PM Transcribed: 10/03/2021 4:09 PM [facility] [id number] [facility] Electronically signed by: Gerson Amro M.D. 10/03/2021 4:09 PM Hospital Course (1) TIA (transient ischemic attack): The patient had a 30-minute long TIA episode on the day of admission localizing to the left brain. Initial work-up was negative including CT head, CTA head/neck, echo with bubble study, and MRI brain (MRI showed an old cerebellar stroke but otherwise no acute findings). [place] Telestroke consultation at time of admission advised against lytic therapy. They did recommended Asa/plavix for secondary prevention. On the AM of 10/02/21, about 1100, he had a second TIA event also lasting about 30 minutes. Symptoms included confusion and global aphasia. Repeat MRI brain w/ contrast obtained following the second TIA event was again negative for acute stroke. CT head negative for ICH. EEG negative for seizure activity. Prolactin level was normal. Lyme screen, sed rate, crp, VBG, TSH - all normal/negative. He had a 2nd [facility] Telestroke consultation on 10/02/21 and asa/plavix were recommended along with a hypercoagulable work-up (Factor V Leiden mutation, prothrombin gene mutation, etc). From 10/02/21 until discharge he had no further events and neurological exam remained normal. Dr Rm Pepe saw Mr Bailey on 10/03/21 and, like [facility], advised a combination of aspirin with plavix. Dr Pepe felt both of his events were indeed TIAs. The plavix will be taken for 21 days then can be stopped. The aspirin should be taken indefinitely. The patient was started on high-intensity statin with lipitor 40mg daily. With respect to his prolonged aPTT -- this is concerning for the presence of Lupus anticoagulant or APL antibody. See #3 below. If indeed the patient has a Lupus anticoagulant the patient may need his asa/plavix changed to anticoagulation. Finally, we advised a 30-day event monitor to rule out PAF. Telemetry during his stay was normal. Follow-up with [facility] advised within 3-4 weeks of discharge. (2) Cerebrovascular disease: OLD right sided cerebellar stroke seen on imaging. I discussed this finding with the patient & his . Chronicity is uncertain. He has no prior head imaging study to compare. (3) Prolonged PTT (partial thromboplastin time): Patient was not on heparin or any anticoagulation at the time of his prolonged PTT values. PTT was 41 seconds and 40 on repeat. Mixing study performed - initially corrected, then with time the PTT became prolonged once again. This could be due to a Lupus anticoagulant or a factor inhibitor. Lupus anticoagulant, antiphospholipid ab's, and factor levels (8, 9, 11, 12) were dispatched in response to this. If patient has Lupus Anticoagulant or Antiphospholipid ab syndrome this could be the reason he is having TIAs. This would potentially be an indication for chronic anticoagulation. He will need follow-up with hematology shortly after discharge if his blood work shows the presence of Lupus anticoagulant or other condition. (4) Hyperlipidemia: total cholesterol = 235 LDL = 130 HDL = 29 triglycerides = 380 Started on lipitor 40mg daily. (5) Hyponatremia: Na 133 upon admission; 139 upon recheck. (6) Severe persistent asthma: Follows [facility]. Previously seen by Dr Arboleda with [facility] and Dr Flores with [facility] Allergy. h/o severe asthma; now with ?ILD? Continue budesonide and Flonase twice daily. Continue Zyrtec and methylprednisolone 16mg daily. (7) GERD (gastroesophageal reflux disease): In light of aspirin, plavix and chronic methylprednisolone therapy I recommended we stop his omeprazole 20mg daily and change to pantoprazole 40mg daily for GI prophylaxis. (8) Tremor: Inderal prn. (9) Depression: Continue Zoloft 200 mg daily. (10) Arthritis: Hold NSAIDs in the setting of elevated aPTT and #1. Cont his chronic steroid therapy. (11) Sinus disease: 2nd to chronic allergic rhinitis? Patient did not endorse any acute sinusitis symptoms while hospitalized. Further, sed rate & crp wnl. Continue antihistamines, etc. Just prior to discharge the patient complained of mild posterior neck pain. This has been a chronic issue for him. Cervical spine x-rays showed DJD. Recommended tylenol prn. Total Time Total Time Spent Total Time Spent (In Minutes): 60 Discharge Plan Discharge Items Patient Disposition: Home - Self-Care Reason For Visit: TIA Discharge Diagnosis: 1. TIA (Transient Ischemic Attack) x 2 2. OLD right sided cerebellar stroke 3. Prolonged PTT - work-up in progress for a blood clotting disorder; follow-up needed 4. high cholesterol Activity: As commented below Activity Comment: light activities until you see your family doctor Sexual Activity: Wait until after follow-up appointment Exercise/Sports: Wait until after follow-up appointment Driving/Machine Use: NO DRIVING UNTIL CLEARED BY DR KERR Non-emergency contact: Primary Care Provider, Specialist and Neurologist Call non-emergency contact if: you have any medication questions and your symptoms worsen Follow-up/Referrals: Rm Pepe MD [Physician] - 10/28/21 8:30 am (3-4 weeks; dx - TIA (or one of his APPs can see him) October 28 @ 0830 with Physican Assist.) Song Kerr MD [Primary Care Provider] - (1 week Office aware of appt needed. Will call you with date/time.) Dayana Jones MD [Physician] - (first available (or one of Dr Jones's APPs can see him); dx - prolonged PTT, concern for inhibitor We will try and make your appt tomorrow and call you. If you do not hear from us by 5 pm, please call Dr Jones's office) Diet: Heart Healthy Addtl Attending Provider Instructions: Mr Bailey, You were hospitalized for an episode of right sided neurological symptoms including drooping of the right face and right arm weakness. This was thought to be a "transient ischemic attack," also known as a TIA (see handout) The first episode lasted about 30 minutes. TIA events are not the same thing as a stroke. A TIA occurs when a set of neurological symptoms develop and then resolve, typically within hours. Your MRI brain showed an old stroke in the right cerebellum but not a new stroke to account for your symptoms. Your CT scans of the blood vessels of the head & neck were normal, and your echocardiogram was normal. EEG did not show seizure activity. You had a 2nd TIA episode after admission, this event lasting about 30 minutes as well. A second MRI brain was negative for new stroke. The stroke doctor from [place] recommended aspirin and plavix to prevent another TIA . On 10/03 Dr Rm Pepe saw you in consult from [facility]. He felt that both episodes were indeed TIAs. He also recommends aspirin and plavix for prevention of future TIA events along with cholesterol medication. The only other abnormality seen during your stay was an abnormal "PTT" level. This blood test measures your body's ability to clot blood. It may or not be related to your TIA events. We have dispatched a large amount of blood work to check on why the PTT level is abnormal. We also checked blood tests looking for genetic or hereditary causes of blood clotting disorders. These tests will return in about 1 week. Finally, your x-rays of the neck showed arthritis, particularly in the lower portions of the neck. [id number] tylenol and [id number] "Salonpas" (patches) work nicely for neck arthritis. Recommendations - 1. aspirin 81mg once daily for prevention of TIA & stroke. Purchase [id number]. Take indefinitely (unless otherwise directed). 2. plavix (clopidogrel) 75mg once daily x 21 days. After that 21-day time period this drug can be discontinued. Prescription sent to your pharmacy for you. 3. lipitor (atorvastatin) cholesterol medication - 40mg once daily for high cholesterol. Prescription sent to your pharmacy for you. Your lipid profile levels were - * total cholesterol = 235 - goal is <200 * LDL = 130 ("bad" cholesterol) - goal is ideally <70 * HDL = 29 ("good" cholesterol) - goal is ideally >45 * triglycerides = 380 (building block of fat) - goal is <150 4. discontinue your prilosec (omeprazole) acid run lead. In its place take pantoprazole 40mg once daily. Start tomorrow. Prescription sent to your pharmacy for you. 5. please STOP all anti-inflammatory pills including ibuprofen/motrin, diclofenac, naprosyn/alleve, etc. Ok to take tylenol for aches/pains. 6. we recommend you wear a heart monitor for 30 days at home. This is to look for abnormal heart rhythms that can cause TIAs. Namely we are looking for a.fib (none seen while here). This device will be mailed to your home within the next week with instructions on its use. The results will be interpreted by a [facility] welfare aide and sent to your family doctor. 7. please see Dr Pepe or one of his PAs within the next 3-4 weeks for follow- up of your TIA. 8. please see the web marketing strategist (blood specialist) for the abnormal PTT blood test. Dr Jones or one of her PAs can see you at the [facility]. 9. no driving until cleared by Dr Kerr. 10. continue your methylprednisolone steroid for your breathing condition as previous. Follow-up - see separate section It was our pleasure to care for you at [facility]! Dr Matthews Addtl Film Cutter Provider Instructions: Risk Factors for TIA & Stroke: You can reduce your chances of TIA and stroke by working with your medical provider to adopt a healthy lifestyle. Some specific ways to lower your chance of stroke are: * If you are a smoker, now is the time to stop smoking cigarettes * If you are diabetic, improve the control of your blood sugars * Avoid excessive amounts of alcohol * Control high blood pressure * Lose weight if you are overweight * Be sure to lead an active lifestyle * Eat a healthy diet low in salt, cholesterol and fat You should know about other risk factors for stroke that you are unable to control. These include: * Age 55 years or older * Male gender * Certain racial groups: , or / * Family History of Stroke, Mini stroke or Heart Attack * Sickle Cell Disease Follow Up: It is important for you to keep your follow up appointments with your medical provider. Who to Call and When: Medical Emergencies: Call 911 immediately if you experience any of the following warning signs and symptoms of Stroke: * Sudden numbness or weakness of the face, arm or leg, especially on one side of the body * Sudden confusion, trouble speaking or understanding * Sudden trouble seeing in one or both eyes * Sudden trouble walking, dizziness, loss of balance or coordination * Sudden severe headache with no cause Do not delay calling 911 if you experience any warning signs or symptoms of a stroke. Delay in seeking medical attention may affect what treatments can be given to you. . Pending Studies at Discharge: Yes Studies:: Blood work to determine if you have a genetic/inherited form of blood disorder that would predispose you to blood clots, etc. Stand-Alone Forms: My [facility], Smoking Cessation Medications and DC Order Prescriptions: New clopidogrel 75 mg Tablet 75 mg PO QAM Qty: 30 RF: 0 aspirin 81 mg Tablet,Delayed Release (Dr/Ec) 81 mg PO DAILY Qty: 90 RF: 3 atorvastatin 40 mg tablet 40 mg PO DAILY Qty: 30 RF: 2 Continued sertraline 100 mg tablet 200 mg PO DAILY RF: 0 cetirizine 10 mg tablet 10 mg PO DAILY RF: 0 budesonide 0.5 mg/2 mL suspension for nebulization 0.5 mg inhalation BID PRN (Reason: Shortness Of Breath) RF: 0 propranolol 20 mg tablet 20 mg PO TID PRN (Reason: TREMORS) RF: 0 fluticasone propionate 50 mcg/actuation spray,suspension 1 - 2 spray INTRANASAL BID PRN (Reason: Congestion) RF: 0 Changed methylprednisolone 4 mg tablet 16 mg PO DAILY Qty: 0 RF: 0 pantoprazole 40 mg tablet,delayed release (DR/EC) 40 mg PO QAM Qty: 30 RF: 2 Discontinued diclofenac potassium 50 mg tablet 100 mg PO TID RF: 0 ibuprofen 200 mg Tablet 400 - 600 mg PO DIRECTED PRN (Reason: Pain) RF: 0 Discharge Orders: Discharge Order (Routine); Ordered 10/03/21 Ordered By: Myles Cavazos/Other Patient Handouts: Lipid Panel, What Is a TIA?, Medicine for Cholesterol Control Admission Data Admit Date/Time: 10/02/21 20:55 Attending Provider: Myles Matthews Admit Provider: Myles Velarde Primary Care Provider: Song Kerr Other Providers: Myles Velarde ; Rm Pepe Other Interventions: Discharge Summary Assessment (RN) Last Done: 10/03/21 16:54 Coding Level of Care Code D/C DAY MANAGEMENT >30 MINS Diagnoses TIA (transient ischemic attack) G45.9 Cerebrovascular disease I67.9 Prolonged PTT (partial thromboplastin time) R79.1 Hyperlipidemia E78.5 Hyponatremia E87.1 Severe persistent asthma J45.50 GERD (gastroesophageal reflux disease) K21.9 Tremor R25.1 Depression F32.A Arthritis M19.90 Sinus disease J34.9
--- NOTE | 2021-10-03 16:11 | XRay Report ---
CERVICAL SPINE 4 VIEWS CLINICAL HISTORY: Atraumatic posterior neck pain. FINDINGS: AP, lateral, odontoid, and swimmer's views of the thoracic spine are compared to a study da dorian 09/21/2009. The skeletal structures are well mineralized. There is no radiographic evidence of acute fracture or subluxation involving the cervical spine. The odontoid process and lateral masses appear intact as se en on the open-mouth view. The atlantodental articulation is maintained. Vertebral body height and al ignment are maintained throughout the cervical spine. C7 is only seen on the swimmer's view. There is straightening of the cervical lordosis. Small anterior osteophytes are seen throughout. The spinolam inar line is maintained. The spinous processes appear intact. There is only mild disc space narrowing . Posterior disc osteophyte complexes at C4-C5 and C5-C6 may contribute to mild acquired compromise o f the central canal. There is mild multilevel facet arthropathy seen on the frontal view. The prevert ebral soft tissues are within normal limits. Apical lung parenchyma is clear as visualized. IMPRESSION: 1. No acute bony abnormality is seen involving the cervical spine. 2. Mild spondylotic change as above. Dictated: 10/03/2021 4:00 PM Transcribed: 10/03/2021 4:09 PM Phuong [id number] [email or web address]_Barrie Electronically signed by: Gerson Amor M.D. 10/03/2021 4:09 PM
[2021-10-06 15:42] LABS: Anti-Thrombin III Activity 127 % normal (80-135); B2 Glycoprotein IgA <2.0 U/mL (<20.0); B2 Glycoprotein IgG <2.0 U/mL (<20.0); B2 Glycoprotein IgM <2.0 U/mL (<20.0); Coag Factor 11 Activity 85 % (65-150); Coag Factor 9 Activity 98 % (60-160); Phosphatidylserine IgG <10 U/mL (<10); Phosphatidylserine IgM <25 U/mL (<25); Protein S Functional(Activity) 92 % (70-150)
[2021-10-07 07:56] LABS: DRVVT 1:1 Reflex Do Not Order CORRECTED (CORRECTED); DRVVT Neutralization (Reflex) Positive (Negative); Lupus Hex Phase (Rflxdonotord) Positive (Negative); Thrombin Time (reflex only) 17 sec (13-19)
[2021-10-09 21:28] LABS: Factor 5 Mutation NEGATIVE
== END 2021-10-03 18:00 | disposition home or self-care (01) | DRG 69 ==
LOC: 2W 16:04 → ED 16:04 → SUATTDRO 18:02 → 2W 19:28 → 1E 10-02 12:29

== ENCOUNTER 2022-09-19 14:20 | Inpatient (IN) ==
[2022-09-19] MEDS ORDERED: SODIUM CHLORIDE 0.9% 500 ML IV STA (14:27)
--- NOTE | 2022-09-19 14:27 | ED Triage Note ---
Date of Service September 19, 2022 History of Present Illness This patient was briefly evaluated while in triage. An abbreviated physical exam was performed. This patient is a 56-year-old Male who presents to the ED for evaluation of shortness of breath that worsened 5 to 6 days ago, and has progressively worsene d over the past 3 days. Patient also believes that he had a fever as well. The patient has had similar recurrent symptoms. The patient was recently seen by Dr. Arboleda, inner diameter grinder tool for his symptoms. Patient reports history of abnormal CT of the lungs. The patient is currently not on any inhalers. Patient denies any known sick contacts. Physical Exam CONSTITUTIONAL: Healthy and well nourished. Patient does not appear in any acute respiratory distress. HEENT: No scleral icterus or conjunctival injection/pallor. NECK: No JVD or carotid bruits appreciated. LYMPHATICS: No cervical chain adenopathy. RESPIRATORY: Patient has diffuse expiratory wheezing and crackles without stridor. CARDIOVASCULAR: Regular rate and rhythm with no murmurs, rubs or gallops. INTEGUMENTARY: No rash or other significant dermatologic conditions noted. HEMATOLOGIC: No ecchymosis or petechiae. PSYCHIATRIC: Positive affect. NEUROLOGIC: No focal neurologic deficits noted. Initial orders for labs and / or imaging were placed and patient was placed in the waiting area until a bed is available. Please see further documentation for the full ED course.
[2022-09-19 15:01] LABS: Basophils # (auto) 0.03 K/uL (0-0.2); Basophils % (auto) 0.5 %; Eosinophils # (auto) 1.06 K/uL (0-0.50); Eosinophils % (auto) 16.7 %; Hematocrit (blood only) 42.4 % (42.0-52.0); Hemoglobin 14.8 g/dl (14.0-18.0); Immature Granulocytes # (auto) 0.03 K/uL (0.01-0.20); Immature Granulocytes % (auto) 0.5 %; Lymphocytes # (auto) 0.47 K/uL (1.2-3.4); Lymphocytes % (auto) 7.4 %; Mean Corpuscular Hemoglobin 30.3 pg (25.0-34.0); Mean Corpuscular Hgb Conc 34.9 g/dL (32.0-36.0); Mean Corpuscular Volume 86.7 fL (80.0-100.0); Mean Platelet Volume 10.2 fL (9.4-12.4); Monocytes # (auto) 0.52 K/uL (0.11-0.59); Monocytes % (auto) 8.2 %; Neutrophils # (auto) 4.23 K/uL (1.40-6.50); Neutrophils % (auto) 66.7 %; Platelet Count 173 K/uL (130-400); RDW Coefficient of Variation 13.9 % (11.5-14.5); RDW Standard Deviation 43.9 fL (36.4-46.3); Red Blood Count 4.89 M/uL (4.70-6.10); White Blood Count 6.34 K/ul (4.8-10.8)
--- NOTE | 2022-09-19 15:14 | XRay Report ---
XR chest 2V PA/lateral HISTORY: 56 years-old Male Chest pain,SOB acute chest pain with shortness of breath COMPARISON: 03/15/2022 TECHNIQUE: PA and lateral views of the chest FINDINGS: FINDINGS: Cardiomediastinal and hilar silhouettes are within normal limits. No pneumothorax, pleural effusion, airspace consolidation or overt pulmonary edema. Hyperinflation with mild diaphragmatic fla ttening. Mild linear scarring versus atelectasis of the lateral right midlung redemonstrated. Cholecy stectomy. Bones of the chest appear grossly intact. IMPRESSION: Chronic findings as above without acute process. ACT 112: Negative or not required by law. The above report was generated using voice recognition software. It may contain grammatical, syntax o r spelling errors. Electronically signed by: Moises Turpin M.D. 09/19/2022 3:13 PM
[2022-09-19 15:19] LABS: Albumin Globulin Ratio 1.4 (0.9-2); Albumin Level 4.4 gm/dl (3.4-5.0); BUN Creatinine Ratio 15.1 (10-20); Bilirubin,Total 0.9 mg/dl (0.2-1.0); Creatinine Clr Calc Pharmacy 91.6 ml/min; Est GFR (African American) 89.9 ml/min; Est GFR (Non-African American) 77.5 ml/min; Globulin 3.1 gm/dl (2.5-4.0); Potassium 4.1 mmol/L (3.5-5.1); Total Protein 7.5 gm/dl (6.0-8.3)
[2022-09-19 15:25] LABS: Troponin I High Sensitivity 3.9 pg/ml (0-20)
[2022-09-19 15:43] LABS: D Dimer 470 ug/L FEU (0-500); INR 1.2 (0.9-1.1); Partial Thromboplastin Ratio 1.9; Prothrombin Time 12.5 Seconds (9.0-12.0)
[2022-09-19 15:51] LABS: Partial Thromboplastin Time 52.5 Seconds (21.0-31.0)
[2022-09-19 16:01] LABS: Influenza A virus by PCR Negative (Neg); Influenza B virus by PCR Negative (Neg); RSV by PCR Negative (Neg); SARS CoV2 RNA(COVID-19) Ceph NEGATIVE (Negative)
[2022-09-19] MEDS ORDERED: ALBUT/IPRATROP 3MG/0.5MG NEB 3 ML VIAL NEB STA (16:26)
--- NOTE | 2022-09-19 16:30 | Emergency Department Note ---
Impression & Plan SOMERS (dyspnea on exertion), Hypoxia, Abnormal EKG, Asthma exacerbation ED Provider Note NAME: OUSMNAE LISA AGE: 56 SEX: M : 1965 ARRIVES VIA: Walk-In INFORMANT: Patient, ED PROVIDER(S): Joey Choi DO CHIEF COMPLAINT: Shortness of breath HPI: The patient is a 56-year-old male who presented to the emergency department for an evaluation of shortness of breath. The patient states that he has been experiencing shortness of breath over the course of the last week. He states he had similar episodes in the past over the last 4 years. He has had no chest pain. He denies having any swelling in his legs. He denies having any nausea or vomiting. He has been seen multiple times and seen many specialist. No formal diagnosis has been made although he does carry a diagnosis of reactive airway disease/asthma and has a pulmonary physician. He states he does not see his family doctor today. He presented to the emergency department today because he noticed his oxygen saturation at home was in the 70s. He has been compliant with his outpatient medications which include a blood thinner. ROS: See above HPI for pertinent positives & negatives. A total of 10 systems reviewed and were otherwise negative. PAST MEDICAL HISTORY: See Below PAST SURGICAL HISTORY: See Below FAMILY HISTORY: See Below SOCIAL HISTORY: See Below HOME MEDICATIONS: See Below ALLERGIES: See Below VITALS: See Below PHYSICAL EXAMINATION: GENERAL: Patient is awake alert in no acute distress patient is resting comfortably and showing no signs of anxiety EYES: The conjunctivae are clear. The pupils are round and reactive. EARS, NOSE, MOUTH AND THROAT: The nose is without any evidence of any deformity. NECK: The neck is nontender and supple. RESPIRATORY: Diminished breath sounds are noted throughout. Some pursed lip breathing as well as conversational dyspnea was appreciated. There is wheezing in both upper lung grewal. CARDIOVASCULAR: Regular rate and rhythm noted there no murmurs rubs or gallops normal S1 normal S2. GASTROINTESTINAL: The abdomen is soft. Abdomen is nontender. MUSCULOSKELETAL/EXTREMITIES: There is no evidence of gross deformity full range of motion is noted in the hips and shoulders. SKIN: There is no obvious evidence of any rash. There is no calf tenderness or pedal edema noted. NEUROLOGIC: Patient is awake alert and oriented x3 strength is symmetric patellar reflexes are 2+ bilaterally MEDICAL DECISION MAKING: The patient is a 56-year-old male who presented to the emergency department for an evaluation of difficulty breathing. The patient has had problems with difficulty breathing over the course of the last 4 years. It sounds that he has intermittent episodes of this shortness of breath over the course of the last 4 years she has had it multiple times every few months ago. The patient has been compliant with his outpatient medications. He does not have a firm diagnosis but he does see pulmonary at our facility as well as at the [facility]. It was recommended that he starts taking a biologic but this was not approved by insurance. The patient was treated with supplemental oxygen as well as DuoNeb therapy. He was reevaluated multiple times. He was feeling much better on reevaluation. I discussed his condition with the on-call [facility]ist. Triage Nursing notes reviewed. Prior medical records reviewed Vital Signs: reviewed and remarkable for hypoxia. Differential diagnosis: Reactive airway disease, pneumonia, pneumothorax, COPD, CHF, infections, cardiac ischemia, pulmonary embolism, musculoskeletal, gastrointestinal, as well as other pathologies. ER treatment provided: See below Diagnostics interpreted by me: ECG: EKG was obtained in the emergency department. My interpretation is normal sinus rhythm at 84 bpm. There is no ectopy. There is no acute ST segment abnormalities noted. High lateral ST depression with T wave versions are noted. This was compared to a tracing from October 01, 2021. Bilateral changes are new. Cardiac Monitoring: An order was placed for continuous cardiac monitoring. The monitor shows a rate of 75 bpm with sinus rhythm. Laboratory studies: As stated above and show below. Imaging studies: See below. Radiographic imaging was reviewed by myself Consultation(s): The [facility] hospitalist, Dr. Nazario was notified about the patient. Past Med/Surg History Medical History Acute sinusitis Arthritis Calculus of gallbladder with chronic cholecystitis without obstruction Cerebrovascular disease Cough Depression GERD (gastroesophageal reflux disease) Hyperlipidemia Hyponatremia Pancreatitis Personal history of irradiation [employer] Pneumonia Prolonged PTT (partial thromboplastin time) Severe persistent asthma Sinus disease TIA (transient ischemic attack) Tremor Surgical History History of appendectomy History of carpal tunnel surgery History of cholecystectomy S/P knee surgery ACL Family History Brother Myocardial infarction Grandfather Prostate cancer Father Dyslipidemia Sister Diabetes Mother Cancer Denies family history of Ovarian cancer Heart disease Breast cancer Colorectal cancer Lung disease Asthma Social History Smoking Status: Never smoker Hx Alcohol Use: No Hx Substance Use: No Communication Ability: Effective Visual Impairment: Partially Limited marital status: Current Living Situation: Spouse current occupational status: unemployed How many Children do You have: 1 Feels Safe at Home: Yes Childhood Exposure to Second-Hand Smoke: Yes caffeine: Yes Dental Care, Regularly: No Physical Activity Frequency: Does not Exercise Seatbelt Use: always Sunscreen Use: No Assistive Devices: None Allergies Allergies Allergy/AdvReac Type Severity Reaction Status Date / Time oxycodone Allergy Intermediate Vomiting Verified 09/19/22 13:27 niacin Allergy Unverified 09/19/22 13:27 hydrocodone AdvReac Intermediate Vomiting Verified 09/19/22 13:27 Home Meds Home Medications Medication Instructions Recorded Confirmed budesonide 0.5 mg/2 mL suspension 0.5 mg inhalation BID PRN 10/01/21 09/19/22 for nebulization Shortness Of Breath fluticasone propionate 50 1 - 2 spray intranasal BID PRN 10/01/21 09/19/22 mcg/actuation nasal Congestion spray,suspension diclofenac potassium 50 mg tablet 50 mg PO TID PRN Pain 05/31/22 09/19/22 apixaban 5 mg tablet (Eliquis) 5 mg PO BID 09/19/22 09/19/22 atorvastatin 40 mg tablet 40 mg PO DAILY 09/19/22 09/19/22 propranolol 20 mg tablet 20 mg PO TID PRN tremors 09/19/22 09/19/22 Previous Rx's Medication Instructions Recorded aspirin 81 mg tablet,delayed 81 mg PO DAILY #90 tabs 10/03/21 release pantoprazole 40 mg tablet,delayed 40 mg PO QAM #30 tabs 02/21/22 release sertraline 100 mg tablet 200 mg PO DAILY #30 tabs 02/21/22 Results & Data (ED) Vital Signs Vital Signs - 24 hr 09/19/22 14:23 09/19/22 14:27 09/19/22 16:19 Temperature 37.2 C Temperature Source Temporal Artery Scan Pulse Rate 81 Respiratory Rate 18 Respiratory Effort / Characteristics Non-Labored Spontaneous Non-Labored Spontaneous Respiratory Depth Normal Normal Respiratory Pattern Regular Regular Blood Pressure 138/89 Blood Pressure Mean 105 Blood Pressure Position Sitting Pulse Oximetry 94 89 L Oxygen Delivery Method Room Air Nasal Cannula Oxygen Flow Rate 0 Sepsis Recent Fever Within 48 Hours No Sepsis New/Unexplained Change in Mental Status N/A Sepsis Action Taken by Nursing No Action Required Oxygen Flow Rate - Titration 2 Pulse Oximetry Post Tiitration 93 09/19/22 16:00 09/19/22 16:26 Temperature Temperature Source Pulse Rate 75 Respiratory Rate Respiratory Effort / Characteristics Respiratory Depth Respiratory Pattern Blood Pressure Blood Pressure Mean Blood Pressure Position Pulse Oximetry 89 L Oxygen Delivery Method Room Air Oxygen Flow Rate Sepsis Recent Fever Within 48 Hours Sepsis New/Unexplained Change in Mental Status Sepsis Action Taken by Nursing Oxygen Flow Rate - Titration Pulse Oximetry Post Tiitration Home Medications Current Medication List: was personally reviewed by me Laboratory Data Attestation: I reviewed the patient's lab results. 09/19/22 14:30 09/19/22 14:30 Lab Results 09/19/22 09/19/22 09/19/22 Range/Units 14:30 14:30 14:30 WBC 6.34 (4.8-10.8) K/ul RBC 4.89 (4.70-6.10) M/uL Hgb 14.8 (14.0-18.0) g/dl Hct 42.4 (42.0-52.0) % MCV 86.7 (80.0-100.0) fL MCH 30.3 (25.0-34.0) pg MCHC 34.9 (32.0-36.0) g/dL RDW Std Deviation 43.9 (36.4-46.3) fL RDW Coeff of Cheryl 13.9 (11.5-14.5) % Plt Count 173 (130-400) K/uL MPV 10.2 (9.4-12.4) fL Immature Gran % (Auto) 0.5 % Neut % (Auto) 66.7 % Lymph % (Auto) 7.4 % Hemphill % (Auto) 8.2 % Eos % (Auto) 16.7 % Baso % (Auto) 0.5 % Neut # (Auto) 4.23 (1.40-6.50) K/uL Lymph # (Auto) 0.47 L (1.2-3.4) K/uL Hemphill # (Auto) 0.52 (0.11-0.59) K/uL Eos # (Auto) 1.06 H (0-0.50) K/uL Baso # (Auto) 0.03 (0-0.2) K/uL Immature Gran # (Auto) 0.03 (0.01-0.20) K/uL PT 12.5 H (9.0-12.0) Seconds INR 1.2 H (0.9-1.1) APTT 52.5 H* (21.0-31.0) Seconds PTT Ratio 1.9 D-Dimer 470 (0-500) ug/L FEU Sodium 140 (136-145) mmol/L Potassium 4.1 (3.5-5.1) mmol/L Chloride 107 (98-107) mmol/L Carbon Dioxide 25 (21-32) mmol/L Anion Gap 8 (3-11) BUN 16 (6-23) mg/dl Creatinine 1.06 (0.6-1.4) mg/dl Est Cr Clr Drug Dosing 91.6 ml/min Est GFR ( Amer) 89.9 ml/min Est GFR (Non-Af Amer) 77.5 ml/min BUN/Creatinine Ratio 15.1 (10-20) Glucose 89 (70-99(Fasting)) mg/dl Calcium 9.0 (8.6-10.3) mg/dl Total Bilirubin 0.9 (0.2-1.0) mg/dl AST 14 (13-39) U/L ALT 11 (7-52) U/L Alkaline Phosphatase 87 (34-104) U/L Troponin I High Sens 3.9 (0-20) pg/ml Total Protein 7.5 (6.0-8.3) gm/dl Albumin 4.4 (3.4-5.0) gm/dl Globulin 3.1 (2.5-4.0) gm/dl Albumin/Globulin Ratio 1.4 (0.9-2) Lipase 8 L (11-82) U/L SARS-CoV-2 (PCR) (Negative) Influenza Type A (PCR) (Neg) Influenza Type B (PCR) (Neg) RSV (RT-PCR) (Neg) 09/19/22 Range/Units 14:30 WBC (4.8-10.8) K/ul RBC (4.70-6.10) M/uL Hgb (14.0-18.0) g/dl Hct (42.0-52.0) % MCV (80.0-100.0) fL MCH (25.0-34.0) pg MCHC (32.0-36.0) g/dL RDW Std Deviation (36.4-46.3) fL RDW Coeff of Cheryl (11.5-14.5) % Plt Count (130-400) K/uL MPV (9.4-12.4) fL Immature Gran % (Auto) % Neut % (Auto) % Lymph % (Auto) % Hemphill % (Auto) % Eos % (Auto) % Baso % (Auto) % Neut # (Auto) (1.40-6.50) K/uL Lymph # (Auto) (1.2-3.4) K/uL Hemphill # (Auto) (0.11-0.59) K/uL Eos # (Auto) (0-0.50) K/uL Baso # (Auto) (0-0.2) K/uL Immature Gran # (Auto) (0.01-0.20) K/uL PT (9.0-12.0) Seconds INR (0.9-1.1) APTT (21.0-31.0) Seconds PTT Ratio D-Dimer (0-500) ug/L FEU Sodium (136-145) mmol/L Potassium (3.5-5.1) mmol/L Chloride (98-107) mmol/L Carbon Dioxide (21-32) mmol/L Anion Gap (3-11) BUN (6-23) mg/dl Creatinine (0.6-1.4) mg/dl Est Cr Clr Drug Dosing ml/min Est GFR ( Amer) ml/min Est GFR (Non-Af Amer) ml/min BUN/Creatinine Ratio (10-20) Glucose (70-99(Fasting)) mg/dl Calcium (8.6-10.3) mg/dl Total Bilirubin (0.2-1.0) mg/dl AST (13-39) U/L ALT (7-52) U/L Alkaline Phosphatase (34-104) U/L Troponin I High Sens (0-20) pg/ml Total Protein (6.0-8.3) gm/dl Albumin (3.4-5.0) gm/dl Globulin (2.5-4.0) gm/dl Albumin/Globulin Ratio (0.9-2) Lipase (11-82) U/L SARS-CoV-2 (PCR) NEGATIVE (Negative) Influenza Type A (PCR) Negative (Neg) Influenza Type B (PCR) Negative (Neg) RSV (RT-PCR) Negative (Neg) Administered Medications Discontinued Medications Albuterol (Albut/Ipratrop 3mg/0.5mg Neb 3 Ml Vial) 3 ml NEB NOW STA; Protocol Stop: 09/19/22 16:27 Last Admin: 09/19/22 16:46 Dose: 3 ml Documented By: HEAVEN Sodium Chloride (Nss) 500 mls @ 999 mls/hr IV .Q31M STA Stop: 09/19/22 14:57 Last Infusion: 09/19/22 16:46 Dose: 0 mls/hr Documented By: Admin: 09/19/22 15:57 Dose: 999 mls/hr Documented By: HEAVEN Imaging Data Attestation: I personally reviewed and interpreted this imaging study as follows: My Impression: 2 view chest x-ray was obtained in the emergency department. My interpretation is no free air, no definite filtrate, final report below. Radiologist's Impression: Chest X-Ray 09/19/22 14:27 XR chest 2V PA/lateral HISTORY: 56 years-old Male Chest pain,SOB acute chest pain with shortness of breath COMPARISON: 03/15/2022 TECHNIQUE: PA and lateral views of the chest FINDINGS: FINDINGS: Cardiomediastinal and hilar silhouettes are within normal limits. No pneumothorax, pleural effusion, airspace consolidation or overt pulmonary edema. Hyperinflation with mild diaphragmatic flattening. Mild linear scarring versus atelectasis of the lateral right midlung redemonstrated. Cholecystectomy. Bones of the chest appear grossly intact. IMPRESSION: Chronic findings as above without acute process. ACT 112: Negative or not required by law. The above report was generated using voice recognition software. It may contain grammatical, syntax or spelling errors. Electronically signed by: Moises Turpin M.D. 09/19/2022 3:13 PM Discharge Plan Visit Data Chief Complaint: Shortness of Breath/Dyspnea Stated Complaint: cant breathe, oxygen level low ED Provider: Joey Choi Discharge Problem: SOMERS (dyspnea on exertion), Hypoxia, Abnormal EKG, Asthma exacerbation Patient Disposition: Being Evaluated by Hospitalist Forms Stand Alone Forms: My [facility] Prescriptions Prescriptions: No Action pantoprazole 40 mg tablet,delayed release (DR/EC) 40 mg PO QAM Qty: 30 11RF sertraline 100 mg tablet 200 mg PO DAILY Qty: 30 11RF diclofenac potassium 50 mg tablet 50 mg PO TID PRN (Reason: Pain) budesonide 0.5 mg/2 mL suspension for nebulization 0.5 mg inhalation BID PRN (Reason: Shortness Of Breath) fluticasone propionate 50 mcg/actuation spray,suspension 1 - 2 spray INTRANASAL BID PRN (Reason: Congestion) aspirin 81 mg Tablet,Delayed Release (Dr/Ec) 81 mg PO DAILY Qty: 90 3RF Rx Instructions: purchase [id number] Eliquis 5 mg tablet 5 mg PO BID atorvastatin 40 mg tablet 40 mg PO DAILY propranolol 20 mg tablet 20 mg PO TID PRN (Reason: tremors) Referrals Referrals: Song Pride MD [Primary Care Provider] -
--- NOTE | 2022-09-19 17:06 | History & Physical Report ---
Date of Service September 19, 2022 Assessment & Plan (1) Acute respiratory failure with hypoxia: Plan: Acute on chronic hypoxic respiratory failure, shortness of breath/dyspnea, sputum production. - Has had intermittent shortness of breath over the last 4 years - Home O2 sats 70%s, in the 80s in ER improved with SpO2. Endorses a tight feeling with wheezing, but no chest pain/chest pressure.. 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 Was pending ENT evaluation for chronic sinus drainage CXR: No acute airspace consolidation, edema, effusion appreciated. Right midlung chronic changes? Linear scarring/atelectasis, and hyperinflation with mild diaphragmatic flattening are redemonstrated No leukocytosis, afebrile. D-dimer is normal COVID/flu/RSV are negative Patient is with extensive history of steroid use, was on Bactrim for a flare and cough. Denies concern for PJP specifically to his knowledge. Given feeling of warmth/fever preceding symptoms, increased sputum production and yellow/green color will add Pro-Norman and expanded viral panel, obtain CTchest, and add Fungitell given history of extended prednisone use. No consolidative pneumonia appreciated on initial x-ray, will add atypical coverage at this time and continue to follow. Eosinophil count remains elevated at 1.06 Continue symptomatic care, will use combination of Flonase/azelastine -If not improving with above, will require two-step and possible home oxygen - Sputum cx pending History of TIA Lupus anticoagulant positive in the past Continue aspirin, Eliquis GERD Continue Protonix daily new Hyperlipidemia Continue statin DVT prophylaxis: Anticoagulated Diet: Regular Disposition: Medical surgical CODE STATUS: Full (2) TIA (transient ischemic attack): (3) Lupus anticoagulant disorder: History of Present Illness Primary Care Provider: Song Pride MD Roderick Bailey is a 56-year-old male with a past medical history of interstitial lung disease and chronic shortness of breath, A-fib with history of lupus anticoagulant, TIA on aspirin, eosinophilia pending follow-up to pulmonary with Nucala evaluation, asthma, and rotator cuff arthropathy Shaun is seen with his Sandra at the bedside. He reports he was more short of breath and hypoxic for the the last 2 days. Called his PCP and was recommended to have an appointment as outpatient as long as SpO2 was remaining above 90. In office there his levels were <90% and was recommended for ER evaluation. Warm a few days ago, but denies chills or sweats. +Increasingly productive cough with green/yellow sputum which 'has been worse in the past" but if new and worse compared to 3 weeks ago No nausea, vomiting, or diarrhea. No chest pain or chest pressure. Feels tight in the chest with breathing with wheezing, but not pain/pressure. Similar to breathing exacerbations last 3-[address] Saeed and was on Dupixent for around 6 weeks but did not have any benefit and stopped this on followup. Followed with [facility] after and 'just never got an answer' Saw Dr. Arboleda around 1 week ago, assessment unclear but did not have all records available at that time but was pending PFTs in a few weeks, imaging requested, and will followup again in October. Endorses chronic post nasal drip which have also been worse in the last few days. Reports many years ago saw Dr. Zayas for a deviated septum. - Records requested from [facility] [place] - Pt does note that his symptoms seemed to worsen since having COVID Feb 2021. Did not need oxygen at the time, but seemed to gradually get worse after he recovered from the acute illness. - Last CT scan in [facility] with GGO in the lung few years ago ~2020, last CT here 2021 - Will update CT scan and request records. - Had been on many courses of prednisone for extended periods in the past. REcently completed a 6 week course of bactrim 1-2 months. Denies hx of PJP. Medical History: Reviewed Medications: Reviewed Surgical History: Reviewed Family history: Reviewed Allergies: Reviewed Social History: No tobacco, no etoh. +welding fume exposure. Code Status: Full Allergies Allergy/AdvReac Type Severity Reaction Status Date / Time oxycodone Allergy Intermediate Vomiting Verified 09/19/22 13:27 niacin Allergy Unverified 09/19/22 13:27 hydrocodone AdvReac Intermediate Vomiting Verified 09/19/22 13:27 Home Medications Medication Instructions Recorded Confirmed Type budesonide 0.5 mg/2 mL suspension 0.5 mg inhalation BID PRN 10/01/21 09/19/22 History for nebulization Shortness Of Breath fluticasone propionate 50 1 - 2 spray intranasal BID PRN 10/01/21 09/19/22 History mcg/actuation nasal Congestion spray,suspension aspirin 81 mg tablet,delayed 81 mg PO DAILY #90 tabs 10/03/21 09/19/22 Rx release pantoprazole 40 mg tablet,delayed 40 mg PO QAM #30 tabs 02/21/22 09/19/22 Rx release sertraline 100 mg tablet 200 mg PO DAILY #30 tabs 02/21/22 09/19/22 Rx diclofenac potassium 50 mg tablet 50 mg PO TID PRN Pain 05/31/22 09/19/22 History apixaban 5 mg tablet (Eliquis) 5 mg PO BID 09/19/22 09/19/22 History atorvastatin 40 mg tablet 40 mg PO DAILY 09/19/22 09/19/22 History propranolol 20 mg tablet 20 mg PO TID PRN tremors 09/19/22 09/19/22 History Past Med/Surg History Medical History Acute sinusitis Arthritis Calculus of gallbladder with chronic cholecystitis without obstruction Cerebrovascular disease Cough Depression GERD (gastroesophageal reflux disease) Hyperlipidemia Hyponatremia Pancreatitis Personal history of irradiation [employer] Pneumonia Prolonged PTT (partial thromboplastin time) Severe persistent asthma Sinus disease TIA (transient ischemic attack) Tremor Surgical History History of appendectomy History of carpal tunnel surgery History of cholecystectomy S/P knee surgery ACL Family History Brother Myocardial infarction Grandfather Prostate cancer Father Dyslipidemia Sister Diabetes Mother Cancer Denies family history of Ovarian cancer Heart disease Breast cancer Colorectal cancer Lung disease Asthma Social History Smoking Status: Never smoker Hx Alcohol Use: No Hx Substance Use: No Communication Ability: Effective Visual Impairment: Partially Limited marital status: Current Living Situation: Spouse current occupational status: unemployed How many Children do You have: 1 Feels Safe at Home: Yes Childhood Exposure to Second-Hand Smoke: Yes caffeine: Yes Dental Care, Regularly: No Physical Activity Frequency: Does not Exercise Seatbelt Use: always Sunscreen Use: No Assistive Devices: None Review of Systems Review of Systems: All systems reviewed & are unremarkable except as noted in HPI & below Physical Exam Physical Exam: General: A&Ox3. NAD. Cooperative. HEENT: Atraumatic, normocephalic. Vision/hearing intact. RENARD. Pulm: RUL/RLL expiratory wheezes, basilar crackles, trace DAGO expiratory wheezes. No rales. Symmetrical chest rise. No increased work of breathing. No respiratory distress. Cardiac: RRR, -mrg. Radial pulses intact and symmetrical. Abdominal: Nontender, nondistended, soft. BS present. Ext: warm, dry Results & Data Results & Data Vital Signs (Past 12 Hours) Vital Signs Temp Pulse Resp BP Pulse Ox O2 Del Method O2 Flow Rate 09/19/22 16:26 75 09/19/22 16:00 89 L Room Air 09/19/22 16:19 89 L Nasal Cannula 0 09/19/22 14:23 37.2 C 81 18 138/89 94 Room Air PG Care Time/CCT Total # of Minutes Spent Total Time Spent with Patient: Total time spent is greater than 50% in coordination of care (as documented) at patient's floor/unit and/or counseling patient: Coding Level of Care Code 23757 INT INP/OBS CARE 2/55MIN Diagnoses Acute respiratory failure with hypoxia J96.01 TIA (transient ischemic attack) G45.9 Lupus anticoagulant disorder D68.62
--- NOTE | 2022-09-19 18:48 | CT Scan Report ---
CT SCAN OF THE CHEST WITHOUT IV CONTRAST CLINICAL HISTORY: Hypoxia. Acute on chronic respiratory failure. COMPARISON STUDY: Chest CT dated 01/19/2022. Chest x-ray dated 09/19/2022. TECHNIQUE: CT scan of the thorax was performed from the thoracic inlet to the upper abdomen. Images are reviewed in the axial, sagittal, and coronal planes. IV contrast was not administered for this ex amination as per the referring clinician. A dose lowering technique was utilized adhering to the justen Cole. CT DOSE: 470.13 mGy.cm FINDINGS: Thyroid: Imaged portions of the thyroid gland are normal in size and attenuation. Thoracic aorta: The thoracic aorta is normal in caliber and demonstrates standard 3-vessel arch anato my. Heart: The heart is normal in size and without pericardial effusion. The coronary arteries are densel y calcified. Lungs and pleural spaces: Evaluation of the lung parenchyma is degraded by motion artifact. Secretion s are noted in the trachea. There is multifocal ground glass consolidation seen throughout both lungs , greatest at the lung bases and in the subpleural distribution. No pleural effusion is identified. T here are scattered calcified granulomas. A 2 mm left lower lobe nodule on image #264 is unchanged. Mediastinum: Prominent subcentimeter mediastinal lymph nodes are likely reactive. Analy: Not well assessed without IV contrast. Axillae: There is no axillary lymphadenopathy. Upper abdomen: Cholecystectomy clips are noted. The spleen is enlarged measuring at least 17 cm in le ngth. Hepatomegaly is also noted. There is a small to moderate hiatal hernia. A duodenal diverticulum is noted. Skeletal structures: The skeletal structures appear osteopenic. No lytic or blastic bony lesions are seen. IMPRESSION: 1. There is bilateral multifocal groundglass consolidation with a lower lobe and subpleural predomina nce. This suggests an infectious/inflammatory pneumonitis and may be viral. Correlate clinically. A 3 -4 month follow-up chest CT is recommended to document resolution. 2. No pleural effusion. 3. Hepatosplenomegaly. 4. Additional findings as above. ACT 112: Negative or not required by law. Electronically signed by: Gerson Amor M.D. 09/19/2022 6:46 PM
[2022-09-19] MEDS ORDERED: PROPRANOLOL HCL 20 MG TAB PO PRN (20:06)
[2022-09-19] MEDS ORDERED: AZITHROMYCIN 500 MG in DEXTROSE 5% 250 ML IV STA (20:24)
[2022-09-19] MEDS: ACETAMINOPHEN 325 MG TAB PO PRN (20:54)
--- NOTE | 2022-09-19 20:57 | Electrocardiogram Report ---
Test Reason : Blood Pressure : / mmHG Vent. Rate : 084 BPM Atrial Rate : 084 BPM P-R Int : 152 ms QRS Dur : 076 ms QT Int : 380 ms P-R-T Axes : 090 046 083 degrees QTc Int : 449 ms Normal sinus rhythm Normal ECG When compared with ECG of 01-OCT-2021 16:22, No significant change was found Confirmed by Angel Killian ([id number]) on 09/19/2022 8:57:22 PM Referred By: Confirmed By:Angel Killian
[2022-09-19] MEDS: FLUTICASONE PROPIONATE NA SPR 16 GM BTL NAE SCH (21:07)
[2022-09-19] MEDS: AZELASTINE HCL 0.1% NASAL 200 SPRAYS/27,400 MCG BTL SCH (21:07)
[2022-09-19] MEDS: APIXABAN 5 MG TABLET PO SCH (21:07)
[2022-09-19 22:12] LABS: Adenovirus PCR Not Detected (NotDetected); Bordetella parapertussis PCR Not Detected (NotDetected); Bordetella pertussis PCR Not Detected (NotDetected); Chlamydia pneumoniae PCR Not Detected (NotDetected); Coronavirus 229E PCR Not Detected (NotDetected); Coronavirus CoV-2 (COVID19)PCR Not Detected (NotDetected); Coronavirus HKU1 PCR Not Detected (NotDetected); Coronavirus NL63 PCR Not Detected (NotDetected); Coronavirus OC43PCR Not Detected (NotDetected); Human Metapneumovirus PCR Not Detected (NotDetected); Influenza A PCR Not Detected (NotDetected); Influenza B PCR Not Detected (NotDetected); Mycoplasma pneumoniae PCR Not Detected (NotDetected); Parainfluenza Virus 1 PCR Not Detected (NotDetected); Parainfluenza Virus 2 PCR Not Detected (NotDetected); Parainfluenza Virus 3 PCR Not Detected (NotDetected); Parainfluenza Virus 4 PCR Not Detected (NotDetected); Respiratory Syncytial VirusPCR Not Detected (NotDetected); Rhinovirus/Enterovirus PCR Not Detected (NotDetected)
[2022-09-20] MEDS: ATORVASTATIN 40 MG TAB PO SCH (07:54)
[2022-09-20] MEDS: SERTRALINE HCL 100 MG TABLET PO SCH (07:54)
[2022-09-20] MEDS: ASPIRIN 81 MG ECTAB PO SCH (07:54)
[2022-09-20] MEDS: PANTOprazole 40 MG TAB PO SCH (07:54)
[2022-09-20] MEDS: APIXABAN 5 MG TABLET PO SCH ×2 (07:54→21:29)
[2022-09-20] MEDS: AZITHROMYCIN 250 MG TAB PO SCH (07:54)
[2022-09-20] MEDS: AZELASTINE HCL 0.1% NASAL 200 SPRAYS/27,400 MCG BTL SCH ×2 (07:56→21:29)
[2022-09-20] MEDS: FLUTICASONE PROPIONATE NA SPR 16 GM BTL NAE SCH ×2 (07:56→21:29)
[2022-09-20 08:47] LABS: Basophils # (auto) 0.03 K/uL (0-0.2); Basophils % (auto) 0.4 %; Eosinophils # (auto) 1.32 K/uL (0-0.50); Eosinophils % (auto) 19.6 %; Hematocrit (blood only) 37.6 % (42.0-52.0); Immature Granulocytes # (auto) 0.03 K/uL (0.01-0.20); Immature Granulocytes % (auto) 0.4 %; Lymphocytes # (auto) 0.78 K/uL (1.2-3.4); Lymphocytes % (auto) 11.6 %; Mean Corpuscular Hemoglobin 30.4 pg (25.0-34.0); Mean Corpuscular Hgb Conc 34.6 g/dL (32.0-36.0); Mean Corpuscular Volume 87.9 fL (80.0-100.0); Mean Platelet Volume 10.2 fL (9.4-12.4); Monocytes # (auto) 0.56 K/uL (0.11-0.59); Monocytes % (auto) 8.3 %; Neutrophils % (auto) 59.7 %; Platelet Count 162 K/uL (130-400); RDW Standard Deviation 44.6 fL (36.4-46.3); Red Blood Count 4.28 M/uL (4.70-6.10); White Blood Count 6.72 K/ul (4.8-10.8)
[2022-09-20 09:02] LABS: Calcium 8.4 mg/dl (8.6-10.3); Creatinine Clr Calc Pharmacy 96.7 ml/min; Est GFR (African American) 96.4 ml/min; Est GFR (Non-African American) 83.2 ml/min; Magnesium 1.9 mg/dl (1.7-2.4); Potassium 3.7 mmol/L (3.5-5.1)
--- NOTE | 2022-09-20 10:12 | Hospitalist Progress Note ---
Date of Service September 20, 2022 Assessment & Plan (1) Acute respiratory failure with hypoxia: Plan: Acute on chronic hypoxic respiratory failure -History of intermittent dyspnea x4 years, welding fume exposure, elevated IgE level, eosinophilia, apparent cryptogenic pneumonia -Noted history of prolonged steroid use -EKG wnl, D-dimer, troponin, COVID/flu/RSV, procalcitonin normal, RVP negative, Fungitell still pending -CXR- no acute process, chronic findings include R midlung linear scarring/atelectasis, hyperinflation w/ diaphragmatic flattening -Chest CT- b/l multifocal ground glass opacities w/ lower lobe + subpleural predominance suggesting infectious/inflammatory pneumonitis, may be viral -Recommend 3-4 month f/u chest CT -Pending studies- Fungitell, sputum Cx, outpatient PFTs from 09/01/22 -Continue azithromycin -Continue supportive care- Azelastine, Flonase, supplemental O2 -Considering addition of steroid therapy if no significant improvement -Currently stable on 3L NC O2 -Pulmonology consulted Paroxysmal atrial fibrillation -Currently sinus rhythm, rate-controlled -Continue apixaban History of TIA Lupus anticoagulant positive in the past Continue aspirin, Eliquis GERD Continue pantoprazole HLD Continue statin Depression -Continue sertraline DVT prophylaxis: Eliquis Diet: Regular Disposition: Medical/surgical CODE STATUS: Full (2) TIA (transient ischemic attack): (3) Lupus anticoagulant disorder: Admission and Anticipated Discharge Date Admission Date: September 19, 2022 Supervising Physician Co-Signing Physician Notes Resident Physician Supervision Note: I independently interviewed and examined the patient and verified the dwyer history and physical, reviewed labs and image studies and agree with resident findings and care plan. Subjective Acute events overnight- none. Pt examined at bedside. Reports no change in his symptoms from admission. Still reporting cough and dyspnea, denies chest pain. Review of Systems Review of Systems: Per HPI/Subjective Physical Exam Physical Exam: General: A&Ox3. NAD. Cooperative. Nasal cannula in place HEENT: Atraumatic, normocephalic. Moist mucous membranes Neck: supple, trachea midline CV: RRR, normal S1 and S2, no murmurs Resp: diffusely coarse breath sounds with b/l expiratory wheezes of upper lobes R > L, bibasilar crackles, no accessory muscle use Abd: soft, nontender, nondistended Ext: no LE peripheral edema or erythema Results & Data Results & Data Vital Signs (Past 12 Hours) Vital Signs Temp Pulse Resp BP Pulse Ox O2 Del Method O2 Flow Rate 09/20/22 07:35 Nasal Cannula 2 09/20/22 08:06 36.5 C 66 18 129/78 94 Nasal Cannula 3 Resident Activity Tracking Resident Involvement: Resident Care Provided Care Provided: Adult Hospital Medicine
--- NOTE | 2022-09-20 11:14 | Pulmonary Consultation ---
Date of Consultation September 20, 2022 Assessment & Plan (1) Acute respiratory failure with hypoxia: (2) Lupus anticoagulant disorder: (3) Elevated IgE level: (4) Abnormal CT scan of lung: Plan PFT 12/12/2019 personally reviewed: No obstructive lung dysfunction, insignificant bronchodilator response FVC 4.8 L 96%, FEV1 3.75 L 95%, FEV1/FVC 78%, TLC 93%, DLCO 79% CT chest 09/19/2022 personally reviewed: Minimal bilateral apical pleural scarring Groundglass opacity in the right upper as well as left upper lobe as well as bilateral lower lobes Minimal tree-in-bud opacities appreciated in the lingula and right middle lobe Small hiatal hernia No significant mediastinal lymphadenopathy The groundglass opacities in the tree-in-bud opacities are new compared to CAT scan done January 2022 -- Acute hypoxic respiratory failure Secondary to multilobar pneumonia Respiratory bio fire negative for everything including COVID-19 PCR Procalcitonin 0.28 Used to be on Trelegy inhaler in the past with no significant benefit. 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 Plan would be to repeat a CAT scan of the chest in 6-8 weeks and if the infiltrates are still persistent then bronchoscopy would be pursued Please note the above document was generated using voice recognition software. It may contain grammatical, syntax or spelling errors.Any formal questions or concerns about the content, text or information contained within the body of this dictation should be directly addressed to the provider for clarification. History of Present Illness Attending Physician: Shania Robles MD History of Present Illness 56-year-old male presented to the hospital with complaints of shortness of breath Past medical history: A-fib, hypercoagulable state with lupus anticoagulant, TIA, ILD, Patient carries a history of cryptogenic organizing pneumonia through biopsy done at [facility]. Was on azathioprine and prednisone. Pulmonary consulted for hypoxia Patient follows up with Dr. Arboleda as an outpatient, he saw the patient last on 09/01/2022, notes personally reviewed At the time of examination patient's was in the room Patient was saturating 89% on room air at the time of examination at rest. Patient Stated that he was not feeling well and get being more shortness of breath since last 3 or 4 days He does have a feeling that he has phlegm but is not able to bring anything up Denies any diarrhea No dysuria. No headache, no blurry vision. Denies any recent travel history. Complain of subjective fever. No chills. No hematuria, no hematochezia, no epistaxis Patient was taking azathioprine and prednisone for possible [employer] but has stopped it for a while. 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 Did not wear any mask. No birds or poultry nearby. Has a dog and cat at home. Did not go up on a farm Has not been working for more than a year Allergies Allergy/AdvReac Type Severity Reaction Status Date / Time oxycodone Allergy Intermediate Vomiting Verified 09/19/22 13:27 niacin Allergy Unverified 09/19/22 13:27 hydrocodone AdvReac Intermediate Vomiting Verified 09/19/22 13:27 Home Medications Medication Instructions Recorded Confirmed Type budesonide 0.5 mg/2 mL suspension 0.5 mg inhalation BID PRN 10/01/21 09/19/22 History for nebulization Shortness Of Breath fluticasone propionate 50 1 - 2 spray intranasal BID PRN 10/01/21 09/19/22 History mcg/actuation nasal Congestion spray,suspension aspirin 81 mg tablet,delayed 81 mg PO DAILY #90 tabs 10/03/21 09/19/22 Rx release pantoprazole 40 mg tablet,delayed 40 mg PO QAM #30 tabs 02/21/22 09/19/22 Rx release sertraline 100 mg tablet 200 mg PO DAILY #30 tabs 02/21/22 09/19/22 Rx diclofenac potassium 50 mg tablet 50 mg PO TID PRN Pain 05/31/22 09/19/22 History apixaban 5 mg tablet (Eliquis) 5 mg PO BID 09/19/22 09/19/22 History atorvastatin 40 mg tablet 40 mg PO DAILY 09/19/22 09/19/22 History propranolol 20 mg tablet 20 mg PO TID PRN tremors 09/19/22 09/19/22 History Patient History Medical History Acute sinusitis Arthritis Calculus of gallbladder with chronic cholecystitis without obstruction Cerebrovascular disease Cough Depression GERD (gastroesophageal reflux disease) Hyperlipidemia Hyponatremia Pancreatitis Personal history of irradiation [employer] Pneumonia Prolonged PTT (partial thromboplastin time) Severe persistent asthma Sinus disease TIA (transient ischemic attack) Tremor Surgical History History of appendectomy History of carpal tunnel surgery History of cholecystectomy S/P knee surgery ACL Family History Brother Myocardial infarction Grandfather Prostate cancer Father Dyslipidemia Sister Diabetes Mother Cancer Denies family history of Ovarian cancer Heart disease Breast cancer Colorectal cancer Lung disease Asthma Social History Smoking Status: Never smoker Second Hand Exposure: No; Do You Dip or Chew Tobacco: No; Tobacco Cessation Education Requested by Patient: No Hx Alcohol Use: No Hx Substance Use: No Preferred Language: Mauritian Communication Ability: Effective Visual Impairment: Partially Limited Silk Screen Cutter Required: No Beliefs That Will Affect Care: None marital status: Current Living Situation: Spouse current occupational status: unemployed How many Children do You have: 1 Other Information That Helps Us Care for You: No Feels Safe at Home: Yes Safety Concerns: Feels Safe At This Time Childhood Exposure to Second-Hand Smoke: Yes caffeine: Yes Dental Care, Regularly: No Physical Activity Frequency: Does not Exercise Seatbelt Use: always Sunscreen Use: No Assistive Devices: Nebulizer Review of Systems Review of Systems: All systems reviewed & are unremarkable except as noted in HPI & below Physical Exam Physical Exam: Constitutional: No acute distress HEENT: EOMI, PERRLA Respiratory system: Decreased air entry bilaterally, minimal wheeze, mild rhonchi, minimal crackles bilaterally CVS: S1-S2 positive, no murmurs or gallops Abdomen: Soft, nontender, nondistended, positive bowel sounds x4 Extremities: +2 pulses bilaterally radialis/ dorsalis pedis, no cyanosis, no edema Neuro: Awake alert oriented x3 Psych: Normal mood and affect G/U: No Dixon Skin: no rashes, warm and dry Lymphatic: no cervical or axillary lymphadenopathy Results & Data Results & Data Vital Signs (Past 12 Hours) Vital Signs Temp Pulse Resp BP Pulse Ox O2 Del Method O2 Flow Rate 09/20/22 07:35 Nasal Cannula 2 09/20/22 08:06 36.5 C 66 18 129/78 94 Nasal Cannula 3 Laboratory Results 09/20/22 08:18 09/20/22 08:18 PG Care Time/CCT Total # of Minutes Spent Total Time Spent with Patient: Total time spent is greater than 50% in coordination of care (as documented) at patient's floor/unit and/or counseling patient: Coding Level of Care Code 53302 INT INP/OBS CARE 3/75MIN Diagnoses Acute respiratory failure with hypoxia J96.01 Lupus anticoagulant disorder D68.62 Elevated IgE level R76.[address] scan of lung R91.8
[2022-09-20] MEDS: ACETAMINOPHEN 325 MG TAB PO PRN (17:52)
[2022-09-20] MEDS: BUDESONIDE 0.5 MG/2 ML VIAL (PULMICORT) INH PRN (21:49)
[2022-09-21] MEDS: SODIUM CHLOR 7% 4 ML NEB NEB SCH ×2 (07:19→19:06)
[2022-09-21] MEDS: FORMOTEROL 20 MCG/2 ML VIAL INH SCH ×2 (07:20→19:04)
[2022-09-21] MEDS: BUDESONIDE 0.25 MG/2 ML VIAL (PULMICORT) NEB SCH ×2 (07:20→19:07)
--- NOTE | 2022-09-21 08:39 | Pulmonology Progress Note ---
Date of Service September 21, 2022 Assessment & Plan (1) Acute respiratory failure with hypoxia: (2) Lupus anticoagulant disorder: (3) Elevated IgE level: (4) Abnormal CT scan of lung: Plan PFT 12/12/2019 personally reviewed: No obstructive lung dysfunction, in significant bronchodilator response FVC 4.8 L 96%, FEV1 3.75 L 95%, FEV1/FVC 78%, TLC 93%, DLCO 79% CT chest 09/19/2022 personally reviewed: Minimal bilateral apical pleural scarring Groundglass opacity in the right upper as well as left upper lobe as well as bilateral lower lobes Minimal tree-in-bud opacities appreciated in the lingula and right middle lobe Small hiatal hernia No significant mediastinal lymphadenopathy The ground-glass opacities in the tree-in-bud opacities are new compared to CAT scan done January 2022 -- Acute hypoxic respiratory failure Secondary to multilobar pneumonia Respiratory bio fire negative for everything including COVID-19 PCR Procalcitonin 0.28 Used to be on Trelegy inhaler in the past with no significant benefit. 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 Plan would be to repeat a CAT scan of the chest in 6-8 weeks and if the infiltrates are still persistent then bronchoscopy would be pursued Please note the above document was generated using voice recognition software. It may contain grammatical, syntax or spelling errors.Any formal questions or concerns about the content, text or information contained within the body of this dictation should be directly addressed to the provider for clarification. Admission and Anticipated Discharge Date Admission Date: September 19, 2022 Subjective Patient seen and examined at bedside. No acute distress, no events overnight He was saturating 94% on 2 L nasal cannula with heart rate of 74 I went down to 1 L. He says he is feeling less tightness after starting the nebulizers Bringing up phlegm little bit which is clear. No hemoptysis No headache, no nausea, no vomiting For appetite Review of Systems Review of Systems: All systems reviewed & are unremarkable except as noted in Subjective Physical Exam Physical Exam: Constitutional: No acute distress HEENT: EOMI, PERRLA Respiratory system: Decreased air entry bilaterally, minimal wheeze (better than yesterday), mild rhonchi, positive crackles bilaterally CVS: S1-S2 positive, no murmurs or gallops Abdomen: Soft, nontender, nondistended, positive bowel sounds x4 Extremities: +2 pulses bilaterally radialis/ dorsalis pedis, no cyanosis, no edema Neuro: Awake alert oriented x3 Psych: Normal mood and affect G/U: No Dixon Skin: no rashes, warm and dry Lymphatic: no cervical or axillary lymphadenopathy Results & Data Results & Data Vital Signs (Past 12 Hours) Vital Signs Temp Pulse Resp BP Pulse Ox O2 Del Method O2 Flow Rate 09/21/22 07:55 36.6 C 73 19 124/75 90 Room Air 09/21/22 07:22 79 18 92 Room Air 09/20/22 21:49 64 24 94 Nasal Cannula 1 09/20/22 21:38 Nasal Cannula 2 09/20/22 21:38 36.7 C 69 22 132/78 92 Nasal Cannula 2 Laboratory Results 09/21/22 08:09 09/21/22 08:09 PG Care Time/CCT Total # of Minutes Spent Total Time Spent with Patient: Total time spent is greater than 50% in coordination of care (as documented) at patient's floor/unit and/or counseling patient: Coding Level of Care Code 11921 SUB INP/OBS CARE 3/50MIN Diagnoses Acute respiratory failure with hypoxia J96.01 Lupus anticoagulant disorder D68.62 Elevated IgE level R76.[address] scan of lung R91.8
[2022-09-21] MEDS: SERTRALINE HCL 100 MG TABLET PO SCH (08:55)
[2022-09-21] MEDS: APIXABAN 5 MG TABLET PO SCH ×2 (08:55→20:10)
[2022-09-21] MEDS: ASPIRIN 81 MG ECTAB PO SCH (08:55)
[2022-09-21] MEDS: AZITHROMYCIN 250 MG TAB PO SCH (08:55)
[2022-09-21] MEDS: ATORVASTATIN 40 MG TAB PO SCH (08:55)
[2022-09-21 08:56] LABS: BUN Creatinine Ratio 15.1 (10-20); Basophils # (auto) 0.03 K/uL (0-0.2); Basophils % (auto) 0.4 %; Calcium 8.6 mg/dl (8.6-10.3); Eosinophils # (auto) 1.47 K/uL (0-0.50); Eosinophils % (auto) 21.7 %; Est GFR (African American) 105.2 ml/min; Est GFR (Non-African American) 90.8 ml/min; Hematocrit (blood only) 37.4 % (42.0-52.0); Hemoglobin 13.2 g/dl (14.0-18.0); Immature Granulocytes # (auto) 0.03 K/uL (0.01-0.20); Immature Granulocytes % (auto) 0.4 %; Lymphocytes # (auto) 1.09 K/uL (1.2-3.4); Lymphocytes % (auto) 16.1 %; Mean Corpuscular Hemoglobin 30.3 pg (25.0-34.0); Mean Corpuscular Hgb Conc 35.3 g/dL (32.0-36.0); Mean Corpuscular Volume 85.8 fL (80.0-100.0); Mean Platelet Volume 10.2 fL (9.4-12.4); Monocytes # (auto) 0.46 K/uL (0.11-0.59); Monocytes % (auto) 6.8 %; Neutrophils # (auto) 3.68 K/uL (1.40-6.50); Neutrophils % (auto) 54.6 %; Platelet Count 179 K/uL (130-400); Potassium 3.8 mmol/L (3.5-5.1); RDW Coefficient of Variation 13.6 % (11.5-14.5); RDW Standard Deviation 42.7 fL (36.4-46.3); Red Blood Count 4.36 M/uL (4.70-6.10); White Blood Count 6.76 K/ul (4.8-10.8)
[2022-09-21] MEDS: PANTOprazole 40 MG TAB PO SCH (08:56)
[2022-09-21] MEDS: FLUTICASONE PROPIONATE NA SPR 16 GM BTL NAE SCH ×2 (08:56→20:09)
[2022-09-21] MEDS: AZELASTINE HCL 0.1% NASAL 200 SPRAYS/27,400 MCG BTL SCH ×2 (08:56→20:09)
--- NOTE | 2022-09-21 10:10 | Hospitalist Progress Note ---
Date of Service September 21, 2022 Assessment & Plan (1) Acute respiratory failure with hypoxia: Plan: Acute on chronic hypoxic respiratory failure Multifocal Pneumonia -History of intermittent dyspnea x4 years, welding fume exposure, elevated IgE level, eosinophilia, apparent cryptogenic pneumonia -Noted history of prolonged steroid use -EKG wnl, D-dimer, troponin, COVID/flu/RSV, procalcitonin normal, RVP negative, Fungitell still pending -CXR- no acute process, chronic findings include R midlung linear scarring/atelectasis, hyperinflation w/ diaphragmatic flattening -Chest CT- b/l multifocal ground glass opacities w/ lower lobe + subpleural predominance suggesting infectious/inflammatory pneumonitis, may be viral -Recommend 3-4 month f/u chest CT -Pending studies- Fungitell, sputum Cx, Legionella, outpatient PFTs from 09/01/22 -Continue azithromycin -Continue pulmonary supportive care regimen -Azelastine -Flonase -Budenoside -Formoterol -Hypertonic saline nebulizers -Flutter valve, IS -Currently stable on 2L NC O2, wean to RA as tolerated -Will need 2 step prior to discharge Paroxysmal atrial fibrillation -Currently sinus rhythm, rate-controlled -Continue apixaban History of TIA Lupus anticoagulant positive in the past Continue aspirin, Eliquis GERD Continue pantoprazole HLD Continue statin Depression -Continue sertraline DVT prophylaxis: Eliquis Diet: Regular Disposition: Medical/surgical CODE STATUS: Full (2) TIA (transient ischemic attack): (3) Lupus anticoagulant disorder: Admission and Anticipated Discharge Date Admission Date: September 19, 2022 Supervising Physician Co-Signing Physician Notes Resident Physician Supervision Note: I independently interviewed and examined the patient and verified the dwyer history and physical, reviewed labs and image studies and agree with resident findings and care plan. Subjective Acute events overnight- none. Pt examined at bedside. Reports no change in his symptoms from admission, but denies worsening. Denies dyspnea at rest, only on exertion. Review of Systems Review of Systems: Per HPI/Subjective Physical Exam Physical Exam: General: Grossly alert and oriented. NAD, cooperative HEENT: Atraumatic, normocephalic. Moist mucous membranes Neck: supple, trachea midline CV: RRR, normal S1 and S2, no murmurs Resp: mild inspiratory and expiratory wheezes of upper lobes R > L, clear LLL, coarse breath sounds, no accessory muscle use Abd: soft, nontender, nondistended Ext: no LE peripheral edema or erythema Results & Data Results & Data Vital Signs (Past 12 Hours) Vital Signs Temp Pulse Resp BP Pulse Ox O2 Del Method O2 Flow Rate 09/21/22 08:59 96 Nasal Cannula 2 09/21/22 07:55 36.6 C 73 19 124/75 90 Room Air 09/21/22 07:22 79 18 92 Room Air Resident Activity Tracking Resident Involvement: Resident Care Provided Care Provided: Adult Hospital Medicine
--- NOTE | 2022-09-21 15:58 | XCELERA ---
[id number]
[2022-09-22 07:31] LABS: Hemoglobin 13.2 g/dl (14.0-18.0); Mean Corpuscular Hemoglobin 30.2 pg (25.0-34.0); Mean Corpuscular Hgb Conc 34.7 g/dL (32.0-36.0); Mean Platelet Volume 9.9 fL (9.4-12.4); Platelet Count 196 K/uL (130-400); RDW Coefficient of Variation 13.5 % (11.5-14.5); Red Blood Count 4.37 M/uL (4.70-6.10); White Blood Count 7.35 K/ul (4.8-10.8)
[2022-09-22] MEDS: FORMOTEROL 20 MCG/2 ML VIAL INH SCH ×2 (07:35→19:17)
[2022-09-22] MEDS: BUDESONIDE 0.25 MG/2 ML VIAL (PULMICORT) NEB SCH ×2 (07:35→19:19)
[2022-09-22] MEDS: SODIUM CHLOR 7% 4 ML NEB NEB SCH ×2 (07:36→19:18)
--- NOTE | 2022-09-22 07:41 | Discharge Summary ---
Date of Service September 22, 2022 Admission HPI Per Admitting Provider Roderick Bailey is a 56-year-old male with a past medical history of interstitial lung disease and chronic shortness of breath, A-fib with history of lupus anticoagulant, TIA on aspirin, eosinophilia pending follow-up to pulmonary with Nucala evaluation, asthma, and rotator cuff arthropathy Shaun is seen with his Sandra at the bedside. He reports he was more short of breath and hypoxic for the the last 2 days. Called his PCP and was recommended to have an appointment as outpatient as long as SpO2 was remaining above 90. In office there his levels were <90% and was recommended for ER evaluation. Warm a few days ago, but denies chills or sweats. +Increasingly productive cough with green/yellow sputum which 'has been worse in the past" but if new and worse compared to 3 weeks ago No nausea, vomiting, or diarrhea. No chest pain or chest pressure. Feels tight in the chest with breathing with wheezing, but not pain/pressure. Similar to breathing exacerbations last 3-[address] Saeed and was on Dupixent for around 6 weeks but did not have any benefit and stopped this on followup. Followed with [facility] after and 'just never got an answer' Saw Dr. Arboleda around 1 week ago, assessment unclear but did not have all records available at that time but was pending PFTs in a few weeks, imaging requested, and will followup again in October. Endorses chronic post nasal drip which have also been worse in the last few days. Reports many years ago saw Dr. Zayas for a deviated septum. - Records requested from [facility] - Pt does note that his symptoms seemed to worsen since having COVID Feb 2021. Did not need oxygen at the time, but seemed to gradually get worse after he recovered from the acute illness. - Last CT scan in [facility] with GGO in the lung few years ago ~2020, last CT here 2021 - Will update CT scan and request records. - Had been on many courses of prednisone for extended periods in the past. REcently completed a 6 week course of bactrim 1-2 months. Denies hx of PJP. Medical History: Reviewed Medications: Reviewed Surgical History: Reviewed Family history: Reviewed Allergies: Reviewed Social History: No tobacco, no etoh. +welding fume exposure. Code Status: Full Discharge Data Allergies Allergy/AdvReac Type Severity Reaction Status Date / Time oxycodone Allergy Intermediate Vomiting Verified 09/19/22 13:27 niacin Allergy Unverified 09/19/22 13:27 hydrocodone AdvReac Intermediate Vomiting Verified 09/19/22 13:27 Consultations 09/19/22 16:58 ED Decision to Admit Stat 09/20/22 09:49 Consult Pulmonology Routine Ordered Studies 09/19/22 17:41 CT chest diagnostic wo con Stat Hospital Course (1) Acute respiratory failure with hypoxia: Acute on chronic hypoxic respiratory failure Multifocal Pneumonia -History of intermittent dyspnea x4 years, welding fume exposure, elevated IgE level, eosinophilia, apparent cryptogenic pneumonia -Noted history of prolonged steroid use -EKG wnl, D-dimer, troponin, COVID/flu/RSV, procalcitonin normal, RVP negative, Fungitell still pending -CXR- no acute process, chronic findings include R midlung linear scarring/atelectasis, hyperinflation w/ diaphragmatic flattening -Chest CT- b/l multifocal ground glass opacities w/ lower lobe + subpleural predominance suggesting infectious/inflammatory pneumonitis, may be viral -Recommend 3-4 month f/u chest CT -Pending studies- Fungitell, sputum Cx, Legionella, outpatient PFTs from 09/01/22 -Continue azithromycin -Continue pulmonary supportive care regimen -Azelastine -Flonase -Budenoside -Formoterol -Hypertonic saline nebulizers -Flutter valve, IS -Currently stable on 2L NC O2, wean to RA as tolerated -Will need 2 step prior to discharge Paroxysmal atrial fibrillation -Currently sinus rhythm, rate-controlled -Continue apixaban History of TIA Lupus anticoagulant positive in the past Continue aspirin, Eliquis GERD Continue pantoprazole HLD Continue statin Depression -Continue sertraline DVT prophylaxis: Eliquis Diet: Regular Disposition: Medical/surgical CODE STATUS: Full (2) TIA (transient ischemic attack): (3) Lupus anticoagulant disorder: Discharge Plan Discharge Items Reason For Visit: AOC HYPOXIC RF Follow-up/Referrals: Song Pride MD [Primary Care Provider] - Medications and DC Order Prescriptions: No Action pantoprazole 40 mg tablet,delayed release (DR/EC) 40 mg PO QAM Qty: 30 11RF sertraline 100 mg tablet 200 mg PO DAILY Qty: 30 11RF diclofenac potassium 50 mg tablet 50 mg PO TID PRN (Reason: Pain) budesonide 0.5 mg/2 mL suspension for nebulization 0.5 mg inhalation BID PRN (Reason: Shortness Of Breath) fluticasone propionate 50 mcg/actuation spray,suspension 1 - 2 spray INTRANASAL BID PRN (Reason: Congestion) aspirin 81 mg Tablet,Delayed Release (Dr/Ec) 81 mg PO DAILY Qty: 90 3RF Rx Instructions: purchase [id number] Eliquis 5 mg tablet 5 mg PO BID atorvastatin 40 mg tablet 40 mg PO DAILY propranolol 20 mg tablet 20 mg PO TID PRN (Reason: tremors) Admission Data Admit Date/Time: 09/19/22 17:41 Attending Provider: Shania Robles Admit Provider: Jose Mensah Primary Care Provider: Song Pride Other Providers: Jose Mensah ; Gerson León ; Ruel Correa ; Darian Nicole ; Darrell Arboleda ; Sandra Ocampo ; Suha Watson
[2022-09-22 07:52] LABS: BUN Creatinine Ratio 16.7 (10-20); Calcium 8.9 mg/dl (8.6-10.3); Creatinine Clr Calc Pharmacy 94.8 ml/min; Est GFR (African American) 94.1 ml/min; Est GFR (Non-African American) 81.2 ml/min; Potassium 4.1 mmol/L (3.5-5.1)
[2022-09-22] MEDS: AZELASTINE HCL 0.1% NASAL 200 SPRAYS/27,400 MCG BTL SCH ×2 (08:31→20:00)
[2022-09-22] MEDS: FLUTICASONE PROPIONATE NA SPR 16 GM BTL NAE SCH ×2 (08:31→20:00)
[2022-09-22] MEDS: ACETAMINOPHEN 325 MG TAB PO PRN ×2 (08:32→12:30)
[2022-09-22] MEDS: AZITHROMYCIN 250 MG TAB PO SCH (08:33)
[2022-09-22] MEDS: PANTOprazole 40 MG TAB PO SCH (08:33)
[2022-09-22] MEDS: ATORVASTATIN 40 MG TAB PO SCH (08:33)
[2022-09-22] MEDS: SERTRALINE HCL 100 MG TABLET PO SCH (08:34)
[2022-09-22] MEDS: APIXABAN 5 MG TABLET PO SCH ×2 (08:34→19:59)
[2022-09-22] MEDS: ASPIRIN 81 MG ECTAB PO SCH (08:34)
--- NOTE | 2022-09-22 08:38 | Pulmonology Progress Note ---
Date of Service September 22, 2022 Assessment & Plan (1) Acute respiratory failure with hypoxia: (2) Lupus anticoagulant disorder: (3) Elevated IgE level: (4) Abnormal CT scan of lung: Plan PFT 12/12/2019 personally reviewed: No obstructive lung dysfunction, in significant bronchodilator response FVC 4.8 L 96%, FEV1 3.75 L 95%, FEV1/FVC 78%, TLC 93%, DLCO 79% CT chest 09/19/2022 personally reviewed: Minimal bilateral apical pleural scarring Groundglass opacity in the right upper as well as left upper lobe as well as bilateral lower lobes Minimal tree-in-bud opacities appreciated in the lingula and right middle lobe Small hiatal hernia No significant mediastinal lymphadenopathy The ground-glass opacities in the tree-in-bud opacities are new compared to CAT scan done January 2022 -- Acute hypoxic respiratory failure Secondary to multilobar pneumonia Respiratory bio fire negative for everything including COVID-19 PCR Procalcitonin 0.28 Used to be on Trelegy inhaler in the past with no significant benefit. 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 Plan would be to repeat a CAT scan of the chest in 6-8 weeks and if the infiltrates are still persistent then bronchoscopy would be pursued Case discussed with Dr Lopez Please note the above document was generated using voice recognition software. It may contain grammatical, syntax or spelling errors.Any formal questions or concerns about the content, text or information contained within the body of this dictation should be directly addressed to the provider for clarification. Admission and Anticipated Discharge Date Admission Date: September 19, 2022 Subjective Patient seen and examined at bedside. No acute distress, no adverse events overnight. Patient was saturating 97% on 3 L nasal cannula. I went down to 1 L. Overall he says that he is feeling the same. He is coughing and bringing up clear phlegm. Denies any hemoptysis Chest tightness has improved. Denies any headache, no blurry vision. Has been afebrile Review of Systems Review of Systems: All systems reviewed & are unremarkable except as noted in Subjective Physical Exam Physical Exam: Constitutional: No acute distress HEENT: EOMI, PERRLA Respiratory system: Decreased air entry bilaterally, minimal wheeze (better than yesterday), No rhonchi, mild crackles bilateral lower lobes CVS: S1-S2 positive, no murmurs or gallops Abdomen: Soft, nontender, nondistended, positive bowel sounds x4 Extremities: +2 pulses bilaterally radialis/ dorsalis pedis, no cyanosis, no edema Neuro: Awake alert oriented x3 Psych: Normal mood and affect G/U: No Dixon Skin: no rashes, warm and dry Lymphatic: no cervical or axillary lymphadenopathy Results & Data Results & Data Vital Signs (Past 12 Hours) Vital Signs Temp Pulse Resp BP Pulse Ox O2 Del Method O2 Flow Rate 09/22/22 08:04 36.5 C 73 18 129/83 96 Nasal Cannula 3 09/22/22 07:38 70 18 94 Nasal Cannula 3 09/21/22 22:07 36.9 C 65 18 148/88 H 96 Room Air Laboratory Results 09/22/22 07:12 09/22/22 07:12 PG Care Time/CCT Total # of Minutes Spent Total Time Spent with Patient: Total time spent is greater than 50% in coordination of care (as documented) at patient's floor/unit and/or counseling patient: Coding Level of Care Code 05900 SUB INP/OBS CARE 2/35MIN Diagnoses Acute respiratory failure with hypoxia J96.01 Lupus anticoagulant disorder D68.62 Elevated IgE level R76.[address] scan of lung R91.8
--- NOTE | 2022-09-22 09:16 | Hospitalist Progress Note ---
Date of Service September 22, 2022 Assessment & Plan (1) Acute respiratory failure with hypoxia: Plan: Acute on chronic hypoxic respiratory failure Multifocal Pneumonia Bilateral pneumonia per CXR/CT, and largely stable in appearance on 09/21. Patient still dyspneic at rest and remains on 2-3L supplemental O2. Exam slightly improved today. - fungitell/legionella pending - Pulmonology on board - appreciate ongoing recs - Continue azithromycin (day 08/23) - Continue pulmonary supportive care regimen -Azelastine -Flonase -Budenoside -Formoterol -Hypertonic saline nebulizers -Flutter valve, IS -Currently stable on 2-3L NC O2, wean to RA as tolerated -Will likely need 2 step prior to discharge Paroxysmal atrial fibrillation Currently sinus rhythm, rate-controlled -Continue apixaban History of TIA Lupus anticoagulant positive in the past Continue aspirin, Eliquis GERD Continue pantoprazole HLD Continue statin Depression - Continue sertraline Essential Tremor - continue home PRN Propranolol DVT prophylaxis: Eliquis Diet: Regular Disposition: Medical/surgical CODE STATUS: Full (2) TIA (transient ischemic attack): (3) Lupus anticoagulant disorder: Admission and Anticipated Discharge Date Admission Date: September 19, 2022 Supervising Physician Co-Signing Physician Notes Resident Physician Supervision Note: I independently interviewed and examined the patient and verified the dwyer history and physical, reviewed labs and image studies and agree with resident findings and care plan. Subjective Patient reports that he is still coughing and at times short of breath even while in bed, which worsens when he stands up. Reports he is not back to baseline. May be slightly improved. Review of Systems Review of Systems: All systems reviewed & are unremarkable except as noted in HPI & below Physical Exam Physical Exam: General: A&Ox3. NAD. Cooperative. HEENT: Atraumatic, normocephalic. Pulm: Bilateral crackles most prominent in bases. No wheezes. Symmetrical chest rise. No increase work of breathing. No respiratory distress. Cardiac: RRR, -mrg. Radial pulses intact and symmetrical. No LE edema. Abdominal: soft, non-tender, non-distended, BS x 4 Skin: warm, dry, no rash Results & Data Results & Data Vital Signs (Past 12 Hours) Vital Signs Temp Pulse Resp BP Pulse Ox O2 Del Method O2 Flow Rate 09/22/22 08:04 36.5 C 73 18 129/83 96 Nasal Cannula 3 09/22/22 07:38 70 18 94 Nasal Cannula 3 09/21/22 22:07 36.9 C 65 18 148/88 H 96 Room Air Resident Activity Tracking Resident Involvement: Resident Care Provided Care Provided: Adult Hospital Medicine
--- NOTE | 2022-09-22 09:22 | XRay Report ---
XR chest 1V portable HISTORY: Shortness of breath. COMPARISON: Chest 09/19/2022. FINDINGS: No pneumothorax. No pleural effusions. The cardiac silhouette is normal in size. No evidenc e for pulmonary edema. No acute fractures identified. Faint patchy groundglass airspace opacities wit hin the mid to lower lung zones remain unchanged. This is better appreciated on the recent chest CT. IMPRESSION: No change in the hazy patchy groundglass airspace opacities suggestive of an atypical/viral pneumonit is. ACT 112: Negative or not required by law. Electronically signed by: Kem Mendieta M.D. 09/22/2022 9:21 AM
[2022-09-22] MEDS: BUDESONIDE 0.5 MG/2 ML VIAL (PULMICORT) INH PRN (19:17)
--- NOTE | 2022-09-23 06:14 | Hospitalist Progress Note ---
Date of Service September 23, 2022 Assessment & Plan (1) Acute respiratory failure with hypoxia: Plan: Acute on chronic hypoxic respiratory failure Multifocal Pneumonia Bilateral multifocal pneumonia on CXR/CT, with largely stable appearance on 09/21. Patient still dyspneic at rest but has been weened to RA - fungitell/legionella pending - Pulmonology consulted - appreciate ongoing recs - Azithromycin course completed 09/23 - Continue pulmonary supportive care regimen: Azelastine, fluticasone, budesonide, formoterol, hypertonic saline nebulizers, flutter valves and IS - Will require 2-step prior to discharge. Paroxysmal atrial fibrillation Currently sinus rhythm, rate-controlled - Continue apixaban History of TIA Lupus anticoagulant positive in the past Continue aspirin, Eliquis GERD Continue pantoprazole HLD Continue statin Depression - Continue sertraline Essential Tremor - continue home PRN Propranolol DVT prophylaxis: Eliquis Diet: Regular Disposition: Medical/surgical CODE STATUS: Full (2) TIA (transient ischemic attack): (3) Lupus anticoagulant disorder: Admission and Anticipated Discharge Date Admission Date: September 19, 2022 Subjective Feeling good overall. On 1L currently, was on RA overnight. SOB has definitely improved, but still not totally. Coughing sputum, the respiratory toilet is helping. Appetite is strong. No n/v. No chest or back pain. Eager to go home when ready. ---- Remained on RA overnight, VSS. Recorded 24h I&O at 150/0 - question accuracy. Review of Systems Review of Systems: as per HPI Physical Exam Physical Exam: General: Tired but otherwise well appearing 56yoM in NAD. HEENT: NCAT. - Eyes - Sclera are white, anicteric, and without injection. - Mouth - MMM - Neck - supple, no appreciable JVD Cardiac: Normal rate and regular rhythm; S1 and S2 present with no murmur detected Pulmonary: Good respiratory effort with symmetric expansion of the chest. No use of accessory muscles. Lungs demonstrated intermittent wheezes throughout all lung grewal, patchy decreases in air movement, slightly more noticable on R>L. Abdominal: Normoactive bowel sounds. Abdomen was soft, nondistended, and non- tender to palpation. Extremities: Upper and lower extremities are warm and well perfused. No peripheral edema in the lower extremities bilaterally Results & Data Results & Data Vital Signs (Past 12 Hours) Vital Signs Temp Pulse Resp BP Pulse Ox O2 Del Method FiO2 09/22/22 22:30 37.1 C 80 18 126/74 94 Room Air 09/22/22 19:41 Room Air 09/22/22 19:19 18 Room Air 89 Resident Activity Tracking Resident Involvement: Resident Care Provided Care Provided: Adult Hospital Medicine
[2022-09-23 07:05] LABS: Basophils # (auto) 0.02 K/uL (0-0.2); Basophils % (auto) 0.3 %; Eosinophils # (auto) 1.19 K/uL (0-0.50); Eosinophils % (auto) 16.4 %; Hematocrit (blood only) 38.7 % (42.0-52.0); Hemoglobin 13.7 g/dl (14.0-18.0); Immature Granulocytes # (auto) 0.04 K/uL (0.01-0.20); Immature Granulocytes % (auto) 0.6 %; Lymphocytes # (auto) 1.08 K/uL (1.2-3.4); Lymphocytes % (auto) 14.9 %; Mean Corpuscular Hemoglobin 30.6 pg (25.0-34.0); Mean Corpuscular Hgb Conc 35.4 g/dL (32.0-36.0); Mean Corpuscular Volume 86.4 fL (80.0-100.0); Monocytes # (auto) 0.61 K/uL (0.11-0.59); Monocytes % (auto) 8.4 %; Neutrophils % (auto) 59.4 %; Platelet Count 184 K/uL (130-400); RDW Coefficient of Variation 13.5 % (11.5-14.5); RDW Standard Deviation 42.2 fL (36.4-46.3); Red Blood Count 4.48 M/uL (4.70-6.10); White Blood Count 7.24 K/ul (4.8-10.8)
[2022-09-23 07:27] LABS: BUN Creatinine Ratio 15.5 (10-20); Calcium 8.8 mg/dl (8.6-10.3); Creatinine Clr Calc Pharmacy 99.7 ml/min; Est GFR (Non-African American) 86.3 ml/min; Potassium 4.1 mmol/L (3.5-5.1)
[2022-09-23] MEDS: BUDESONIDE 0.25 MG/2 ML VIAL (PULMICORT) NEB SCH (07:27)
[2022-09-23] MEDS: FORMOTEROL 20 MCG/2 ML VIAL INH SCH (07:27)
[2022-09-23] MEDS: SODIUM CHLOR 7% 4 ML NEB NEB SCH (07:27)
[2022-09-23] MEDS: SERTRALINE HCL 100 MG TABLET PO SCH (08:21)
[2022-09-23] MEDS: APIXABAN 5 MG TABLET PO SCH (08:21)
[2022-09-23] MEDS: AZITHROMYCIN 250 MG TAB PO SCH (08:22)
[2022-09-23] MEDS: ASPIRIN 81 MG ECTAB PO SCH (08:22)
[2022-09-23] MEDS: ATORVASTATIN 40 MG TAB PO SCH (08:22)
[2022-09-23] MEDS: FLUTICASONE PROPIONATE NA SPR 16 GM BTL NAE SCH (08:23)
[2022-09-23] MEDS: AZELASTINE HCL 0.1% NASAL 200 SPRAYS/27,400 MCG BTL SCH (08:23)
[2022-09-23] MEDS: PANTOprazole 40 MG TAB PO SCH (09:05)
--- NOTE | 2022-09-23 09:20 | Pulmonology Progress Note ---
Date of Service September 23, 2022 Assessment & Plan (1) Acute respiratory failure with hypoxia: (2) Lupus anticoagulant disorder: (3) Elevated IgE level: (4) Abnormal CT scan of lung: Plan PFT 12/12/2019 personally reviewed: No obstructive lung dysfunction, in significant bronchodilator response FVC 4.8 L 96%, FEV1 3.75 L 95%, FEV1/FVC 78%, TLC 93%, DLCO 79% CT chest 09/19/2022 personally reviewed: Minimal bilateral apical pleural scarring Groundglass opacity in the right upper as well as left upper lobe as well as bilateral lower lobes Minimal tree-in-bud opacities appreciated in the lingula and right middle lobe Small hiatal hernia No significant mediastinal lymphadenopathy The ground-glass opacities in the tree-in-bud opacities are new compared to CAT scan done January 2022 -- Acute hypoxic respiratory failure Secondary to multilobar pneumonia Respiratory bio fire negative for everything including COVID-19 PCR Procalcitonin 0.28 Used to be on Trelegy inhaler in the past with no significant benefit. 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 I would recommend nebulized treatment for him. Nebulized budesonide 500 mcg twice a day along with Brovana/Perforomist nebulized twice a day, hypertonic saline nebulized once a day. Mucinex and flutter valve as needed for chest congestion Plan would be to repeat a CAT scan of the chest in 6-8 weeks and if the infiltrates are still persistent then bronchoscopy would be pursued Follow-up with Dr. Arboleda as outpatient Case discussed with Dr Blake Please note the above document was generated using voice recognition software. It may contain grammatical, syntax or spelling errors.Any formal questions or concerns about the content, text or information contained within the body of this dictation should be directly addressed to the provider for clarification. Admission and Anticipated Discharge Date Admission Date: September 19, 2022 Subjective Patient seen and examined at bedside. No acute distress, no adverse events overnight He was saturating 92% on 1 L nasal cannula. Overall he says he is feeling better. Denies any chest tightness Coughing up clear phlegm with the help of flutter valve. No chest pain Fair appetite Review of Systems Review of Systems: All systems reviewed & are unremarkable except as noted in Subjective Physical Exam Physical Exam: Constitutional: No acute distress HEENT: EOMI, PERRLA Respiratory system: Decreased air entry bilaterally No rhonchi, no crackles, minimal expiratory wheeze anteriorly CVS: S1-S2 positive, no murmurs or gallops Abdomen: Soft, nontender, nondistended, positive bowel sounds x4 Extremities: +2 pulses bilaterally radialis/ dorsalis pedis, no cyanosis, no edema Neuro: Awake alert oriented x3 Psych: Normal mood and affect G/U: No Dixon Skin: no rashes, warm and dry Lymphatic: no cervical or axillary lymphadenopathy Results & Data Results & Data Vital Signs (Past 12 Hours) Vital Signs Temp Pulse Resp BP Pulse Ox O2 Del Method O2 Flow Rate 09/23/22 08:28 Nasal Cannula 2 09/23/22 07:27 18 90 Nasal Cannula 1 09/23/22 07:04 36.7 C 68 16 130/75 93 Room Air 09/22/22 22:30 37.1 C 80 18 126/74 94 Room Air Laboratory Results 09/23/22 05:48 09/23/22 05:48 PG Care Time/CCT Total # of Minutes Spent Total Time Spent with Patient: Total time spent is greater than 50% in coordination of care (as documented) at patient's floor/unit and/or counseling patient: Coding Level of Care Code 17535 SUB INP/OBS CARE 2/35MIN Diagnoses Acute respiratory failure with hypoxia J96.01 Lupus anticoagulant disorder D68.62 Elevated IgE level R76.[address] scan of lung R91.8
--- NOTE | 2022-09-23 13:12 | Discharge Summary ---
Date of Service September 23, 2022 Admission HPI Per Admitting Provider Roderick Bailey is a 56-year-old male with a past medical history of interstitial lung disease and chronic shortness of breath, A-fib with history of lupus anticoagulant, TIA on aspirin, eosinophilia pending follow-up to pulmonary with Nucala evaluation, asthma, and rotator cuff arthropathy Shaun is seen with his aSndra at the bedside. He reports he was more short of breath and hypoxic for the the last 2 days. Called his PCP and was recommended to have an appointment as outpatient as long as SpO2 was remaining above 90. In office there his levels were <90% and was recommended for ER evaluation. Warm a few days ago, but denies chills or sweats. +Increasingly productive cough with green/yellow sputum which 'has been worse in the past" but if new and worse compared to 3 weeks ago No nausea, vomiting, or diarrhea. No chest pain or chest pressure. Feels tight in the chest with breathing with wheezing, but not pain/pressure. Similar to breathing exacerbations last 3-[address] Saeed and was on Dupixent for around 6 weeks but did not have any benefit and stopped this on followup. Followed with [facility] after and 'just never got an answer' Saw Dr. Arboleda around 1 week ago, assessment unclear but did not have all records available at that time but was pending PFTs in a few weeks, imaging requested, and will followup again in October. Endorses chronic post nasal drip which have also been worse in the last few days. Reports many years ago saw Dr. Zayas for a deviated septum. - Records requested from [facility] - Pt does note that his symptoms seemed to worsen since having COVID Feb 2021. Did not need oxygen at the time, but seemed to gradually get worse after he recovered from the acute illness. - Last CT scan in [facility] with GGO in the lung few years ago ~2020, last CT here 2021 - Will update CT scan and request records. - Had been on many courses of prednisone for extended periods in the past. REcently completed a 6 week course of bactrim 1-2 months. Denies hx of PJP. Medical History: Reviewed Medications: Reviewed Surgical History: Reviewed Family history: Reviewed Allergies: Reviewed Social History: No tobacco, no etoh. +welding fume exposure. Code Status: Full Admission Exam Per Admitting Provider General: A&Ox3. NAD. Cooperative. HEENT: Atraumatic, normocephalic. Vision/hearing intact. RENARD. Pulm: RUL/RLL expiratory wheezes, basilar crackles, trace DAGO expiratory wheezes. No rales. Symmetrical chest rise. No increased work of breathing. No respiratory distress. Cardiac: RRR, -mrg. Radial pulses intact and symmetrical. Abdominal: Nontender, nondistended, soft. BS present. Ext: warm, dry Principal Diagnosis multilobar pneumonia Discharge Exam General: Tired but otherwise well appearing 56yoM in NAD. HEENT: NCAT. - Eyes - Sclera are white, anicteric, and without injection. - Mouth - MMM - Neck - supple, no appreciable JVD Cardiac: Normal rate and regular rhythm; S1 and S2 present with no murmur det ected Pulmonary: Good respiratory effort with symmetric expansion of the chest. No use of accessory muscles. Lungs demonstrated intermittent wheezes throughout all lung grewal, patchy decreases in air movement, slightly more noticable on R>L. Abdominal: Normoactive bowel sounds. Abdomen was soft, nondistended, and non- tender to palpation. Extremities: Upper and lower extremities are warm and well perfused. No peripheral edema in the lower extremities bilaterally Discharge Data Allergies Allergy/AdvReac Type Severity Reaction Status Date / Time oxycodone Allergy Intermediate Vomiting Verified 09/19/22 13:27 niacin Allergy Unverified 09/19/22 13:27 hydrocodone AdvReac Intermediate Vomiting Verified 09/19/22 13:27 Consultations 09/19/22 16:58 ED Decision to Admit Stat 09/20/22 09:49 Consult Pulmonology Routine -- excerpted from Dr. Ocampo, 09/23 "Plan PFT 12/12/2019personally reviewed: No obstructive lung dysfunction, insignificant bronchodilator response FVC 4.8 L 96%, FEV1 3.75 L 95%, FEV1/FVC 78%, TLC 93%, DLCO 79% CT chest 3personally reviewed: Minimal bilateral apical pleural scarring Groundglass opacity in the right upper as well as left upper lobe as well as bilateral lower lobes Minimal tree-in-bud opacities appreciated in the lingula and right middle lobe Small hiatal hernia No significant mediastinal lymphadenopathy The ground-glass opacities in the tree-in-bud opacities are new compared to CAT scan done January 2022 -- Acute hypoxic respiratory failure Secondary to multilobar pneumonia Respiratory bio fire negative for everything including COVID-19 PCR Procalcitonin 0.28 Used to be on Trelegy inhaler in the past with no significant benefit. 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 I would recommend nebulized treatment for him. Nebulized budesonide 500 mcg twice a day along with Brovana/Perforomist nebulized twice a day, hypertonic saline nebulized once a day. Mucinex and flutter valve as needed for chest congestion Plan would be to repeat a CAT scan of the chest in 6-8 weeks and if the infiltrates are still persistent then bronchoscopy would be pursued Follow-up with Dr. Arboleda as outpatient Case discussed with Dr Blake Please note the above document was generated using voice recognition software. It may contain grammatical, syntax or spelling errors.Any formal questions or concerns about the content, text or information contained within the body of this dictation should be directly addressed to the provider for clarification." Ordered Studies 09/19/22 17:41 CT chest diagnostic wo con Stat CT SCAN OF THE CHEST WITHOUT IV CONTRAST CLINICAL HISTORY: Hypoxia. Acute on chronic respiratory failure. COMPARISON STUDY: Chest CT dated 01/19/2022. Chest x-ray dated 09/19/2022. TECHNIQUE: CT scan of the thorax was performed from the thoracic inlet to the upper abdomen. Images are reviewed in the axial, sagittal, and coronal planes. IV contrast was not administered for this examination as per the referring clinician. A dose lowering technique was utilized adhering to the principles of ALARA. CT DOSE: 470.13 mGy.cm FINDINGS: Thyroid: Imaged portions of the thyroid gland are normal in size and attenuation. Thoracic aorta: The thoracic aorta is normal in caliber and demonstrates standard 3-vessel arch anatomy. Heart: The heart is normal in size and without pericardial effusion. The coronary arteries are densely calcified. Lungs and pleural spaces: Evaluation of the lung parenchyma is degraded by motion artifact. Secretions are noted in the trachea. There is multifocal ground glass consolidation seen throughout both lungs, greatest at the lung bases and in the subpleural distribution. No pleural effusion is identified. There are scattered calcified granulomas. A 2 mm left lower lobe nodule on image #264 is unchanged. Mediastinum: Prominent subcentimeter mediastinal lymph nodes are likely reactive. Analy: Not well assessed without IV contrast. Axillae: There is no axillary lymphadenopathy. Upper abdomen: Cholecystectomy clips are noted. The spleen is enlarged measuring at least 17 cm in length. Hepatomegaly is also noted. There is a small to moderate hiatal hernia. A duodenal diverticulum is noted. Skeletal structures: The skeletal structures appear osteopenic. No lytic or dejuan stic bony lesions are seen. IMPRESSION: 1. There is bilateral multifocal groundglass consolidation with a lower lobe and subpleural predominance. This suggests an infectious/inflammatory pneumonitis and may be viral. Correlate clinically. A 3-4 month follow-up chest CT is recommended to document resolution. 2. No pleural effusion. 3. Hepatosplenomegaly. 4. Additional findings as above. Hospital Course (1) Acute respiratory failure with hypoxia: Acute on chronic hypoxic respiratory failure Multifocal Pneumonia ?Moderate to severe asthma Admission CT and CXR demonstrating multilobar PNA. Thankfully, continued to demonstrate stability and interval improvements (both via imaging and clinically) through discharge - Respiratory BioFire (including COVID) negative, PCT low at 0.18, sputum culture negative. Fungitell/Legionella serologies pending. - Treated with azithromycin x 5d course (completed 09/23) - Pulmonology followed while here: Continue Perforomist and budesonide b.i.d. upon discharge, 7% NaCl nebs once (4cc) daily. Continue Mucinex, flutter valve. - 2 step on discharge - requiring 2 L with ambulation and RA with rest. - Close outpatient PCP and pulmonology follow-ups required. Paroxysmal atrial fibrillation Currently sinus rhythm, rate-controlled - Continue apixaban History of TIA Lupus anticoagulant positive in the past Continue aspirin, Eliquis GERD Continue pantoprazole HLD Continue statin Depression - Continue sertraline Essential Tremor - Possible that beta agonism may temporarily exacerbate this in the discharge period - Advised to cautiously use propranolol p.r.n. in setting of ongoing respiratory illness CODE STATUS: Full (2) TIA (transient ischemic attack): (3) Lupus anticoagulant disorder: Total Time Total Time Spent Total Time Spent (In Minutes): 30 Discharge Plan Discharge Items Patient Disposition: Home - Self-Care Reason For Visit: AOC HYPOXIC RF Discharge Diagnosis: multifocal pneumonia Activity: Per Instructions section Non-emergency contact: Primary Care Provider Call non-emergency contact if: you have any medication questions, your symptoms worsen and your temperature is above 101.5 Follow-up/Referrals: Song Pride MD [Primary Care Provider] - 09/28/22 11:00 am Diet: Regular Addtl Attending Provider Instructions: You were seen at [facility] for evaluation of shortness of breath. You were found to have pneumonia, which was treated with aggressive pulmonary clean-out (nebulizers, inhalers, medicines) as well as a brief course of antibiotics. Thankfully, you demonstrated persistent improvement throughout your stay. On discharge, you still required a small amount of oxygen. We suspect that over the next few days-weeks, your need for this oxygen will go down. Please aim to maintain an oxygen saturation (which you can determine by using a pulse oximeter) over 92% at all times. You will likely have an increased need for this oxygen when you are exerting yourself. Pneumonia can be tricky from a recovery perspective -- while you should see your breathing get progressively better, it still may be a while before you feel back to 'baseline'. This also applies with your energy level. Continue to push yourself just a little every day. If you are feeling tired, take a break; if, 2 hours after an activity, you are feeling significantly more tired than usual, it was probably too much. Continue to maintain good hydration and food intake. This is critical during recovery from an infection. Please follow-up with your PCP within the next week to review this visit and to have your lungs listened to. The pulmonology office will help arrange a follow- up with Dr. Arboleda in the office within the next 1-2 weeks. In the interim, if you experience significantly worsening shortness of breath, worsening cough, new/worsening fever / chills / sweats, nausea, vomiting, feelings like you're going to pass out -- please seek medical attention immediately for evaluation. Note the following medication changes/additions: - Budesonide 2mL twice daily (nebulized) - Perforomist 2mL twice daily (nebulized) - Hypertonic saline 4mL once daily (nebulized) - Mucinex 600mg twice daily as needed for chest congestion - Continue utilizing flutter valve as needed Please note that the Perforomist may create tremors based on how it works. Unless severe, we recommend holding your as-needed propranolol until discussed with your primary care doctor. Pending Studies at Discharge: Yes (Fungitell, urine legionella antigen) Stand-Alone Forms: My [facility], Smoking Cessation Medications and DC Order Prescriptions: New formoterol fumarate [Perforomist] 20 mcg/2 mL Solution For Nebulization 20 mcg inhalation BID 30 Days Qty: 120 0RF sodium chloride 7 % solution for nebulization 4 ml inhalation DAILY 30 Days Qty: 120 0RF budesonide 0.5 mg/2 mL suspension for nebulization 0.5 mg inhalation BID Qty: 60 0RF guaifenesin [Mucinex] 600 mg tablet extended release 12hr 600 mg PO BID PRN (Reason: congestion, cough) Qty: 30 0RF Continued pantoprazole 40 mg tablet,delayed release (DR/EC) 40 mg PO QAM Qty: 30 11RF sertraline 100 mg tablet 200 mg PO DAILY Qty: 30 11RF diclofenac potassium 50 mg tablet 50 mg PO TID PRN (Reason: Pain) fluticasone propionate 50 mcg/actuation spray,suspension 1 - 2 spray INTRANASAL BID PRN (Reason: Congestion) aspirin 81 mg Tablet,Delayed Release (Dr/Ec) 81 mg PO DAILY Qty: 90 3RF Rx Instructions: purchase cudj-e[facility]-[place] Eliquis 5 mg tablet 5 mg PO BID atorvastatin 40 mg tablet 40 mg PO DAILY propranolol 20 mg tablet 20 mg PO TID PRN (Reason: tremors) Discontinued budesonide 0.5 mg/2 mL suspension for nebulization 0.5 mg inhalation BID PRN (Reason: Shortness Of Breath) Discharge Orders: Discharge Order (Routine); Ordered 09/23/22 Ordered By: Raúl Damico Admission Data Admit Date/Time: 09/19/22 17:41 Attending Provider: Shania Robles Admit Provider: Jose Mensah Primary Care Provider: Song Pride Other Providers: Jose Mensah ; Gerson León ; Ruel Correa ; Darian Nicole ; Darrell Arboleda ; Sandra Ocampo ; Suha Watson Supervising Physician Co-Signing Physician Notes Resident Physician Supervision Note: I independently interviewed and examined the patient and verified the dwyer history and physical, reviewed labs and image studies and agree with resident findings and care plan.
[2022-09-24 22:07] LABS: Fungitell (1-3)-B-D-Glucan <31 pg/mL
== END 2022-09-23 15:08 | disposition home or self-care (01) | DRG 193 ==
LOC: ED 14:20 → 3N 17:41 → SUATTDRO 17:41 → 3N 20:07